=== PATIENT | female | born 1990 | race Caucasian/White ===

== ENCOUNTER 2016-08-05 09:16 | Inpatient (IN) | payer OTHER ==
[~2016-08-05] VITALS: Ht 154.9 cm; Wt 107.5 kg
[~2016-08-05 09:16] MED LIST: CALC667C6 PO; DILT240C32 PO; DILT240C66 PO; ESCI10TA PO; FERR325T58 PO; FEXO180T81 PO; FURO80TA72 PO; HYDR-2869 PO; HYDR25TA9 PO; INSU100I13 SQ; INSU100V3 SQ; LABE100T3 PO; LAMO100T PO; LURA80TA PO; METO10TA PO; METO5TAB4 PO; MULT-206 PO; NORG1TAB39 PO; NORG1TAB7 PO; ONDA4TAB7 PO; OXYC-323 PO; POLY17PO5 PO; PROAIR HFA8.5 GM INH; SODI650T PO; VALS320T9 PO; [UNRECOGNIZED DRUG - OTHER]
[2016-08-05 10:17] LABS: BASO % 0 % (0-3); EOS % 0 % (0-3); HEMATOCRIT 23.9 % (36.0-47.0); HEMOGLOBIN 8.3 g/dL (12.0-15.5); LYMPH # 1.2 x10^3/uL (1.0-4.8); LYMPH % 14 % (24-48); MEAN CORPUSCULAR HEMOGLOBIN 31 pg (25-35); MEAN CORPUSCULAR HGB CONC 35 g/dL (31-37); MEAN CORPUSCULAR VOLUME 90 fL (79-100); MONO % 4 % (0-9); NEUT % 82 % (31-73); PLATELET COUNT 236 x10^3/uL (140-400); RED BLOOD COUNT 2.65 x10^6/uL (3.50-5.40); RED CELL DISTRIBUTION WIDTH 12.7 % (11.5-14.5); WHITE BLOOD COUNT 8.6 x10^3/uL (4.0-11.0)
[2016-08-05 10:25] LABS: CALCIUM 8.7 mg/dL (8.5-10.1); CREATININE 3.4 mg/dL (0.6-1.0); GFR 16.2; POTASSIUM 4.4 mmol/L (3.5-5.1)
[2016-08-05 10:36] LABS: ALBUMIN 2.1 g/dL (3.4-5.0); ALBUMIN/GLOBULIN RATIO 0.5 (1.0-1.7); TOTAL BILIRUBIN 0.3 mg/dL (0.2-1.0); TOTAL PROTEIN 6.2 g/dL (6.4-8.2)
[2016-08-05] MEDS ORDERED: VANCOMYCIN PER PHARMACY MC PRN (10:45)
[2016-08-05] MEDS ORDERED: ACETAMINOPHEN 325 MG TABLET. PO PRN (10:45)
[2016-08-05] MEDS ORDERED: ONDANSETRON PF 4 MG/2 ML VIAL. IV PRN (10:45)
[2016-08-05 10:51] LABS: OBC FLU VALID
[2016-08-05] MEDS ORDERED: VANCOMYCIN 2 GM in IV NORMAL SALINE 500ML BAG 500 ML IV ONE (11:00)
--- NOTE | 2016-08-05 11:13 | PHYS DOC ---
Past Medical History Past Medical History: , Anxiety, Depression, Diabetes-Type II, Hypertension, Renal Failure, Other Additional Past Medical Histor: ESRD,GASTROPARESIS Past Surgical History: Cholecystectomy, Other Additional Past Surgical Histo: L FISTULA Alcohol Use: None Drug Use: None Adult General Chief Complaint Chief Complaint: FEVER HPI HPI Very unfortunate 26-year-old female who has end-stage renal disease on dialysis presents with fever to 102 last night. She has a catheter in her right upper chest which she's had for a couple of weeks now and states there has been some drainage from the area but no tenderness around the catheter. She is really not had any other symptoms to speak of. She denies any cough or congestion she denies back or abdominal pain. She's not had any headache or neck pain. She is concerned that her catheter may be infected. [] Review of Systems Review of Systems Constitutional: Per history of present illness [] Eyes: Denies change in visual acuity, redness, or eye pain [] HENT: Denies nasal congestion or sore throat [] Respiratory: Denies cough or shortness of breath [] Cardiovascular: No additional information not addressed in HPI [] GI: Denies abdominal pain, nausea, vomiting, bloody stools or diarrhea [] : Denies dysuria or hematuria [] Musculoskeletal: Denies back pain or joint pain [] Integument: Denies rash or skin lesions [] Neurologic: Denies headache, focal weakness or sensory changes [] Endocrine: Denies polyuria or polydipsia [] Allergies Allergies Allergies Coded Allergies Type Severity Reaction Last Updated Verified lurasidone Allergy Severe 04/15/16 Yes Physical Exam Physical Exam Constitutional: Well developed, well nourished, no acute distress, non-toxic appearance. [] HENT: Normocephalic, atraumatic, bilateral external ears normal, oropharynx moist, no oral exudates, nose normal. [] Eyes: PERRLA, EOMI, conjunctiva normal, no discharge. [] Neck: Normal range of motion, no tenderness, supple, no stridor. [] Cardiovascular:Heart rate regular rhythm, no murmur [] Lungs & Thorax: Bilateral breath sounds clear to auscultation [] Abdomen: Bowel sounds normal, soft, no tenderness, no masses, no pulsatile masses. [] Skin: She has a dialysis catheter in the right upper chest the tunnel site is not tender there is no drainage there is no erythematous area [] Back: No tenderness, no CVA tenderness. [] Extremities: No tenderness, no cyanosis, no clubbing, ROM intact, no edema. [] Neurologic: Alert and oriented X 3, normal motor function, normal sensory function, no focal deficits noted. [] Psychologic: Affect normal, judgement normal, mood normal. [] Current Patient Data Vital Signs Vital Signs Date Time Temp Pulse Resp B/P Pulse Ox O2 Delivery O2 Flow Rate FiO2 08/05/16 09:25 97.6 105 20 153/69 97 Room Air 97.6 Lab Values Laboratory Tests Test 08/05/16 09:47 08/05/16 10:14 White Blood Count 8.6x10^3/uL (4.0-11.0) Red Blood Count 2.65x10^6/uL (3.50-5.40) L Hemoglobin 8.3g/dL (12.0-15.5) L Hematocrit 23.9% (36.0-47.0) L Mean Corpuscular Volume 90fL (79-100) Mean Corpuscular Hemoglobin 31pg (25-35) Mean Corpuscular Hemoglobin Concent 35g/dL (31-37) Red Cell Distribution Width 12.7% (11.5-14.5) Platelet Count 236x10^3/uL (140-400) Neutrophils (%) (Auto) 82% (31-73) H Lymphocytes (%) (Auto) 14% (24-48) L Monocytes (%) (Auto) 4% (0-9) Eosinophils (%) (Auto) 0% (0-3) Basophils (%) (Auto) 0% (0-3) Neutrophils # (Auto) 7.0x10^3uL (1.8-7.7) Lymphocytes # (Auto) 1.2x10^3/uL (1.0-4.8) Monocytes # (Auto) 0.3x10^3/uL (0.0-1.1) Eosinophils # (Auto) 0.0x10^3/uL (0.0-0.7) Basophils # (Auto) 0.0x10^3/uL (0.0-0.2) Sodium Level 135mmol/L (136-145) L Potassium Level 4.4mmol/L (3.5-5.1) Chloride Level 98mmol/L (98-107) Carbon Dioxide Level 24mmol/L (21-32) Anion Gap 13 (6-14) Blood Urea Nitrogen 41mg/dL (7-20) H Creatinine 3.4mg/dL (0.6-1.0) H Estimated GFR (Cockcroft-Gault) 16.2 BUN/Creatinine Ratio 12 (6-20) Glucose Level 199mg/dL (70-99) H Lactic Acid Level 1.9mmol/L (0.4-2.0) Calcium Level 8.7mg/dL (8.5-10.1) Total Bilirubin 0.3mg/dL (0.2-1.0) Aspartate Amino Transferase (AST) 24U/L (15-37) Alanine Aminotransferase (ALT) 37U/L (14-59) Alkaline Phosphatase 99U/L (46-116) Total Protein 6.2g/dL (6.4-8.2) L Albumin 2.1g/dL (3.4-5.0) L Albumin/Globulin Ratio 0.5 (1.0-1.7) L Influenza Type A Antigen Negative (NEGATIVE) Influenza Type B Antigen Negative (NEGATIVE) Laboratory Tests 08/05/16 09:47 Laboratory Tests 08/05/16 09:47 EKG EKG [] Radiology/Procedures Radiology/Procedures [] Impressions: PROCEDURE: CHEST AP ONLY Indication fever. Protocol study. A single view of the chest was obtained. Comparison is made to a study 04/13/2016. The heart size is within normal limits. There is no congestive heart failure. A focal infiltrate is not seen. There is no pleural fluid or pneumothorax. Right-sided dialysis catheter is noted. IMPRESSION: No acute finding in the chest Course & Med Decision Making Course & Med Decision Making Pertinent Labs and Imaging studies reviewed. (See chart for details) [ED course: Evaluation reveals a 26-year-old male who actually looks pretty well today. She is afebrile in the department. I spoke with her psychiatric secretary to 100 her admitted to the hospital cultures drawn and a dose of vancomycin given. They will follow the cultures and dialyze her as an inpatient today.] Dragon Disclaimer Dragon Disclaimer This electronic medical record was generated, in whole or in part, using a voice recognition dictation system. Departure Departure Impression: Primary Impression: Fever Disposition: 09 ADMITTED INPATIENT Admitting Physician: Valente Molina Condition: STABLE Referrals: SANDRO DORANTES MD (PCP) Problem Qualifiers Primary Impression: Fever Fever type: unspecified Qualified Code: R50.9 - Fever, unspecified CONNOR BULLOCK DO Aug 05, 2016 11:13
[2016-08-05 11:45] VITALS: BP 138/65
--- NOTE | 2016-08-05 12:12 | ACF ---
Admission Forms Criteria FEVER Clinical Indications for Inpatient Care (Place 'X' for any and all applicable criteria): Ongoing inpatient care may be indicated for fever with ANY ONE of the following[ D] (5)(27)(28)(29)(30)(31): [ ]I. Bacteremia [ ]II. Evidence of significant systemic illness as indicated by ANY ONE of the following: [ ]a) Persistently high temperatures greater than 103.1 degrees F ( 39.5 degrees C) (oral) [ ]b) New-onset hypoxia [ ]c) Hemodynamic instability [ ]d) Mental status changes [ ]e) Decreased urine output due to developing renal insufficiency [ ]f) New focal neurologic deficit (eg, stroke) [ ]g) Seizures [ ]h) Rigors [ ]i) Dehydration or hypovolemia [ ]j) Inadequate oral intake [ ]III. Patient in the immediate postoperative period with ANY ONE of the following (E)(23)(24): [ ]a) Evidence of specific localizing infection requiring ongoing inpatient evaluation or treatment (eg,abscess, severe pneumonia, wound infection ) [ ]b) Known or suspected cause of fever requiring ongoing inpatient evaluation or treatment (eg, DVT) [ ]c) Evidence of malignant hyperthermia (eg, unexplained tachycardia and muscle rigidity after depolarizing muscular blocking agent or inhaled anesthetic agent) [ ]IV. Suspected cause requiring acute care (eg, endocarditis, meningitis) [ ]V. High suspicion of bacteremia as indicated by severe constitutional symptoms in patient at high risk as indicated by ANY ONE of the following: [ ]a) Immunocompromised state [D](22) [ ]b) Age <3 years or >65 years [ ]c) Severe comorbidities (eg, poorly controlled diabetes, severe COPD) [ ]. High suspicion for fungal infection as indicated by ANY ONE of the following (22)(25): [ ]a) Febrile neutropenia (WBC <500/mm3 (0.5 X 109/L)) for >4 days despite broad spectrum antibiotics [ ]b) Imaging findings suggestive of fungal infection [ ]c) Immunocompromised state [ ]d) Immunocompromised patient colonized with Aspergillus species [X]VII. Evidence of infection of medical devices such as implanted catheters or exposed hardware [ ]VIII. Suspected neuroleptic malignant syndrome as evidenced by ALL of the following (15): [ ]a) Recent use of neuroleptic medication (eg, haloperidol, prochlorperazine, metoclopramide) [ ]b) New-onset muscle rigidity Extended stay beyond goal length of stay for primary condition may be needed until ALL of the following are present(16)(17)(18)(19)(20)(21): [ ]a) Temperature status acceptable as indicated by ANY ONE of the following: [ ]i) Temp <38.1C (100.5 F) (oral) [ ]ii) Temp as expected for disease process and care performable at next level of care [ ]b) Hemodynamic stability [ ]c) Cultures negative or infection identified and under adequate treatment [ ]d) Behavior or mental status abnormalities absent or manageable at lower level of care (Also use Mental Status Change Criteria Form) for further information. [ ]e) Medical comorbidities absent or manageable at a lower level of care The original [facility] [employer] content created by [facility] has been revised. The portions of the content which have been revised are identified through the use of italic text or in bold, and [facility] has neither reviewed nor approved the modified material. All other unmodified content is copyright [facility]. Please see references footnoted in the original [facility] edition 2016 Admission Criteria Met?: Yes MYKE COHEN Aug 05, 2016 12:12
[2016-08-05] MEDS ORDERED: CYCL10TA2 PO (12:30)
[2016-08-05] MEDS ORDERED: ARIP20TA8 PO (12:30)
[2016-08-05] MEDS ORDERED: VITA0.8T2 PO (12:30)
[2016-08-05] MEDS ORDERED: DOCU-27 PO (12:30)
[2016-08-05] MEDS ORDERED: ERYT250T16 PO (12:30)
[2016-08-05] MEDS ORDERED: ESCI20TA PO (12:30)
[2016-08-05] MEDS ORDERED: OMEG300C PO (12:30)
[2016-08-05] MEDS ORDERED: LIDO700A4 TP (12:30)
[2016-08-05] MEDS ORDERED: INSU100C4 SQ (12:34)
--- NOTE | 2016-08-05 13:08 | RAD ---
Indication fever. Protocol study. A single view of the chest was obtained. Comparison is made to a study 04/13/2016. The heart size is within normal limits. There is no congestive heart failure. A focal infiltrate is not seen. There is no pleural fluid or pneumothorax. Right-sided dialysis catheter is noted. IMPRESSION: No acute finding in the chest
[2016-08-05] MEDS ORDERED: DIALYSIS PATIENT. MC PRN (15:15)
[2016-08-05 15:20] VITALS: BP 138/68
--- NOTE | 2016-08-05 16:07 | PDOC1 ---
History and Physical Past Medical History Past Medical History PAST MEDICAL HISTORY: Significant for: 1. Anxiety disorder in the past. 2. Asthma. 3. Depression. 4. Type 2 diabetes diagnosed in 2007 with diabetic retinopathy. 5. She also has iron deficiency anemia, SOCIAL HISTORY: , lives with her , nonsmoker, nondrinker, denies drug use that we know of. She was a previous smoker. FAMILY HISTORY: Positive for diabetes, Social History ALCOHOL: none Drugs: None Current Problem List Problem List Problems Medical Problems: (1) Fever Status: Acute Current Medications Current Medications Current Medications Medications (Trade) Dose Ordered Sig/Sherine Start Time Stop Time Status Last Admin Dose Admin Acetaminophen (Tylenol) 650 mg PRN Q4HRS PRN 08/05/16 10:45 08/06/16 10:44 08/05/16 11:56 650 MG Info (PHARMACY MONITORING -- do not chart) 1 each PRN DAILY PRN 08/05/16 15:15 Ondansetron HCl (Zofran) 4 mg PRN Q8HRS PRN 08/05/16 10:45 08/06/16 10:44 Vancomycin HCl 1 each 1 each PRN DAILY PRN 08/05/16 10:45 Vancomycin HCl/ Sodium Chloride (Iv Sodium Chloride 0.9% 500ml Bag) 500 ml @ 250 mls/hr 1X ONCE 08/05/16 11:00 08/05/16 12:59 DC 08/05/16 10:56 250 MLS/HR Allergies Allergies Allergies Coded Allergies Type Severity Reaction Last Updated Verified lurasidone Allergy Severe 04/15/16 Yes ROS Review of System CONSTITUTIONAL: No fever or chills EYES: No recent changes SKIN: fever and discharge at catheter site. CARDIOVASCULAR: No chest pain, syncope, palpitations, or edema RESPIRATORY: No SOB or cough GASTROINTESTINAL: No nausea, vomiting or abdominal pain NEUROLOGICAL: No headaches or weakness ENDOCRINE: No cold or heat intolerance GENITOURINARY: No urgency or frequency of urination MUSCULOSKELETAL: No back pain or joint pain LYMPHATICS: No enlarged lymph nodes PSYCHIATRIC: No anxiety or depression Physical Exam Physical Exam GEN.: No apparent distress. Alert and oriented. HEENT: Head is normocephalic, atraumatic NECK: Supple. no jvd LUNGS: Clear to auscultation. normal airflow HEART: RRR, S1, S2 present. Peripheral pulses intact ABDOMEN: Soft, nontender. Positive bowel sounds. EXTREMITIES: Without any cyanosis. NEUROLOGIC: Normal speech, normal tone PSYCHIATRIC: Normal affect, normal mood. SKIN: No visible ulcerations, cath site clear, no discharge. Vitals Vitals Vital Signs Date Time Temp Pulse Resp B/P Pulse Ox O2 Delivery O2 Flow Rate FiO2 08/05/16 15:20 99.4 87 20 138/68 96 Room Air 99.4 Labs Labs Laboratory Tests Test 08/05/16 09:47 08/05/16 10:14 08/05/16 11:48 White Blood Count 8.6x10^3/uL (4.0-11.0) Red Blood Count 2.65x10^6/uL (3.50-5.40) Hemoglobin 8.3g/dL (12.0-15.5) Hematocrit 23.9% (36.0-47.0) Mean Corpuscular Volume 90fL (79-100) Mean Corpuscular Hemoglobin 31pg (25-35) Mean Corpuscular Hemoglobin Concent 35g/dL (31-37) Red Cell Distribution Width 12.7% (11.5-14.5) Platelet Count 236x10^3/uL (140-400) Neutrophils (%) (Auto) 82% (31-73) Lymphocytes (%) (Auto) 14% (24-48) Monocytes (%) (Auto) 4% (0-9) Eosinophils (%) (Auto) 0% (0-3) Basophils (%) (Auto) 0% (0-3) Neutrophils # (Auto) 7.0x10^3uL (1.8-7.7) Lymphocytes # (Auto) 1.2x10^3/uL (1.0-4.8) Monocytes # (Auto) 0.3x10^3/uL (0.0-1.1) Eosinophils # (Auto) 0.0x10^3/uL (0.0-0.7) Basophils # (Auto) 0.0x10^3/uL (0.0-0.2) Sodium Level 135mmol/L (136-145) Potassium Level 4.4mmol/L (3.5-5.1) Chloride Level 98mmol/L (98-107) Carbon Dioxide Level 24mmol/L (21-32) Anion Gap 13 (6-14) Blood Urea Nitrogen 41mg/dL (7-20) Creatinine 3.4mg/dL (0.6-1.0) Estimated GFR (Cockcroft-Gault) 16.2 BUN/Creatinine Ratio 12 (6-20) Glucose Level 199mg/dL (70-99) Lactic Acid Level 1.9mmol/L (0.4-2.0) Calcium Level 8.7mg/dL (8.5-10.1) Total Bilirubin 0.3mg/dL (0.2-1.0) Aspartate Amino Transf (AST/SGOT) 24U/L (15-37) Alanine Aminotransferase (ALT/SGPT) 37U/L (14-59) Alkaline Phosphatase 99U/L (46-116) Total Protein 6.2g/dL (6.4-8.2) Albumin 2.1g/dL (3.4-5.0) Albumin/Globulin Ratio 0.5 (1.0-1.7) Influenza Type A Antigen Negative (NEGATIVE) Influenza Type B Antigen Negative (NEGATIVE) Glucose (Fingerstick) 133mg/dL (70-99) Laboratory Tests Test 08/05/16 09:47 08/05/16 10:14 08/05/16 11:48 White Blood Count 8.6x10^3/uL (4.0-11.0) Red Blood Count 2.65x10^6/uL (3.50-5.40) Hemoglobin 8.3g/dL (12.0-15.5) Hematocrit 23.9% (36.0-47.0) Mean Corpuscular Volume 90fL (79-100) Mean Corpuscular Hemoglobin 31pg (25-35) Mean Corpuscular Hemoglobin Concent 35g/dL (31-37) Red Cell Distribution Width 12.7% (11.5-14.5) Platelet Count 236x10^3/uL (140-400) Neutrophils (%) (Auto) 82% (31-73) Lymphocytes (%) (Auto) 14% (24-48) Monocytes (%) (Auto) 4% (0-9) Eosinophils (%) (Auto) 0% (0-3) Basophils (%) (Auto) 0% (0-3) Neutrophils # (Auto) 7.0x10^3uL (1.8-7.7) Lymphocytes # (Auto) 1.2x10^3/uL (1.0-4.8) Monocytes # (Auto) 0.3x10^3/uL (0.0-1.1) Eosinophils # (Auto) 0.0x10^3/uL (0.0-0.7) Basophils # (Auto) 0.0x10^3/uL (0.0-0.2) Sodium Level 135mmol/L (136-145) Potassium Level 4.4mmol/L (3.5-5.1) Chloride Level 98mmol/L (98-107) Carbon Dioxide Level 24mmol/L (21-32) Anion Gap 13 (6-14) Blood Urea Nitrogen 41mg/dL (7-20) Creatinine 3.4mg/dL (0.6-1.0) Estimated GFR (Cockcroft-Gault) 16.2 BUN/Creatinine Ratio 12 (6-20) Glucose Level 199mg/dL (70-99) Lactic Acid Level 1.9mmol/L (0.4-2.0) Calcium Level 8.7mg/dL (8.5-10.1) Total Bilirubin 0.3mg/dL (0.2-1.0) Aspartate Amino Transf (AST/SGOT) 24U/L (15-37) Alanine Aminotransferase (ALT/SGPT) 37U/L (14-59) Alkaline Phosphatase 99U/L (46-116) Total Protein 6.2g/dL (6.4-8.2) Albumin 2.1g/dL (3.4-5.0) Albumin/Globulin Ratio 0.5 (1.0-1.7) Influenza Type A Antigen Negative (NEGATIVE) Influenza Type B Antigen Negative (NEGATIVE) Glucose (Fingerstick) 133mg/dL (70-99) VTE Prophylaxis Ordered VTE Prophylaxis Devices: Yes VTE Pharmacological Prophylaxi: Yes FRANCIE BLAIR MD Aug 05, 2016 16:07
[2016-08-05] MEDS ORDERED: POLYETHYLENE GLYCOL 3350 17 GM PACKET. PO PRN (16:15)
[2016-08-05] MEDS ORDERED: NON FORMULARY ITEM (Albuterol Sulfate (Proair Hfa Inhaler) 1 PUFF) INH PRN (16:15)
[2016-08-05] MEDS ORDERED: ONDANSETRON ODT 4 MG TAB.RAPDIS PO PRN (16:30)
[2016-08-05] MEDS ORDERED: ALBUTEROL SULFATE 2.5 MG/3 ML NEBU. NEB PRN (16:30)
[2016-08-05] MEDS: METOCLOPRAMIDE 10 MG TABLET PO SCH (16:30)
[2016-08-05] MEDS: CALCIUM ACETATE 667 MG CAPSULE PO SCH (16:37)
[2016-08-05] MEDS: INSULIN ASPART 300 UNITS/3 ML INSULN.PEN SQ SCH (17:00)
[2016-08-05] MEDS ORDERED: INSULIN ASPART 300 UNITS/3 ML INSULN.PEN SQ SCH (17:00)
[2016-08-05] MEDS: OXYCODONE/APAP 5/325 TABLET. PO PRN ×2 (17:24→23:30)
--- NOTE | 2016-08-05 17:37 | PDOC2 ---
CONSULT Date of Consult Date of Consult DATE: 08/05/16 TIME: 17:32 Reason for Consult Reason for Consult: ESRD Referring Physician Referring Physician: Dr goldstein Identification/Chief Complaint Chief Complaint Fever Problems: Source Source: Chart review, Patient History of Present Illness Reason for Visit: as dictated Social History No ALCOHOL: none Drugs: None Lives: with Family Domestic Violence: Neg Current Problem List Problem List Problems Medical Problems: (1) Fever Status: Acute Current Medications Current Medications Current Medications Ondansetron HCl (Zofran) 4 mg PRN Q8HRS PRN IV NAUSEA/VOMITING; Start 08/05/16 at 10:45; Stop 08/06/16 at 10:44 Acetaminophen (Tylenol) 650 mg PRN Q4HRS PRN PO FEVER Last administered on 11:56; Start 08/05/16 at 10:45; Stop 08/06/16 at 10:44 Vancomycin HCl 1 each 1 each PRN DAILY PRN MC SEE COMMENTS; Start 08/05/16 at 10 :45; Stop 08/05/16 at 16:16; Status DC Vancomycin HCl/ Sodium Chloride (Iv Sodium Chloride 0.9% 500ml Bag) 500 ml @ 250 mls/hr 1X ONCE IV Last administered on 08/05/16 10:56; Start 08/05/16 at 11 :00; Stop 08/05/16 at 12:59; Status DC Info (PHARMACY MONITORING -- do not chart) 1 each PRN DAILY PRN MC SEE COMMENTS ; Start 08/05/16 at 15:15 Heparin Sodium (Porcine) 5,000 unit Q8HRS SQ ; Start 08/05/16 at 22:00 Vancomycin HCl (Vanco Per Pharmacy) 1 each PRN DAILY PRN MC SEE COMMENTS; Start 08/05/16 at 16:15 Calcium Acetate (Phoslo) 1,334 mg TIDWMEALS PO ; Start 08/05/16 at 17:00 Cyclobenzaprine HCl (Flexeril) 10 mg DAILY PO ; Start 08/06/16 at 09:00 Docusate Sodium (Colace) 100 mg DAILY PO ; Start 08/06/16 at 09:00 Furosemide (Lasix) 80 mg TID PO ; Start 08/05/16 at 21:00 Hydralazine HCl (Apresoline) 50 mg HS PO ; Start 08/05/16 at 21:00 Hydrochlorothiazide (Hydrodiuril) 25 mg DAILY PO ; Start 08/06/16 at 09:00 Labetalol HCl (Trandate) 100 mg BID PO ; Start 08/05/16 at 21:00 Lamotrigine (LaMICtal) 100 mg BID PO ; Start 08/05/16 at 21:00 Lidocaine (Lidoderm) 1 patch DAILY TP ; Start 08/06/16 at 09:00 Metoclopramide HCl (Reglan) 10 mg TIDBFRMEAL PO ; Start 08/05/16 at 16:30 Polyethylene Glycol (miraLAX PACKET) 17 gm PRN DAILY PRN PO CONSTIPATION 1ST CHOICE; Start 08/05/16 at 16:15 Non-Formulary Medication 1 puff PRN Q6HRS PRN INH SHORTNESS OF BREATH; Start at 16:15; Status UNV Aripiprazole (Abilify) 20 mg DAILY PO ; Start 08/06/16 at 09:00 Erythromycin (E-Mycin) 250 mg BID PO ; Start 08/05/16 at 21:00 Escitalopram Oxalate (Lexapro) 20 mg DAILY PO ; Start 08/06/16 at 09:00 Insulin Detemir (Levemir) 25 units QHS SQ ; Start 08/05/16 at 21:00 Insulin Aspart (Novolog) 15 units TIDWMEALS SQ ; Start 08/05/16 at 17:00; Stop at 17:00; Status DC Metolazone (Zaroxolyn) 5 mg DAILY PO ; Start 08/06/16 at 09:00 Multivitamins/ Calcium (Thera M Plus) 1 tab DAILY PO ; Start 08/06/16 at 09:00 Non-Formulary Medication 1 tab DAILY PO ; Start 08/06/16 at 09:00; Status UNV Fish Oil (Fish Oil) 1,000 mg DAILY PO ; Start 08/06/16 at 09:00 Ondansetron HCl (Zofran Odt) 4 mg PRN Q8HRS PRN PO NAUSEA/VOMITING; Start at 16:30 Losartan Potassium (Cozaar) 100 mg DAILY PO ; Start 08/06/16 at 09:00 Folic Acid/ Multivitamins/Vit B12 (Nephro-Robert) 1 tab DAILY PO ; Start 08/06/16 at 09:00 Albuterol Sulfate (Ventolin Neb Soln) 2.5 mg PRN Q6HRS PRN NEB SHORTNESS OF BREATH; Start 08/05/16 at 16:30 Insulin Aspart (Novolog) 20 units TIDWMEALS SQ ; Start 08/05/16 at 17:00 Oxycodone/ Acetaminophen (Percocet 5/325) 1 tab PRN Q4HRS PRN PO PAIN SEVERE Last administered on 08/05/16t 17:24; Start 08/05/16 at 17:15 Active Scripts Active Miralax (Polyethylene Glycol 3350) 17 Gm Powd.pack 17 Gm PO PRN DAILY PRN Metoclopramide Hcl 10 Mg Tablet 10 Mg PO TIDBFRMEAL Reported Novolog (Insulin Aspart) 100 Unit/1 Ml Cartridge 20 Unit SQ TIDWMEALS Dionisio-Tab (Erythromycin Base) 250 Mg Tablet.dr 250 Mg PO BID Dialyvite 800 With Zinc (Vitamin B Comp W-C/Fa/Zinc) 0.8 Mg Tablet 0.8 Mg PO DAILY Escitalopram Oxalate 20 Mg Tablet 1 Tab PO DAILY Fish Oil (Benton-3 Fatty Acids) 300 Mg Capsule 300 Mg PO DAILY Colace (Docusate Sodium) 100 Mg Capsule 1 Cap PO DAILY Cyclobenzaprine Hcl 10 Mg Tablet 1 Tab PO DAILY Abilify (Aripiprazole) 20 Mg Tablet 20 Mg PO DAILY Lidoderm (Lidocaine) 700 Mg Adh..patch 1 Patch TP DAILY Percocet 5-325 Mg Tablet (Oxycodone/Acetaminophen) 1 Each Tablet 1 Tab PO PRN Q4 -6HRS PRN Metolazone 5 Mg Tablet 5 Mg PO DAILY Lamotrigine 100 Mg Tablet 1 Tab PO BID Valsartan 320 Mg Tablet 320 Mg PO DAILY Zofran (Ondansetron Hcl) 4 Mg Tablet 4 Mg PO TID PRN Essential Daily (Multivit With Calcium,Iron,Min) 1 Each Tablet 1 Each PO DAILY Lasix (Furosemide) 80 Mg Tablet 80 Mg PO TID Trinessa (Norgestimate-Ethinyl Estradiol) 1 Each Tablet 1 Tab PO DAILY Phoslo (Calcium Acetate) 667 Mg Capsule 1,334 Mg PO TIDWMEALS Proair Hfa Inhaler (Albuterol Sulfate) 8.5 Gm Hfa.aer.ad 1 Puff INH PRN Q6HRS PRN Hydralazine Hcl 50 Mg Tablet 1 Tab PO HS Tri-Sprintec (Norgestimate-Ethinyl Estradiol) 1 Each Tablet 1 Tab PO DAILY Hydrochlorothiazide Tablet (Hydrochlorothiazide) 25 Mg Tablet 1 Tab PO DAILY Labetalol Hcl 100 Mg Tablet 1 Tab PO BID Humalog Mix 75-25 Vial (Insulin Npl/Insulin Lispro) 100 Unit/1 Ml Vial 15 Unit SQ TIDAC Lantus Solostar (Insulin Glargine,Hum.rec.anlog) 100 Unit/1 Ml Insuln.pen 25 Unit SQ QHS Allergies Allergies: Coded Allergies: lurasidone (Verified Allergy, Severe, 04/15/16) Rash, seizure (due to combination with other medications per patient-does not take any longer due to reaction) ROS Review of System GEN: + Fevers + Chills EYES: no new Visual Complaints ENT: no EN Drainage no Hearing deficiets CVS: no Orthopnea no CP RESP: min SOB no CUI GI: min Nausea + Vomiting : no Dysuria no Urgency HEME: no easy bruising no Palp Ly Nodes NEURO no Focal Weakness no Sz PSYCH: no Suicidal Ideation min Depression SKIN: no new Rashes ENDO: no Polyuria or Polydipsia no Hot/Cold Intolerance MU SK: no Arthraigia no Myalgia Physical Exam Physical Exam General Appearance: Awake Alert Oriented x 3 In no Distress; she is cold and covered in numerous Blankets Eyes: VIsion Unchanged Conjunctiva Normal EN: No EN Drainage Mucous Memb. moist Neck: no JVD no JVP Supple no Thyromegaly; short neck CVS: S1 S2 ?soft Murmur No Gallop No Rub +1 Edema Resp: no Rales no Rhonchi no Acc. Muscle use GI: BS +ve NO Bruit Non Tender Non Distended : no CVA tenderness; no Suprapubic Tenderness SKIN: no Rashes Breast Exam deferred Mu.Sk: Adequate ROM no Muscle Atrophy Heme: Unable to palpate Obvious LAD no Splenomegaly NEURO: Good Strength and Tone Cranial Nerves II - XII grossly intact; NO Asterixis Psych: not Depressed no Active hallucination Vital Signs Vital Signs Date Time Temp Pulse Resp B/P Pulse Ox O2 Delivery O2 Flow Rate FiO2 08/05/16 17:24 Room Air 08/05/16 15:20 99.4 87 20 138/68 96 99.4 Assessment & Plan ESRD: TTSat (Missed as OP today) Seen on HD; keke fine for now : Vital on HD: 140/71 98 97.5 ESRD : Dialysis as below F 180 NR 3.0 Hrs 3 K 2.5 Ca 140 Na 30 HC03 Qb 350 + Qd 500+ Heparin 0 Units Uf 3-4 Kgs or to dry weight as tolerated May give 25-50 gms of 25% Albumin if needed to maintain Hemodynamic stability Treatment plan reviewed and discussed with sheet rock hanger Fevers - vanc given after Bl Cx done in ER ? infected HD Cath - May need to remove it. AV access in left Upper arm has no bruit or thrill Anemia: Epogen as ordere, Transfuse with next HD as needed. HTN: Current BP meds reviewed. See orders for changes. Bone & Mineral: follow phos and alter binder regimen Low ALb - ? Still Nephrotic vs due to Poor PO intake associated with gastroparesis and Ch NV Discussed Plan of Care and prognosis etc. at length with family and Pt Labs Labs Laboratory Tests Test 08/05/16 09:47 08/05/16 10:14 08/05/16 11:48 White Blood Count 8.6x10^3/uL (4.0-11.0) Red Blood Count 2.65x10^6/uL (3.50-5.40) Hemoglobin 8.3g/dL (12.0-15.5) Hematocrit 23.9% (36.0-47.0) Mean Corpuscular Volume 90fL (79-100) Mean Corpuscular Hemoglobin 31pg (25-35) Mean Corpuscular Hemoglobin Concent 35g/dL (31-37) Red Cell Distribution Width 12.7% (11.5-14.5) Platelet Count 236x10^3/uL (140-400) Neutrophils (%) (Auto) 82% (31-73) Lymphocytes (%) (Auto) 14% (24-48) Monocytes (%) (Auto) 4% (0-9) Eosinophils (%) (Auto) 0% (0-3) Basophils (%) (Auto) 0% (0-3) Neutrophils # (Auto) 7.0x10^3uL (1.8-7.7) Lymphocytes # (Auto) 1.2x10^3/uL (1.0-4.8) Monocytes # (Auto) 0.3x10^3/uL (0.0-1.1) Eosinophils # (Auto) 0.0x10^3/uL (0.0-0.7) Basophils # (Auto) 0.0x10^3/uL (0.0-0.2) Sodium Level 135mmol/L (136-145) Potassium Level 4.4mmol/L (3.5-5.1) Chloride Level 98mmol/L (98-107) Carbon Dioxide Level 24mmol/L (21-32) Anion Gap 13 (6-14) Blood Urea Nitrogen 41mg/dL (7-20) Creatinine 3.4mg/dL (0.6-1.0) Estimated GFR (Cockcroft-Gault) 16.2 BUN/Creatinine Ratio 12 (6-20) Glucose Level 199mg/dL (70-99) Lactic Acid Level 1.9mmol/L (0.4-2.0) Calcium Level 8.7mg/dL (8.5-10.1) Total Bilirubin 0.3mg/dL (0.2-1.0) Aspartate Amino Transf (AST/SGOT) 24U/L (15-37) Alanine Aminotransferase (ALT/SGPT) 37U/L (14-59) Alkaline Phosphatase 99U/L (46-116) Total Protein 6.2g/dL (6.4-8.2) Albumin 2.1g/dL (3.4-5.0) Albumin/Globulin Ratio 0.5 (1.0-1.7) Influenza Type A Antigen Negative (NEGATIVE) Influenza Type B Antigen Negative (NEGATIVE) Glucose (Fingerstick) 133mg/dL (70-99) Laboratory Tests Test 08/05/16 09:47 08/05/16 10:14 08/05/16 11:48 White Blood Count 8.6x10^3/uL (4.0-11.0) Red Blood Count 2.65x10^6/uL (3.50-5.40) Hemoglobin 8.3g/dL (12.0-15.5) Hematocrit 23.9% (36.0-47.0) Mean Corpuscular Volume 90fL (79-100) Mean Corpuscular Hemoglobin 31pg (25-35) Mean Corpuscular Hemoglobin Concent 35g/dL (31-37) Red Cell Distribution Width 12.7% (11.5-14.5) Platelet Count 236x10^3/uL (140-400) Neutrophils (%) (Auto) 82% (31-73) Lymphocytes (%) (Auto) 14% (24-48) Monocytes (%) (Auto) 4% (0-9) Eosinophils (%) (Auto) 0% (0-3) Basophils (%) (Auto) 0% (0-3) Neutrophils # (Auto) 7.0x10^3uL (1.8-7.7) Lymphocytes # (Auto) 1.2x10^3/uL (1.0-4.8) Monocytes # (Auto) 0.3x10^3/uL (0.0-1.1) Eosinophils # (Auto) 0.0x10^3/uL (0.0-0.7) Basophils # (Auto) 0.0x10^3/uL (0.0-0.2) Sodium Level 135mmol/L (136-145) Potassium Level 4.4mmol/L (3.5-5.1) Chloride Level 98mmol/L (98-107) Carbon Dioxide Level 24mmol/L (21-32) Anion Gap 13 (6-14) Blood Urea Nitrogen 41mg/dL (7-20) Creatinine 3.4mg/dL (0.6-1.0) Estimated GFR (Cockcroft-Gault) 16.2 BUN/Creatinine Ratio 12 (6-20) Glucose Level 199mg/dL (70-99) Lactic Acid Level 1.9mmol/L (0.4-2.0) Calcium Level 8.7mg/dL (8.5-10.1) Total Bilirubin 0.3mg/dL (0.2-1.0) Aspartate Amino Transf (AST/SGOT) 24U/L (15-37) Alanine Aminotransferase (ALT/SGPT) 37U/L (14-59) Alkaline Phosphatase 99U/L (46-116) Total Protein 6.2g/dL (6.4-8.2) Albumin 2.1g/dL (3.4-5.0) Albumin/Globulin Ratio 0.5 (1.0-1.7) Influenza Type A Antigen Negative (NEGATIVE) Influenza Type B Antigen Negative (NEGATIVE) Glucose (Fingerstick) 133mg/dL (70-99) Images Images A single view of the chest was obtained. Comparison is made to a study 04/13/2016. The heart size is within normal limits. There is no congestive heart failure. A focal infiltrate is not seen. There is no pleural fluid or pneumothorax. Right-sided dialysis catheter is noted. IMPRESSION: No acute finding in the chest EDWARD MOTA MD Aug 05, 2016 17:36
[2016-08-05] MEDS: VANCOMYCIN PER PHARMACY MC PRN (17:56)
[2016-08-05 19:30] VITALS: BP 129/74
[2016-08-05] MEDS: ERYTHROMYCIN BASE 250 MG TABLET PO SCH (20:55)
[2016-08-05] MEDS: lamoTRIgine 25 MG TABLET. PO SCH (20:56)
[2016-08-05] MEDS: FUROSEMIDE 80 MG TABLET PO SCH (20:56)
[2016-08-05] MEDS: HYDRALAZINE 50 MG TABLET PO SCH (20:56)
[2016-08-05] MEDS: LABETALOL HCL 200 MG TABLET PO SCH (20:57)
[2016-08-05] MEDS ORDERED: INSULIN ASPART 300 UNITS/3 ML INSULN.PEN SQ ONE (21:00)
[2016-08-05] MEDS: INSULIN DETEMIR 300 UNITS/3 ML INSULN.PEN. SQ SCH (21:08)
[2016-08-05] MEDS: HEPARIN PF for SUB-Q USE 5,000 UNIT/0.5 ML VIAL. SQ SCH (21:09)
[2016-08-05 23:32] VITALS: BP 131/62
--- NOTE | 2016-08-06 02:49 | HP ---
ADMIT DATE: 08/05/2016 CHIEF COMPLAINT: Subjective fevers. HISTORY OF PRESENT ILLNESS: A 26-year-old female patient with prior history of having CKD IV on hemodialysis and diabetes mellitus, presented to the ER with complaints of subjective fevers as per the patient. She is recorded temperature around 102 and also noted to have some discharge from the right upper chest from the catheter area; however, I could not able to see any discharge or erythema around the catheter. She has been currently undergoing hemodialysis. Her bevel polisher, Dr. Ayo Lassiter. The patient denies any other symptoms such as nausea, vomiting, cough or any other rash anywhere or sick contacts. PAST MEDICAL HISTORY, REVIEW OF SYSTEMS AND PHYSICAL EXAMINATION: Please see my electronic H and P. LABORATORY FINDINGS: Sodium 135, potassium 4.4, chloride is 98, carbon dioxide 24, anion gap is 13, BUN is 41, creatinine is 3.4, glucose is 199. Hematology: WBC is 8.6, hemoglobin is 8.3, hematocrit 23.9. IMAGING STUDIES: Chest x-ray: No acute finding seen. ASSESSMENT: 1. Suspected hemodialysis catheter infection. 2. Chronic kidney disease IV on hemodialysis. 3. Anxiety. 4. Depression. 5. Type 2 diabetes mellitus. 6. Hypertension. PLAN: 1. The patient received a one-time dose of vancomycin and will consult nephrology for further recommendations. We will continue vancomycin, pharmacy to dose. 2. Nephrology to determine dialysis schedule and also if symptoms do not get better, we will consult Infectious Disease. 3. Obtain cultures from the local site if any discharge presents. 4. Sliding scale insulin for hyperglycemia. 5. Resume home medications. No contraindication seen. 6. DVT prophylaxis with heparin. 7. CBC, BMP in a.m. FRANCIE BLAIR MD DR: FAUSTO/raza JOB#: [id number] / [id number] ARNEL
[2016-08-06 03:24] VITALS: BP 114/55
[2016-08-06] MEDS: OXYCODONE/APAP 5/325 TABLET. PO PRN ×4 (03:56→21:02)
[2016-08-06] MEDS: HEPARIN PF for SUB-Q USE 5,000 UNIT/0.5 ML VIAL. SQ SCH ×3 (05:25→22:13)
[2016-08-06 05:44] LABS: CALCIUM 8.7 mg/dL (8.5-10.1); CREATININE 3.4 mg/dL (0.6-1.0); GFR 16.2; POTASSIUM 4.8 mmol/L (3.5-5.1)
[2016-08-06] MEDS ORDERED: VANCOMYCIN RANDOM LEVEL. MC ONE (06:00)
[2016-08-06 06:41] LABS: BASO % 1 % (0-3); EOS % 1 % (0-3); HEMATOCRIT 25.5 % (36.0-47.0); HEMOGLOBIN 8.8 g/dL (12.0-15.5); LYMPH # 1.7 x10^3/uL (1.0-4.8); LYMPH % 22 % (24-48); MEAN CORPUSCULAR HEMOGLOBIN 32 pg (25-35); MEAN CORPUSCULAR HGB CONC 35 g/dL (31-37); MEAN CORPUSCULAR VOLUME 91 fL (79-100); MONO % 5 % (0-9); NEUT % 71 % (31-73); PLATELET COUNT 245 x10^3/uL (140-400); RED CELL DISTRIBUTION WIDTH 13.1 % (11.5-14.5); WHITE BLOOD COUNT 7.7 x10^3/uL (4.0-11.0)
[2016-08-06] MEDS: VANCOMYCIN PER PHARMACY MC PRN ×2 (06:49→13:14)
[2016-08-06 07:00] VITALS: BP 100/52
[2016-08-06] MEDS: METOCLOPRAMIDE 10 MG TABLET PO SCH ×2 (07:30→11:30)
[2016-08-06] MEDS: METOLAZONE 2.5 MG TABLET PO SCH (08:35)
[2016-08-06] MEDS: DOCUSATE SODIUM 100 MG CAPSULE PO SCH (08:35)
[2016-08-06] MEDS: FUROSEMIDE 80 MG TABLET PO SCH ×3 (08:36→21:02)
[2016-08-06] MEDS: ERYTHROMYCIN BASE 250 MG TABLET PO SCH ×2 (08:36→21:02)
[2016-08-06] MEDS: ESCITALOPRAM 10 MG TABLET. PO SCH (08:36)
[2016-08-06] MEDS: LOSARTAN POTASSIUM 50 MG TABLET. PO SCH (08:37)
[2016-08-06] MEDS: lamoTRIgine 25 MG TABLET. PO SCH ×2 (08:37→21:04)
[2016-08-06] MEDS: CALCIUM ACETATE 667 MG CAPSULE PO SCH ×3 (08:38→17:30)
[2016-08-06] MEDS: HYDROCHLOROTHIAZIDE 25 MG TABLET PO SCH (08:38)
[2016-08-06] MEDS: OMEGA-3 FATTY ACIDS/FISH OIL 1,000 MG CAPSULE. PO SCH (08:38)
[2016-08-06] MEDS: FOLIC/VIT B COMP W-C (RENAL) TABLET. PO SCH (08:38)
[2016-08-06] MEDS: LABETALOL HCL 200 MG TABLET PO SCH ×2 (08:38→21:06)
[2016-08-06] MEDS: MULTIVITAMIN with MINERAL TABLET. PO SCH (08:38)
[2016-08-06] MEDS: LIDOCAINE (700MG/PATCH) PATCH. TP SCH (08:41)
[2016-08-06] MEDS: INSULIN ASPART 300 UNITS/3 ML INSULN.PEN SQ SCH ×3 (08:53→17:38)
[2016-08-06] MEDS ORDERED: CYCLOBENZAPRINE 10 MG TABLET. PO SCH (09:00)
[2016-08-06] MEDS ORDERED: ARIPIPRAZOLE 5 MG TABLET. PO SCH (09:00)
[2016-08-06] MEDS ORDERED: NORGESTIMATE ETHINYL ESTRADIOL PO SCH (09:00)
[2016-08-06 11:00] VITALS: BP 126/47
--- NOTE | 2016-08-06 11:18 | PDOC ---
SUBJECTIVE ROS ESRD doing and feeling better today CVS: no Orthopnea, no CP RESP: no SOB, no CUI GI: min Nausea, occ Vomiting : no Dysuria, no Urgency OBJECTIVE Vital Signs Vital Signs Date Time Temp Pulse Resp B/P Pulse Ox O2 Delivery O2 Flow Rate FiO2 08/06/16 10:00 Room Air 08/06/16 08:38 84 100/52 08/06/16 07:00 98.7 16 93 98.7 I & 0 Intake and Output 08/06/16 07:00 Intake Total 240 ml Output Total 300 ml Balance -60 ml Intake Oral 240 ml Output Urine Total 300 ml PHYSICAL EXAM Physical Exam General Appearance: Awake Alert Oriented x 3 In no Distress; Eyes: VIsion Unchanged Conjunctiva Normal EN: No EN Drainage Mucous Memb. moist Neck: no JVD no JVP Supple no Thyromegaly; short neck CVS: S1 S2 ?soft Murmur No Gallop No Rub +1 Edema Resp: no Rales no Rhonchi no Acc. Muscle use GI: BS +ve NO Bruit Non Tender Non Distended - Obese : no CVA tenderness; no Suprapubic Tenderness DIAGNOSIS/ASSESSMENT Assessment & Plan ESRD: Current fluid and E-lyte status does not necessitate emergent need for dialysis. Will re-evaluate for dialysis in the am and continue on TTsat schedule. Fevers - vanc given after Bl Cx here (? Source)- so far Afebrile. She did get 1gm of vanc at the HD unit too on 08/04 ? infected HD Cath - will remove HD. AV access in left Upper arm has no bruit or thrill - await Cultures (Prelim - staph) Anemia: Epogen as ordered, Transfuse with next HD as needed. HTN: Current BP meds reviewed. See orders for changes. Bone & Mineral: follow phos and alter binder regimen Low ALb - ? Still Nephrotic vs due to Poor PO intake associated with gastroparesis and Ch NV Discussed Plan of Care and prognosis etc. at length with family (), Dr Rodriguez, IR for cath removal and Pt Problems: COMMENT/RELEVANT DATA Meds Current Medications Medications (Trade) Dose Ordered Sig/Sherine Start Time Stop Time Status Last Admin Dose Admin Acetaminophen (Tylenol) 650 mg PRN Q4HRS PRN 08/05/16 10:45 08/06/16 10:44 DC 08/05/16 11:56 650 MG Albuterol Sulfate (Ventolin Neb Soln) 2.5 mg PRN Q6HRS PRN 08/05/16 16:30 Aripiprazole (Abilify) 20 mg HS 08/06/16 21:00 Calcium Acetate (Phoslo) 1,334 mg TIDWMEALS 08/05/16 17:00 08/06/16 08:38 1,334 MG Cyclobenzaprine HCl (Flexeril) 10 mg PRN DAILY PRN 08/06/16 09:43 Docusate Sodium (Colace) 100 mg DAILY 08/06/16 09:00 08/06/16 08:35 100 MG Erythromycin (E-Mycin) 250 mg BID 08/05/16 21:00 08/06/16 08:36 250 MG Escitalopram Oxalate (Lexapro) 20 mg DAILY 08/06/16 09:00 08/06/16 08:36 20 MG Fish Oil (Fish Oil) 1,000 mg DAILY 08/06/16 09:00 08/06/16 08:38 1,000 MG Folic Acid/ Multivitamins/Vit B12 (Nephro-Robert) 1 tab DAILY 08/06/16 09:00 08/06/16 08:38 1 TAB Furosemide (Lasix) 80 mg TID 08/05/16 21:00 08/06/16 08:36 80 MG Heparin Sodium (Porcine) 5,000 unit Q8HRS 08/05/16 22:00 08/05/16 21:09 5,000 UNIT Hydralazine HCl (Apresoline) 50 mg HS 08/05/16 21:00 08/05/16 20:56 50 MG Hydrochlorothiazide (Hydrodiuril) 25 mg DAILY 08/06/16 09:00 08/06/16 08:38 25 MG Info (PHARMACY MONITORING -- do not chart) 1 each PRN DAILY PRN 08/05/16 15:15 Insulin Aspart (Novolog) 20 units 1X ONCE 08/05/16 21:00 08/05/16 21:04 DC 08/05/16 21:00 20 UNITS Insulin Detemir (Levemir) 25 units QHS 08/05/16 21:00 08/05/16 21:08 25 UNITS Labetalol HCl (Trandate) 100 mg BID 08/05/16 21:00 08/06/16 08:38 100 MG Lamotrigine (LaMICtal) 100 mg BID 08/05/16 21:00 08/06/16 08:37 100 MG Lidocaine (Lidoderm) 1 patch DAILY 08/06/16 09:00 08/06/16 08:41 1 PATCH Losartan Potassium (Cozaar) 100 mg DAILY 08/06/16 09:00 08/06/16 08:37 100 MG Metoclopramide HCl (Reglan) 10 mg TIDBFRMEAL 08/05/16 16:30 Metolazone (Zaroxolyn) 5 mg DAILY 08/06/16 09:00 08/06/16 08:35 5 MG Multivitamins/ Calcium (Thera M Plus) 1 tab DAILY 08/06/16 09:00 08/06/16 08:38 1 TAB Non-Formulary Medication 1 tab DAILY 08/06/16 09:00 UNV Ondansetron HCl (Zofran Odt) 4 mg PRN Q8HRS PRN 08/05/16 16:30 Ondansetron HCl (Zofran) 4 mg PRN Q8HRS PRN 08/05/16 10:45 08/06/16 10:44 DC Oxycodone/ Acetaminophen (Percocet 5/325) 1 tab PRN Q4HRS PRN 08/05/16 17:15 08/06/16 08:38 1 TAB Polyethylene Glycol (miraLAX PACKET) 17 gm PRN DAILY PRN 08/05/16 16:15 Vancomycin HCl 1 each 1X ONCE 08/07/16 06:00 08/07/16 06:01 Vancomycin HCl (Vanco Per Pharmacy) 1 each PRN DAILY PRN 08/05/16 16:15 08/06/16 06:49 1 EACH Vancomycin HCl 1 each 1 each PRN DAILY PRN 08/05/16 10:45 08/05/16 16:16 DC Vancomycin HCl/ Sodium Chloride (Iv Sodium Chloride 0.9% 500ml Bag) 500 ml @ 250 mls/hr 1X ONCE 08/05/16 11:00 08/05/16 12:59 DC 08/05/16 10:56 250 MLS/HR Lab Laboratory Tests Test 08/05/16 11:48 08/05/16 18:23 08/05/16 20:35 08/06/16 04:35 Glucose (Fingerstick) 133mg/dL (70-99) 223mg/dL (70-99) 436mg/dL (70-99) White Blood Count 7.7x10^3/uL (4.0-11.0) Red Blood Count 2.80x10^6/uL (3.50-5.40) Hemoglobin 8.8g/dL (12.0-15.5) Hematocrit 25.5% (36.0-47.0) Mean Corpuscular Volume 91fL (79-100) Mean Corpuscular Hemoglobin 32pg (25-35) Mean Corpuscular Hemoglobin Concent 35g/dL (31-37) Red Cell Distribution Width 13.1% (11.5-14.5) Platelet Count 245x10^3/uL (140-400) Neutrophils (%) (Auto) 71% (31-73) Lymphocytes (%) (Auto) 22% (24-48) Monocytes (%) (Auto) 5% (0-9) Eosinophils (%) (Auto) 1% (0-3) Basophils (%) (Auto) 1% (0-3) Neutrophils # (Auto) 5.5x10^3uL (1.8-7.7) Lymphocytes # (Auto) 1.7x10^3/uL (1.0-4.8) Monocytes # (Auto) 0.4x10^3/uL (0.0-1.1) Eosinophils # (Auto) 0.1x10^3/uL (0.0-0.7) Basophils # (Auto) 0.0x10^3/uL (0.0-0.2) Sodium Level 137mmol/L (136-145) Potassium Level 4.8mmol/L (3.5-5.1) Chloride Level 99mmol/L (98-107) Carbon Dioxide Level 26mmol/L (21-32) Anion Gap 12 (6-14) Blood Urea Nitrogen 27mg/dL (7-20) Creatinine 3.4mg/dL (0.6-1.0) Estimated GFR (Cockcroft-Gault) 16.2 Glucose Level 104mg/dL (70-99) Calcium Level 8.7mg/dL (8.5-10.1) Random Vancomycin Level 27.3mcg/mL Test 08/06/16 07:36 Glucose (Fingerstick) 137mg/dL (70-99) EDWARD MOTA MD Aug 06, 2016 11:18
[2016-08-06 11:58] LABS: PROTHROMBIN TIME PATIENT 12.6 SEC (11.7-14.0)
[2016-08-06] MEDS ORDERED: HEPARIN for IV BOLUS 10,000 UNIT/10 ML VIAL. ONE (12:32)
[2016-08-06] MEDS ORDERED: LIDOCAINE 1%/EPI 1:100,000 20 ML VIAL. ONE (12:32)
[2016-08-06 12:41] LABS: BILIRUBIN,URINE MODERATE (NEG); GLUCOSE,URINE 500 mg/dL (NEG); NITRITE,URINE NEGATIVE (NEG); PH,URINE 5.5; PROTEIN,URINE >=300 mg/dL (NEG-TRACE)
[2016-08-06 13:03] LABS: BACTERIA,URINE FEW /HPF (0-FEW); RBC,URINE 0 /HPF (0-2); SQUAMOUS EPITHELIAL CELL,UR MANY /LPF; YEAST,URINE PRESENT /HPF
--- NOTE | 2016-08-06 13:33 | PDOC ---
Infectious Disease Note ROS ROS GEN: Denies fevers, chills, sweats HEENT: Denies blurred vision, sore throat CV: Denies chest pain RESP: Denies shortness of air, cough GI: Denies n/v/d NEURO: Denies confusion, dizziness MSK: Denies weakness, joint pain/swelling Vital Sign Vital Signs Vital Signs Date Time Temp Pulse Resp B/P Pulse Ox O2 Delivery O2 Flow Rate FiO2 08/06/16 11:00 97.5 100 18 126/47 95 Room Air 97.5 Physical Exam PHYSICAL EXAM GENERAL: NAD, Alert HEENT: PERRL, OC/OP NECK: Supple, no JVD, no LN LUNGS: Clear HEART: S1S2, no gallop, no murmur ABD: Soft, NT, no organomegaly, no rebound EXT: No edema, no cyanosis CASE BRIEFER: Alert, oriented x 3, no focal neurologic deficit SKIN: No rash IV: ok Labs Lab Laboratory Tests Test 08/05/16 18:23 08/05/16 20:35 08/06/16 04:35 08/06/16 07:36 Glucose (Fingerstick) 223mg/dL (70-99) 436mg/dL (70-99) 137mg/dL (70-99) White Blood Count 7.7x10^3/uL (4.0-11.0) Red Blood Count 2.80x10^6/uL (3.50-5.40) Hemoglobin 8.8g/dL (12.0-15.5) Hematocrit 25.5% (36.0-47.0) Mean Corpuscular Volume 91fL (79-100) Mean Corpuscular Hemoglobin 32pg (25-35) Mean Corpuscular Hemoglobin Concent 35g/dL (31-37) Red Cell Distribution Width 13.1% (11.5-14.5) Platelet Count 245x10^3/uL (140-400) Neutrophils (%) (Auto) 71% (31-73) Lymphocytes (%) (Auto) 22% (24-48) Monocytes (%) (Auto) 5% (0-9) Eosinophils (%) (Auto) 1% (0-3) Basophils (%) (Auto) 1% (0-3) Neutrophils # (Auto) 5.5x10^3uL (1.8-7.7) Lymphocytes # (Auto) 1.7x10^3/uL (1.0-4.8) Monocytes # (Auto) 0.4x10^3/uL (0.0-1.1) Eosinophils # (Auto) 0.1x10^3/uL (0.0-0.7) Basophils # (Auto) 0.0x10^3/uL (0.0-0.2) Prothrombin Time 12.6SEC (11.7-14.0) Prothromb Time International Ratio 1.0 (0.8-1.1) Sodium Level 137mmol/L (136-145) Potassium Level 4.8mmol/L (3.5-5.1) Chloride Level 99mmol/L (98-107) Carbon Dioxide Level 26mmol/L (21-32) Anion Gap 12 (6-14) Blood Urea Nitrogen 27mg/dL (7-20) Creatinine 3.4mg/dL (0.6-1.0) Estimated GFR (Cockcroft-Gault) 16.2 Glucose Level 104mg/dL (70-99) Calcium Level 8.7mg/dL (8.5-10.1) Random Vancomycin Level 27.3mcg/mL Test 08/06/16 11:54 Glucose (Fingerstick) 126mg/dL (70-99) Objective Assessment Fever Staph infection - line CKD on HD DM Contaminated Urine specimen Plan Plan of Care Cont Vanc F/u cults and labs Cath to be removed D/w D/w Drs. Lassiter and Michael # [id number] SHARON MUELLER MD Aug 06, 2016 13:32
--- NOTE | 2016-08-06 13:46 | PDOC ---
PROGRESS NOTES Chief Complaint Chief Complaint sepsis on admit, vital now improved bacterial infection of dialysis catheter, Gm pos Cocci ESRD, HD m obesity, BMI 43 htn insomnia DM, insulin anemia of ESRD History of Present Illness History of Present Illness feels well, improved dsypnea and fatigue are better Vitals Vitals Vital Signs Date Time Temp Pulse Resp B/P Pulse Ox O2 Delivery O2 Flow Rate FiO2 08/06/16 11:00 97.5 100 18 126/47 95 Room Air 97.5 Physical Exam General: Alert, Oriented X3, Cooperative, No acute distress Heart: Regular rate Lungs: Clear Abdomen: Normal bowel sounds, Soft Skin: No rashes, Other (exudate from base of HD cath, end of tunnel area) Labs LABS Laboratory Tests Test 08/05/16 18:23 08/05/16 20:35 08/06/16 04:35 08/06/16 07:36 Glucose (Fingerstick) 223mg/dL (70-99) 436mg/dL (70-99) 137mg/dL (70-99) White Blood Count 7.7x10^3/uL (4.0-11.0) Red Blood Count 2.80x10^6/uL (3.50-5.40) Hemoglobin 8.8g/dL (12.0-15.5) Hematocrit 25.5% (36.0-47.0) Mean Corpuscular Volume 91fL (79-100) Mean Corpuscular Hemoglobin 32pg (25-35) Mean Corpuscular Hemoglobin Concent 35g/dL (31-37) Red Cell Distribution Width 13.1% (11.5-14.5) Platelet Count 245x10^3/uL (140-400) Neutrophils (%) (Auto) 71% (31-73) Lymphocytes (%) (Auto) 22% (24-48) Monocytes (%) (Auto) 5% (0-9) Eosinophils (%) (Auto) 1% (0-3) Basophils (%) (Auto) 1% (0-3) Neutrophils # (Auto) 5.5x10^3uL (1.8-7.7) Lymphocytes # (Auto) 1.7x10^3/uL (1.0-4.8) Monocytes # (Auto) 0.4x10^3/uL (0.0-1.1) Eosinophils # (Auto) 0.1x10^3/uL (0.0-0.7) Basophils # (Auto) 0.0x10^3/uL (0.0-0.2) Prothrombin Time 12.6SEC (11.7-14.0) Prothromb Time International Ratio 1.0 (0.8-1.1) Sodium Level 137mmol/L (136-145) Potassium Level 4.8mmol/L (3.5-5.1) Chloride Level 99mmol/L (98-107) Carbon Dioxide Level 26mmol/L (21-32) Anion Gap 12 (6-14) Blood Urea Nitrogen 27mg/dL (7-20) Creatinine 3.4mg/dL (0.6-1.0) Estimated GFR (Cockcroft-Gault) 16.2 Glucose Level 104mg/dL (70-99) Calcium Level 8.7mg/dL (8.5-10.1) Random Vancomycin Level 27.3mcg/mL Test 08/06/16 11:54 Glucose (Fingerstick) 126mg/dL (70-99) Review of Systems Review of Systems insomnia no n,.v.d Assessment and Plan Assessmemt and Plan home meds IV abx remove HD cath needs temp line left arm AV fistula healing poorly Problems Medical Problems: (1) Fever Status: Acute Problems: Comment Review of Relevant I have reviewed the following items kathya (where applicable) has been applied. Labs Laboratory Tests Test 08/05/16 09:47 08/05/16 10:14 08/05/16 11:20 08/05/16 11:48 White Blood Count 8.6x10^3/uL (4.0-11.0) Red Blood Count 2.65x10^6/uL (3.50-5.40) Hemoglobin 8.3g/dL (12.0-15.5) Hematocrit 23.9% (36.0-47.0) Mean Corpuscular Volume 90fL (79-100) Mean Corpuscular Hemoglobin 31pg (25-35) Mean Corpuscular Hemoglobin Concent 35g/dL (31-37) Red Cell Distribution Width 12.7% (11.5-14.5) Platelet Count 236x10^3/uL (140-400) Neutrophils (%) (Auto) 82% (31-73) Lymphocytes (%) (Auto) 14% (24-48) Monocytes (%) (Auto) 4% (0-9) Eosinophils (%) (Auto) 0% (0-3) Basophils (%) (Auto) 0% (0-3) Neutrophils # (Auto) 7.0x10^3uL (1.8-7.7) Lymphocytes # (Auto) 1.2x10^3/uL (1.0-4.8) Monocytes # (Auto) 0.3x10^3/uL (0.0-1.1) Eosinophils # (Auto) 0.0x10^3/uL (0.0-0.7) Basophils # (Auto) 0.0x10^3/uL (0.0-0.2) Sodium Level 135mmol/L (136-145) Potassium Level 4.4mmol/L (3.5-5.1) Chloride Level 98mmol/L (98-107) Carbon Dioxide Level 24mmol/L (21-32) Anion Gap 13 (6-14) Blood Urea Nitrogen 41mg/dL (7-20) Creatinine 3.4mg/dL (0.6-1.0) Estimated GFR (Cockcroft-Gault) 16.2 BUN/Creatinine Ratio 12 (6-20) Glucose Level 199mg/dL (70-99) Lactic Acid Level 1.9mmol/L (0.4-2.0) Calcium Level 8.7mg/dL (8.5-10.1) Total Bilirubin 0.3mg/dL (0.2-1.0) Aspartate Amino Transf (AST/SGOT) 24U/L (15-37) Alanine Aminotransferase (ALT/SGPT) 37U/L (14-59) Alkaline Phosphatase 99U/L (46-116) Total Protein 6.2g/dL (6.4-8.2) Albumin 2.1g/dL (3.4-5.0) Albumin/Globulin Ratio 0.5 (1.0-1.7) Influenza Type A Antigen Negative (NEGATIVE) Influenza Type B Antigen Negative (NEGATIVE) Urine Collection Type Unknown Urine Color Latosha Urine Clarity Turbid Urine pH 5.5 Urine Specific Kimberly >=1.030 Urine Protein >=300mg/dL (NEG-TRACE) Urine Glucose (UA) 500mg/dL (NEG) Urine Ketones (Stick) Tracemg/dL (NEG) Urine Blood Negative (NEG) Urine Nitrite Negative (NEG) Urine Bilirubin Moderate (NEG) Urine Urobilinogen Dipstick 1.0mg/dL (0.2 mg/dL) Urine Leukocyte Esterase Small (NEG) Urine RBC 0/HPF (0-2) Urine WBC 1-4/HPF (0-4) Urine Squamous Epithelial Cells Many/LPF Urine Renal Epithelial Cells Occ/LPF Urine Bacteria Few/HPF (0-FEW) Urine Yeast Present/HPF Glucose (Fingerstick) 133mg/dL (70-99) Test 08/05/16 18:23 08/05/16 20:35 08/06/16 04:35 08/06/16 07:36 Glucose (Fingerstick) 223mg/dL (70-99) 436mg/dL (70-99) 137mg/dL (70-99) White Blood Count 7.7x10^3/uL (4.0-11.0) Red Blood Count 2.80x10^6/uL (3.50-5.40) Hemoglobin 8.8g/dL (12.0-15.5) Hematocrit 25.5% (36.0-47.0) Mean Corpuscular Volume 91fL (79-100) Mean Corpuscular Hemoglobin 32pg (25-35) Mean Corpuscular Hemoglobin Concent 35g/dL (31-37) Red Cell Distribution Width 13.1% (11.5-14.5) Platelet Count 245x10^3/uL (140-400) Neutrophils (%) (Auto) 71% (31-73) Lymphocytes (%) (Auto) 22% (24-48) Monocytes (%) (Auto) 5% (0-9) Eosinophils (%) (Auto) 1% (0-3) Basophils (%) (Auto) 1% (0-3) Neutrophils # (Auto) 5.5x10^3uL (1.8-7.7) Lymphocytes # (Auto) 1.7x10^3/uL (1.0-4.8) Monocytes # (Auto) 0.4x10^3/uL (0.0-1.1) Eosinophils # (Auto) 0.1x10^3/uL (0.0-0.7) Basophils # (Auto) 0.0x10^3/uL (0.0-0.2) Prothrombin Time 12.6SEC (11.7-14.0) Prothromb Time International Ratio 1.0 (0.8-1.1) Sodium Level 137mmol/L (136-145) Potassium Level 4.8mmol/L (3.5-5.1) Chloride Level 99mmol/L (98-107) Carbon Dioxide Level 26mmol/L (21-32) Anion Gap 12 (6-14) Blood Urea Nitrogen 27mg/dL (7-20) Creatinine 3.4mg/dL (0.6-1.0) Estimated GFR (Cockcroft-Gault) 16.2 Glucose Level 104mg/dL (70-99) Calcium Level 8.7mg/dL (8.5-10.1) Random Vancomycin Level 27.3mcg/mL Test 08/06/16 11:54 Glucose (Fingerstick) 126mg/dL (70-99) Laboratory Tests Test 08/05/16 18:23 08/05/16 20:35 08/06/16 04:35 08/06/16 07:36 Glucose (Fingerstick) 223mg/dL (70-99) 436mg/dL (70-99) 137mg/dL (70-99) White Blood Count 7.7x10^3/uL (4.0-11.0) Red Blood Count 2.80x10^6/uL (3.50-5.40) Hemoglobin 8.8g/dL (12.0-15.5) Hematocrit 25.5% (36.0-47.0) Mean Corpuscular Volume 91fL (79-100) Mean Corpuscular Hemoglobin 32pg (25-35) Mean Corpuscular Hemoglobin Concent 35g/dL (31-37) Red Cell Distribution Width 13.1% (11.5-14.5) Platelet Count 245x10^3/uL (140-400) Neutrophils (%) (Auto) 71% (31-73) Lymphocytes (%) (Auto) 22% (24-48) Monocytes (%) (Auto) 5% (0-9) Eosinophils (%) (Auto) 1% (0-3) Basophils (%) (Auto) 1% (0-3) Neutrophils # (Auto) 5.5x10^3uL (1.8-7.7) Lymphocytes # (Auto) 1.7x10^3/uL (1.0-4.8) Monocytes # (Auto) 0.4x10^3/uL (0.0-1.1) Eosinophils # (Auto) 0.1x10^3/uL (0.0-0.7) Basophils # (Auto) 0.0x10^3/uL (0.0-0.2) Prothrombin Time 12.6SEC (11.7-14.0) Prothromb Time International Ratio 1.0 (0.8-1.1) Sodium Level 137mmol/L (136-145) Potassium Level 4.8mmol/L (3.5-5.1) Chloride Level 99mmol/L (98-107) Carbon Dioxide Level 26mmol/L (21-32) Anion Gap 12 (6-14) Blood Urea Nitrogen 27mg/dL (7-20) Creatinine 3.4mg/dL (0.6-1.0) Estimated GFR (Cockcroft-Gault) 16.2 Glucose Level 104mg/dL (70-99) Calcium Level 8.7mg/dL (8.5-10.1) Random Vancomycin Level 27.3mcg/mL Test 08/06/16 11:54 Glucose (Fingerstick) 126mg/dL (70-99) Microbiology 08/05/16 Blood Culture - Preliminary, Resulted NO GROWTH AFTER 1 DAY Medications Current Medications Ondansetron HCl (Zofran) 4 mg PRN Q8HRS PRN IV NAUSEA/VOMITING; Start 08/05/16 at 10:45; Stop 08/06/16 at 10:44; Status DC Acetaminophen (Tylenol) 650 mg PRN Q4HRS PRN PO FEVER Last administered on t 11:56; Start 08/05/16 at 10:45; Stop 08/06/16 at 10:44; Status DC Vancomycin HCl 1 each 1 each PRN DAILY PRN MC SEE COMMENTS; Start 08/05/16 at 10 :45; Stop 08/05/16 at 16:16; Status DC Vancomycin HCl/ Sodium Chloride (Iv Sodium Chloride 0.9% 500ml Bag) 500 ml @ 250 mls/hr 1X ONCE IV Last administered on 08/05/16 10:56; Start 08/05/16 at 11 :00; Stop 08/05/16 at 12:59; Status DC Info (PHARMACY MONITORING -- do not chart) 1 each PRN DAILY PRN MC SEE COMMENTS ; Start 08/05/16 at 15:15 Heparin Sodium (Porcine) 5,000 unit Q8HRS SQ Last administered on 08/05/16 21: 09; Start 08/05/16 at 22:00 Vancomycin HCl (Vanco Per Pharmacy) 1 each PRN DAILY PRN MC SEE COMMENTS Last administered on 08/06/16 13:14; Start 08/05/16 at 16:15 Calcium Acetate (Phoslo) 1,334 mg TIDWMEALS PO Last administered on 08/06/16 12:14; Start 08/05/16 at 17:00 Cyclobenzaprine HCl (Flexeril) 10 mg DAILY PO ; Start 08/06/16 at 09:00; Stop at 09:45; Status DC Docusate Sodium (Colace) 100 mg DAILY PO Last administered on 08/06/16 08:35; Start 08/06/16 at 09:00 Furosemide (Lasix) 80 mg TID PO Last administered on 08/06/16 08:36; Start 08/05/16 at 21:00 Hydralazine HCl (Apresoline) 50 mg HS PO Last administered on 08/05/16 20:56; Start 08/05/16 at 21:00 Hydrochlorothiazide (Hydrodiuril) 25 mg DAILY PO Last administered on 08:38; Start 08/06/16 at 09:00 Labetalol HCl (Trandate) 100 mg BID PO Last administered on 08/06/16 08:38; Start 08/05/16 at 21:00 Lamotrigine (LaMICtal) 100 mg BID PO Last administered on 08/06/16 08:37; Start 08/05/16 at 21:00 Lidocaine (Lidoderm) 1 patch DAILY TP Last administered on 08/06/16 08:41; Start 08/06/16 at 09:00 Metoclopramide HCl (Reglan) 10 mg TIDBFRMEAL PO ; Start 08/05/16 at 16:30; Stop 08/06/16 at 13:00; Status DC Polyethylene Glycol (miraLAX PACKET) 17 gm PRN DAILY PRN PO CONSTIPATION 1ST CHOICE; Start 08/05/16 at 16:15 Non-Formulary Medication 1 puff PRN Q6HRS PRN INH SHORTNESS OF BREATH; Start at 16:15; Status UNV Aripiprazole (Abilify) 20 mg DAILY PO ; Start 08/06/16 at 09:00; Stop 08/06/16 at 09:45; Status DC Erythromycin (E-Mycin) 250 mg BID PO Last administered on 08/06/16 08:36; Start 08/05/16 at 21:00 Escitalopram Oxalate (Lexapro) 20 mg DAILY PO Last administered on 08/06/16 08 :36; Start 08/06/16 at 09:00 Insulin Detemir (Levemir) 25 units QHS SQ Last administered on 08/05/16 21:08; Start 08/05/16 at 21:00 Insulin Aspart (Novolog) 15 units TIDWMEALS SQ ; Start 08/05/16 at 17:00; Stop at 17:00; Status DC Metolazone (Zaroxolyn) 5 mg DAILY PO Last administered on 08/06/16 08:35; Start 08/06/16 at 09:00 Multivitamins/ Calcium (Thera M Plus) 1 tab DAILY PO Last administered on 08:38; Start 08/06/16 at 09:00 Non-Formulary Medication 1 tab DAILY PO ; Start 08/06/16 at 09:00; Status UNV Fish Oil (Fish Oil) 1,000 mg DAILY PO Last administered on 08/06/16 08:38; Start 08/06/16 at 09:00 Ondansetron HCl (Zofran Odt) 4 mg PRN Q8HRS PRN PO NAUSEA/VOMITING; Start at 16:30 Losartan Potassium (Cozaar) 100 mg DAILY PO Last administered on 08/06/16 08: 37; Start 08/06/16 at 09:00 Folic Acid/ Multivitamins/Vit B12 (Nephro-Robert) 1 tab DAILY PO Last administered on 08/06/16 08:38; Start 08/06/16 at 09:00 Albuterol Sulfate (Ventolin Neb Soln) 2.5 mg PRN Q6HRS PRN NEB SHORTNESS OF BREATH; Start 08/05/16 at 16:30 Insulin Aspart (Novolog) 20 units TIDWMEALS SQ Last administered on 08/06/16 12:25; Start 08/05/16 at 17:00 Oxycodone/ Acetaminophen (Percocet 5/325) 1 tab PRN Q4HRS PRN PO PAIN SEVERE Last administered on 08/06/16 08:38; Start 08/05/16 at 17:15 Vancomycin HCl 1 each 1X ONCE MC Last administered on 08/06/16 06:00; Start 08/06/16 at 06:00; Stop 08/06/16 at 06:01; Status DC Insulin Aspart (Novolog) 20 units 1X ONCE SQ Last administered on 08/05/16 21: 00; Start 08/05/16 at 21:00; Stop 08/05/16 at 21:04; Status DC Vancomycin HCl 1 each 1X ONCE MC ; Start 08/07/16 at 06:00; Stop 08/07/16 at 06 :00; Status DC Aripiprazole (Abilify) 20 mg HS PO ; Start 08/06/16 at 21:00 Cyclobenzaprine HCl (Flexeril) 10 mg PRN DAILY PRN PO MUSCLE SPASMS; Start 04/12 at 09:43 Darbepoetin Brendon (Aranesp) 100 mcg WEEKLYHS SQ ; Start 08/06/16 at 21:00 Heparin Sodium (Porcine) 10,000 unit STK-MED ONCE .ROUTE ; Start 08/06/16 at 12: 32; Stop 08/06/16 at 12:33; Status DC Lidocaine/ Epinephrine 20 ml 20 ml STK-MED ONCE .ROUTE ; Start 08/06/16 at 12:32 ; Stop 08/06/16 at 12:33; Status DC Heparin Sodium/ Sodium Chloride 500 ml @ As Directed STK-MED ONCE .ROUTE ; Start 08/06/16 at 12:32; Stop 08/06/16 at 12:33; Status DC Metoclopramide HCl (Reglan) 2.5 mg TIDBFRMEAL PO ; Start 08/06/16 at 16:30 Vancomycin HCl 1 each 1X ONCE MC ; Start 08/08/16 at 06:00; Stop 08/08/16 at 06 :01 Active Scripts Active Miralax (Polyethylene Glycol 3350) 17 Gm Powd.pack 17 Gm PO PRN DAILY PRN Metoclopramide Hcl 10 Mg Tablet 10 Mg PO TIDBFRMEAL Reported Novolog (Insulin Aspart) 100 Unit/1 Ml Cartridge 20 Unit SQ TIDWMEALS Dionisio-Tab (Erythromycin Base) 250 Mg Tablet.dr 250 Mg PO BID Dialyvite 800 With Zinc (Vitamin B Comp W-C/Fa/Zinc) 0.8 Mg Tablet 0.8 Mg PO DAILY Escitalopram Oxalate 20 Mg Tablet 1 Tab PO DAILY Fish Oil ([place]-3 Fatty Acids) 300 Mg Capsule 300 Mg PO DAILY Colace (Docusate Sodium) 100 Mg Capsule 1 Cap PO DAILY Cyclobenzaprine Hcl 10 Mg Tablet 1 Tab PO DAILY Abilify (Aripiprazole) 20 Mg Tablet 20 Mg PO DAILY Lidoderm (Lidocaine) 700 Mg Adh..patch 1 Patch TP DAILY Percocet 5-325 Mg Tablet (Oxycodone/Acetaminophen) 1 Each Tablet 1 Tab PO PRN Q4 -6HRS PRN Metolazone 5 Mg Tablet 5 Mg PO DAILY Lamotrigine 100 Mg Tablet 1 Tab PO BID Valsartan 320 Mg Tablet 320 Mg PO DAILY Zofran (Ondansetron Hcl) 4 Mg Tablet 4 Mg PO TID PRN Essential Daily (Multivit With Calcium,Iron,Min) 1 Each Tablet 1 Each PO DAILY Lasix (Furosemide) 80 Mg Tablet 80 Mg PO TID Trinessa (Norgestimate-Ethinyl Estradiol) 1 Each Tablet 1 Tab PO DAILY Phoslo (Calcium Acetate) 667 Mg Capsule 1,334 Mg PO TIDWMEALS Proair Hfa Inhaler (Albuterol Sulfate) 8.5 Gm Hfa.aer.ad 1 Puff INH PRN Q6HRS PRN Hydralazine Hcl 50 Mg Tablet 1 Tab PO HS Tri-Sprintec (Norgestimate-Ethinyl Estradiol) 1 Each Tablet 1 Tab PO DAILY Hydrochlorothiazide Tablet (Hydrochlorothiazide) 25 Mg Tablet 1 Tab PO DAILY Labetalol Hcl 100 Mg Tablet 1 Tab PO BID Humalog Mix 75-25 Vial (Insulin Npl/Insulin Lispro) 100 Unit/1 Ml Vial 15 Unit SQ TIDAC Lantus Solostar (Insulin Glargine,Hum.rec.anlog) 100 Unit/1 Ml Insuln.pen 25 Unit SQ QHS Vitals/I & O Vital Sign - Last 24 Hours 08/05/16 08/05/16 08/05/16 08/05/16 14:01 15:20 17:24 19:30 Temp 99.4 98.4 99.4 98.4 Pulse 87 109 Resp 20 20 B/P 138/68 129/74 Pulse Ox 96 98 O2 Delivery Room Air Room Air Room Air Room Air 08/05/16 08/05/16 08/05/16 08/05/16 20:00 20:56 20:57 22:30 Pulse 109 109 B/P 129/74 129/74 Pulse Ox 98 O2 Delivery Room Air 08/05/16 08/05/16 08/06/16 08/06/16 23:30 23:32 03:24 03:56 Temp 98.6 98.2 98.6 98.2 Pulse 97 90 Resp 20 16 14 18 B/P 131/62 114/55 Pulse Ox 94 95 O2 Delivery Room Air Room Air Room Air Room Air 08/06/16 08/06/16 08/06/16 08/06/16 05:14 07:00 08:00 08:37 Temp 98.7 98.7 Pulse 84 84 Resp 18 16 B/P 100/52 100/52 Pulse Ox 93 O2 Delivery Room Air Room Air 08/06/16 08/06/16 08/06/16 08/06/16 08:38 08:38 10:00 11:00 Temp 97.5 97.5 Pulse 84 100 Resp 18 B/P 100/52 126/47 Pulse Ox 95 O2 Delivery Room Air Room Air Room Air Intake and Output 08/05/16 08/05/16 08/06/16 15:00 23:00 07:00 Intake Total 240 ml Output Total 300 ml 0 ml Balance -300 ml 240 ml JOSE HARRISON MD Aug 06, 2016 13:46
[2016-08-06] MEDS ORDERED: DEXTROSE 50% 25 GM / 50ML DISP.SYRIN. IV ONE (14:10)
[2016-08-06] MEDS ORDERED: LIDOCAINE 1%/EPI 1:100,000 20 ML VIAL. IJ ONE (14:45)
--- NOTE | 2016-08-06 14:51 | PDOC ---
BRIEF OPERATIVE NOTE Pre-Op Diagnosis ARF and infected HD catheter Post-Op Diagnosis same Procedure Performed Removal of infected R IJ tunnelled HD catheter and placement of a new L IJ temp HD catheter Surgeon Brendon Anesthesia Type: Local Specimens Obtained Catheter tip Complications No immediate HERIBERTO CISSE MD Aug 06, 2016 14:51
[2016-08-06 15:00] VITALS: BP 140/70
--- NOTE | 2016-08-06 15:49 | RAD ---
Procedure: Temporary hemodialysis catheter placement under fluoroscopy, and removal of an infected right tunneled hemodialysis catheter under fluoroscopy Clinical Indication: 26-year-old with acute renal failure and infected right tunneled hemodialysis catheter Sedation: Local anesthesia only Antibiotics: None Fluoro Time: 0.4 minutes. Images: 1 Contrast: None Sterility: All elements of maximal sterile barrier technique including the use of a cap, mask, sterile gown, sterile gloves, large sterile sheet, appropriate hand hygiene, and 2% chlorhexidine for cutaneous antisepsis (or acceptable alternative antiseptic per current guidelines) were followed for this procedure. Consent: The procedure was explained in its entirety to the patient or the patients designated franchise sales representative by a member of the treatment team, including a discussion of the risks, benefits and commonly accepted alternatives to the procedure, as well as the expected consequences of no therapy whatsoever. Discussion of the risks included, but was not limited to, those that are most frequent and those that are rare but possibly severe or life-threatening, as well as the possibility of unforeseen complications. Technique and Findings: Following informed consent, the patient was prepped and draped in the usual sterile fashion. Ultrasound interrogation of the left neck revealed patency and compressibility of the left internal jugular vein. A 21-gauge micropuncture needle was used to gain access to this vein after 1% Lidocaine was used to achieve local anesthesia. A hardcopy ultrasound image was recorded. The needle was exchanged over a wire for serial dilators followed by a 24 cm Schon temporary hemodialysis catheter which was deployed under fluoroscopic guidance such that the distal tip resided in the mid right atrium. The catheter flow rates were assessed manually and found to be excellent. The catheter was then flushed, packed with Heparin, capped, and sutured to the skin. Attention was then turned to the right neck which was prepped and draped in usual sterile fashion. The tunnelled hemodialysis catheter was then gently coaxed from its tract without significant difficulty due to fernandez infection. The catheter was removed in its entirety and hemostasis over the neck was achieved with manual compression. The tract was serially irrigated with vancomycin impregnated sterile saline. The catheter tip was sent for microbiologic analysis. The final fluoroscopic image demonstrated no residual radiopaque foreign body. Complications: No immediate Impression: 1. Ultrasound and fluoroscopic guided placement of a temporary hemodialysis catheter which exhibits excellent manual flow rates as described. 2. Removal of an infected tunneled hemodialysis catheter using fluoroscopic guidance.
[2016-08-06] MEDS: METOCLOPRAMIDE 5 MG TABLET PO SCH (16:30)
--- NOTE | 2016-08-06 18:31 | CONS ---
DATE OF CONSULTATION: PRIMARY PHYSICIAN: Dr. Molina. REASON FOR CONSULTATION: ESRD, on dialysis. HISTORY OF PRESENT ILLNESS: The patient is a pleasant 26-year-old female. She dialyzes on a Tuesday, , Tuesday basis. She was at dialysis on Tuesday and was noted to have small amounts of drainage from her dialysis catheter exit site. This was cultured. She was feeling okay until she got home, she developed fevers, chills and the highest fever of at least 101. She has been feeling cold, has had some chills and she presented to the ER for the same. Today is her regular dialysis day. She missed her dialysis as an outpatient and hence was admitted for dialysis as well as for assessment of her fever. PAST MEDICAL HISTORY: Significant for: 1. Anxiety disorder, depression, asthma, type 2 diabetes with retinopathy. 2. ESRD. 3. Iron deficiency anemia. 4. ____ edema, anasarca. 5. Cholecystectomy. 6. Bipolar disorder. 7. Tobaccoism in the past. FAMILY HISTORY: Positive for diabetes. SOCIAL HISTORY: , lives with her , nonsmoker, nondrinker, denies drug use ____ she is a previous smoker though. For rest of the details, see electronic records. EDWARD MOTA MD DR: DEBI/raza JOB#: [id number] / [id number]
[2016-08-06 19:00] VITALS: BP 137/63
[2016-08-06] MEDS ORDERED: DEXTROSE 50% 25 GM / 50ML DISP.SYRIN. IV PRN (19:45)
[2016-08-06] MEDS ORDERED: DARBEPOETIN ALFA 100 MCG/0.5 ML DISP.SYRIN. SQ SCH (21:00)
[2016-08-06] MEDS: ARIPIPRAZOLE 5 MG TABLET. PO SCH (21:02)
[2016-08-06] MEDS: HYDRALAZINE 50 MG TABLET PO SCH (21:05)
[2016-08-06 23:00] VITALS: BP 111/55
[2016-08-06] MEDS: INSULIN DETEMIR 300 UNITS/3 ML INSULN.PEN. SQ SCH (23:54)
[2016-08-07 03:00] VITALS: BP 121/57
[2016-08-07] MEDS ORDERED: VANCOMYCIN RANDOM LEVEL. MC ONE (06:00)
[2016-08-07] MEDS: HEPARIN PF for SUB-Q USE 5,000 UNIT/0.5 ML VIAL. SQ SCH ×3 (06:31→21:21)
[2016-08-07] MEDS: METOCLOPRAMIDE 5 MG TABLET PO SCH ×3 (07:30→17:07)
[2016-08-07] MEDS: CALCIUM ACETATE 667 MG CAPSULE PO SCH ×3 (08:00→17:06)
[2016-08-07] MEDS: INSULIN ASPART 300 UNITS/3 ML INSULN.PEN SQ SCH ×3 (08:00→17:15)
[2016-08-07 08:33] VITALS: BP 97/60
[2016-08-07] MEDS: MULTIVITAMIN with MINERAL TABLET. PO SCH (09:00)
[2016-08-07] MEDS: DOCUSATE SODIUM 100 MG CAPSULE PO SCH (09:00)
[2016-08-07] MEDS: FOLIC/VIT B COMP W-C (RENAL) TABLET. PO SCH (09:00)
[2016-08-07] MEDS: LOSARTAN POTASSIUM 50 MG TABLET. PO SCH (09:00)
[2016-08-07] MEDS: LIDOCAINE (700MG/PATCH) PATCH. TP SCH (09:00)
[2016-08-07] MEDS: ESCITALOPRAM 10 MG TABLET. PO SCH (09:00)
[2016-08-07] MEDS: HYDROCHLOROTHIAZIDE 25 MG TABLET PO SCH (09:00)
[2016-08-07] MEDS: lamoTRIgine 25 MG TABLET. PO SCH ×2 (09:00→21:10)
[2016-08-07] MEDS: OMEGA-3 FATTY ACIDS/FISH OIL 1,000 MG CAPSULE. PO SCH (09:00)
[2016-08-07] MEDS: METOLAZONE 2.5 MG TABLET PO SCH (09:00)
[2016-08-07] MEDS: LABETALOL HCL 200 MG TABLET PO SCH ×2 (09:00→21:10)
[2016-08-07] MEDS: ERYTHROMYCIN BASE 250 MG TABLET PO SCH ×2 (09:00→21:10)
[2016-08-07] MEDS: FUROSEMIDE 80 MG TABLET PO SCH ×3 (09:00→21:11)
[2016-08-07] MEDS ORDERED: IV NORMAL SALINE 1000ML BAG 1,000 ML IV PRN ×2 (09:19)
[2016-08-07] MEDS ORDERED: DIALYSIS PATIENT. MC PRN (09:30)
[2016-08-07] MEDS ORDERED: 0.9 % SODIUM CHLORIDE 10 ML DISP.SYRIN. IV PRN ×2 (09:30)
[2016-08-07] MEDS ORDERED: DIPHENHYDRAMINE 50 MG/ML VIAL IV PRN ×2 (09:30)
--- NOTE | 2016-08-07 10:44 | PDOC ---
PROGRESS NOTES Chief Complaint Chief Complaint 1. Bacterial infection of dialysis catheter, Gm pos Cocci 2. ESRD, HD 3. Obesity, BMI 43 4. Hypertension 5. Insomnia 6. DM, insulin 7. Anemia of ESRD History of Present Illness History of Present Illness Pt seen and evaluated while receiving dialysis. present and at bedside during. All questions and concerns addressed and answered. Pt states that she is "feeling a little better". Pt reported fever over night which then broke this AM. Vitals Vitals Vital Signs Date Time Temp Pulse Resp B/P Pulse Ox O2 Delivery O2 Flow Rate FiO2 08/07/16 08:33 98.2 89 22 97/60 94 Room Air 98.2 Physical Exam General: Alert, Oriented X3, Cooperative, No acute distress Heart: Regular rate, Normal S1, Normal S2, No murmurs Lungs: Clear Abdomen: Normal bowel sounds, Soft Extremities: No clubbing, No cyanosis, No edema, Normal pulses Skin: No rashes, Other (exudate from base of HD cath, end of tunnel area) Labs LABS Laboratory Tests Test 08/06/16 11:54 08/06/16 13:58 08/06/16 16:47 08/06/16 23:14 Glucose (Fingerstick) 126mg/dL (70-99) 44mg/dL (70-99) 181mg/dL (70-99) 184mg/dL (70-99) Test 08/07/16 07:54 Glucose (Fingerstick) 211mg/dL (70-99) Review of Systems Review of Systems Patient complaint of hunger Patient complaint of weakness Assessment and Plan Assessmemt and Plan Problems Medical Problems: (1) Fever Status: Acute Assessment: 1. Bacterial infection of dialysis catheter, Gm pos Cocci 2. ESRD, HD 3. Obesity, BMI 43 4. Hypertension 5. Insomnia 6. DM, insulin 7. Anemia of ESRD Plan: Continue to monitor the patient per floor protocol VS currently stable, continue to monitor Dialysis T, Th, Sa Daily labs Daily PTOT FILIBERTO RN Appreciate ID and Nephrology input and evaluation Continue IV Abx- Vanc Problems: Comment Review of Relevant I have reviewed the following items kathya (where applicable) has been applied. Labs Laboratory Tests Test 08/05/16 11:20 08/05/16 11:48 08/05/16 18:23 08/05/16 20:35 Urine Collection Type Unknown Urine Color Latosha Urine Clarity Turbid Urine pH 5.5 Urine Specific [place] >=1.030 Urine Protein >=300mg/dL (NEG-TRACE) Urine Glucose (UA) 500mg/dL (NEG) Urine Ketones (Stick) Tracemg/dL (NEG) Urine Blood Negative (NEG) Urine Nitrite Negative (NEG) Urine Bilirubin Moderate (NEG) Urine Urobilinogen Dipstick 1.0mg/dL (0.2 mg/dL) Urine Leukocyte Esterase Small (NEG) Urine RBC 0/HPF (0-2) Urine WBC 1-4/HPF (0-4) Urine Squamous Epithelial Cells Many/LPF Urine Renal Epithelial Cells Occ/LPF Urine Bacteria Few/HPF (0-FEW) Urine Yeast Present/HPF Glucose (Fingerstick) 133mg/dL (70-99) 223mg/dL (70-99) 436mg/dL (70-99) Test 08/06/16 04:35 08/06/16 07:36 08/06/16 11:54 08/06/16 13:58 White Blood Count 7.7x10^3/uL (4.0-11.0) Red Blood Count 2.80x10^6/uL (3.50-5.40) Hemoglobin 8.8g/dL (12.0-15.5) Hematocrit 25.5% (36.0-47.0) Mean Corpuscular Volume 91fL (79-100) Mean Corpuscular Hemoglobin 32pg (25-35) Mean Corpuscular Hemoglobin Concent 35g/dL (31-37) Red Cell Distribution Width 13.1% (11.5-14.5) Platelet Count 245x10^3/uL (140-400) Neutrophils (%) (Auto) 71% (31-73) Lymphocytes (%) (Auto) 22% (24-48) Monocytes (%) (Auto) 5% (0-9) Eosinophils (%) (Auto) 1% (0-3) Basophils (%) (Auto) 1% (0-3) Neutrophils # (Auto) 5.5x10^3uL (1.8-7.7) Lymphocytes # (Auto) 1.7x10^3/uL (1.0-4.8) Monocytes # (Auto) 0.4x10^3/uL (0.0-1.1) Eosinophils # (Auto) 0.1x10^3/uL (0.0-0.7) Basophils # (Auto) 0.0x10^3/uL (0.0-0.2) Prothrombin Time 12.6SEC (11.7-14.0) Prothromb Time International Ratio 1.0 (0.8-1.1) Sodium Level 137mmol/L (136-145) Potassium Level 4.8mmol/L (3.5-5.1) Chloride Level 99mmol/L (98-107) Carbon Dioxide Level 26mmol/L (21-32) Anion Gap 12 (6-14) Blood Urea Nitrogen 27mg/dL (7-20) Creatinine 3.4mg/dL (0.6-1.0) Estimated GFR (Cockcroft-Gault) 16.2 Glucose Level 104mg/dL (70-99) Hemoglobin A1c 6.5% (4.8-5.6) Calcium Level 8.7mg/dL (8.5-10.1) Random Vancomycin Level 27.3mcg/mL Glucose (Fingerstick) 137mg/dL (70-99) 126mg/dL (70-99) 44mg/dL (70-99) Test 08/06/16 16:47 08/06/16 23:14 08/07/16 07:54 Glucose (Fingerstick) 181mg/dL (70-99) 184mg/dL (70-99) 211mg/dL (70-99) Laboratory Tests Test 08/06/16 11:54 08/06/16 13:58 08/06/16 16:47 08/06/16 23:14 Glucose (Fingerstick) 126mg/dL (70-99) 44mg/dL (70-99) 181mg/dL (70-99) 184mg/dL (70-99) Test 08/07/16 07:54 Glucose (Fingerstick) 211mg/dL (70-99) Microbiology 08/05/16 Blood Culture - Preliminary, Resulted NO GROWTH AFTER 2 DAYS 08/06/16 Gram Stain - Final, Complete Medications Current Medications Ondansetron HCl (Zofran) 4 mg PRN Q8HRS PRN IV NAUSEA/VOMITING; Start 08/05/16 at 10:45; Stop 08/06/16 at 10:44; Status DC Acetaminophen (Tylenol) 650 mg PRN Q4HRS PRN PO FEVER Last administered on 11:56; Start 08/05/16 at 10:45; Stop 08/06/16 at 10:44; Status DC Vancomycin HCl 1 each 1 each PRN DAILY PRN MC SEE COMMENTS; Start 08/05/16 at 10 :45; Stop 08/05/16 at 16:16; Status DC Vancomycin HCl/ Sodium Chloride (Iv Sodium Chloride 0.9% 500ml Bag) 500 ml @ 250 mls/hr 1X ONCE IV Last administered on 08/05/16 10:56; Start 08/05/16 at 11 :00; Stop 08/05/16 at 12:59; Status DC Info (PHARMACY MONITORING -- do not chart) 1 each PRN DAILY PRN MC SEE COMMENTS ; Start 08/05/16 at 15:15 Heparin Sodium (Porcine) 5,000 unit Q8HRS SQ Last administered on 08/07/16 06: 31; Start 08/05/16 at 22:00 Vancomycin HCl (Vanco Per Pharmacy) 1 each PRN DAILY PRN MC SEE COMMENTS Last administered on 08/06/16 13:14; Start 08/05/16 at 16:15 Calcium Acetate (Phoslo) 1,334 mg TIDWMEALS PO Last administered on 08/06/16 17:30; Start 08/05/16 at 17:00 Cyclobenzaprine HCl (Flexeril) 10 mg DAILY PO ; Start 08/06/16 at 09:00; Stop at 09:45; Status DC Docusate Sodium (Colace) 100 mg DAILY PO Last administered on 08/06/16 08:35; Start 08/06/16 at 09:00 Furosemide (Lasix) 80 mg TID PO Last administered on 08/06/16 21:02; Start 08/05/16 at 21:00 Hydralazine HCl (Apresoline) 50 mg HS PO Last administered on 08/06/16 21:05; Start 08/05/16 at 21:00 Hydrochlorothiazide (Hydrodiuril) 25 mg DAILY PO Last administered on 08:38; Start 08/06/16 at 09:00 Labetalol HCl (Trandate) 100 mg BID PO Last administered on 08/06/16 21:06; Start 08/05/16 at 21:00 Lamotrigine (LaMICtal) 100 mg BID PO Last administered on 08/06/16 21:04; Start 08/05/16 at 21:00 Lidocaine (Lidoderm) 1 patch DAILY TP Last administered on 08/06/16 08:41; Start 08/06/16 at 09:00 Metoclopramide HCl (Reglan) 10 mg TIDBFRMEAL PO ; Start 08/05/16 at 16:30; Stop 08/06/16 at 13:00; Status DC Polyethylene Glycol (miraLAX PACKET) 17 gm PRN DAILY PRN PO CONSTIPATION 1ST CHOICE; Start 08/05/16 at 16:15 Non-Formulary Medication 1 puff PRN Q6HRS PRN INH SHORTNESS OF BREATH; Start at 16:15; Status UNV Aripiprazole (Abilify) 20 mg DAILY PO ; Start 08/06/16 at 09:00; Stop 08/06/16 at 09:45; Status DC Erythromycin (E-Mycin) 250 mg BID PO Last administered on 08/06/16 21:02; Start 08/05/16 at 21:00 Escitalopram Oxalate (Lexapro) 20 mg DAILY PO Last administered on 08/06/16 08 :36; Start 08/06/16 at 09:00 Insulin Detemir (Levemir) 25 units QHS SQ Last administered on 08/06/16 23:54 ; Start 08/05/16 at 21:00 Insulin Aspart (Novolog) 15 units TIDWMEALS SQ ; Start 08/05/16 at 17:00; Stop at 17:00; Status DC Metolazone (Zaroxolyn) 5 mg DAILY PO Last administered on 08/06/16 08:35; Start 08/06/16 at 09:00 Multivitamins/ Calcium (Thera M Plus) 1 tab DAILY PO Last administered on 08:38; Start 08/06/16 at 09:00 Non-Formulary Medication 1 tab DAILY PO ; Start 08/06/16 at 09:00; Stop at 07:12; Status DC Fish Oil (Fish Oil) 1,000 mg DAILY PO Last administered on 08/06/16 08:38; Start 08/06/16 at 09:00 Ondansetron HCl (Zofran Odt) 4 mg PRN Q8HRS PRN PO NAUSEA/VOMITING; Start at 16:30 Losartan Potassium (Cozaar) 100 mg DAILY PO Last administered on 08/06/16 08: 37; Start 08/06/16 at 09:00 Folic Acid/ Multivitamins/Vit B12 (Nephro-Robert) 1 tab DAILY PO Last administered on 08/06/16 08:38; Start 08/06/16 at 09:00 Albuterol Sulfate (Ventolin Neb Soln) 2.5 mg PRN Q6HRS PRN NEB SHORTNESS OF BREATH; Start 08/05/16 at 16:30 Insulin Aspart (Novolog) 20 units TIDWMEALS SQ Last administered on 08/06/16 17:38; Start 08/05/16 at 17:00 Oxycodone/ Acetaminophen (Percocet 5/325) 1 tab PRN Q4HRS PRN PO PAIN SEVERE Last administered on 08/06/16 21:02; Start 08/05/16 at 17:15 Vancomycin HCl 1 each 1X ONCE MC Last administered on 08/06/16 06:00; Start 08/06/16 at 06:00; Stop 08/06/16 at 06:01; Status DC Insulin Aspart (Novolog) 20 units 1X ONCE SQ Last administered on 08/05/16 21: 00; Start 08/05/16 at 21:00; Stop 08/05/16 at 21:04; Status DC Vancomycin HCl 1 each 1X ONCE MC ; Start 08/07/16 at 06:00; Stop 08/07/16 at 06 :00; Status DC Aripiprazole (Abilify) 20 mg HS PO Last administered on 08/06/16 21:02; Start 08/06/16 at 21:00 Cyclobenzaprine HCl (Flexeril) 10 mg PRN DAILY PRN PO MUSCLE SPASMS; Start 04/12 at 09:43 Darbepoetin Brendon (Aranesp) 100 mcg WEEKLYHS SQ Last administered on 08/06/16 22:09; Start 08/06/16 at 21:00 Heparin Sodium (Porcine) 10,000 unit STK-MED ONCE .ROUTE ; Start 08/06/16 at 12: 32; Stop 08/06/16 at 12:33; Status DC Lidocaine/ Epinephrine 20 ml 20 ml STK-MED ONCE .ROUTE ; Start 08/06/16 at 12:32 ; Stop 08/06/16 at 12:33; Status DC Heparin Sodium/ Sodium Chloride 500 ml @ As Directed STK-MED ONCE .ROUTE ; Start 08/06/16 at 12:32; Stop 08/06/16 at 12:33; Status DC Metoclopramide HCl (Reglan) 2.5 mg TIDBFRMEAL PO ; Start 08/06/16 at 16:30 Vancomycin HCl 1 each 1X ONCE MC ; Start 08/08/16 at 06:00; Stop 08/08/16 at 06 :01 Dextrose 25 gm STK-MED ONCE IV Last administered on 08/06/16 14:13; Start 04/12 at 14:10; Stop 08/06/16 at 14:11; Status DC Lidocaine/ Epinephrine (Xylocaine 1%-Epi 1:100,000) 3 ml 1X ONCE IJ Last administered on 08/06/16 14:43; Start 08/06/16 at 14:45; Stop 08/06/16 at 14:54 ; Status DC Heparin Sodium/ Sodium Chloride 50 unit 1X ONCE IV Last administered on 14:44; Start 08/06/16 at 14:45; Stop 08/06/16 at 14:54; Status DC Heparin Sodium (Porcine) 2,400 unit 1X ONCE INT CAT Last administered on 14:43; Start 08/06/16 at 14:45; Stop 08/06/16 at 14:54; Status DC Dextrose 12.5 gm PRN Q15MIN PRN IV SEE COMMENTS; Start 08/06/16 at 19:45 Heparin Sodium (Porcine) 2000 unit 2,000 unit 1X STAT IV Last administered on 08/07/16 09:41; Start 08/07/16 at 09:19; Stop 08/07/16 at 09:37; Status DC Sodium Chloride (Iv Sodium Chloride 0.9% 1000ml Bag) 1,000 ml @ 1,000 mls/hr Q1H PRN IV hypotension; Start 08/07/16 at 09:19; Stop 08/07/16 at 15:18 Diphenhydramine HCl (Benadryl) 25 mg 1X PRN PRN IV ITCHING; Start 08/07/16 at 09:30; Stop 08/08/16 at 09:29 Diphenhydramine HCl (Benadryl) 25 mg 1X PRN PRN IV ITCHING; Start 08/07/16 at 09:30; Stop 08/08/16 at 09:29 Sodium Chloride (Normal Saline Flush) 10 ml 1X PRN PRN IV AP catheter pack; Start 08/07/16 at 09:30; Stop 08/08/16 at 09:29 Sodium Chloride 10 ml 10 ml 1X PRN PRN IV SHOE LACER catheter pack; Start 08/07/16 at 09:30; Stop 08/08/16 at 09:29 Sodium Chloride (Iv Sodium Chloride 0.9% 1000ml Bag) 1,000 ml @ 400 mls/hr Q2H30M PRN IV PATENCY; Start 08/07/16 at 09:19; Stop 08/07/16 at 21:18 Info (PHARMACY MONITORING -- do not chart) 1 each PRN DAILY PRN MC SEE COMMENTS ; Start 08/07/16 at 09:30; Status UNV Active Scripts Active Miralax (Polyethylene Glycol 3350) 17 Gm Powd.pack 17 Gm PO PRN DAILY PRN Metoclopramide Hcl 10 Mg Tablet 10 Mg PO TIDBFRMEAL Reported Novolog (Insulin Aspart) 100 Unit/1 Ml Cartridge 20 Unit SQ TIDWMEALS Dionisio-Tab (Erythromycin Base) 250 Mg Tablet.dr 250 Mg PO BID Dialyvite 800 With Zinc (Vitamin B Comp W-C/Fa/Zinc) 0.8 Mg Tablet 0.8 Mg PO DAILY Escitalopram Oxalate 20 Mg Tablet 1 Tab PO DAILY Fish Oil ([place]-3 Fatty Acids) 300 Mg Capsule 300 Mg PO DAILY Colace (Docusate Sodium) 100 Mg Capsule 1 Cap PO DAILY Cyclobenzaprine Hcl 10 Mg Tablet 1 Tab PO DAILY Abilify (Aripiprazole) 20 Mg Tablet 20 Mg PO DAILY Lidoderm (Lidocaine) 700 Mg Adh..patch 1 Patch TP DAILY Percocet 5-325 Mg Tablet (Oxycodone/Acetaminophen) 1 Each Tablet 1 Tab PO PRN Q4 -6HRS PRN Metolazone 5 Mg Tablet 5 Mg PO DAILY Lamotrigine 100 Mg Tablet 1 Tab PO BID Valsartan 320 Mg Tablet 320 Mg PO DAILY Zofran (Ondansetron Hcl) 4 Mg Tablet 4 Mg PO TID PRN Essential Daily (Multivit With Calcium,Iron,Min) 1 Each Tablet 1 Each PO DAILY Lasix (Furosemide) 80 Mg Tablet 80 Mg PO TID Trinessa (Norgestimate-Ethinyl Estradiol) 1 Each Tablet 1 Tab PO DAILY Phoslo (Calcium Acetate) 667 Mg Capsule 1,334 Mg PO TIDWMEALS Proair Hfa Inhaler (Albuterol Sulfate) 8.5 Gm Hfa.aer.ad 1 Puff INH PRN Q6HRS PRN Hydralazine Hcl 50 Mg Tablet 1 Tab PO HS Tri-Sprintec (Norgestimate-Ethinyl Estradiol) 1 Each Tablet 1 Tab PO DAILY Hydrochlorothiazide Tablet (Hydrochlorothiazide) 25 Mg Tablet 1 Tab PO DAILY Labetalol Hcl 100 Mg Tablet 1 Tab PO BID Humalog Mix 75-25 Vial (Insulin Npl/Insulin Lispro) 100 Unit/1 Ml Vial 15 Unit SQ TIDAC Lantus Solostar (Insulin Glargine,Hum.rec.anlog) 100 Unit/1 Ml Insuln.pen 25 Unit SQ QHS Vitals/I & O Vital Sign - Last 24 Hours 08/06/16 08/06/16 08/06/16 08/06/16 11:00 15:00 16:20 19:00 Temp 97.5 98.4 100.9 97.5 98.4 100.9 Pulse 100 91 108 Resp 18 16 20 B/P 126/47 140/70 137/63 Pulse Ox 95 95 93 O2 Delivery Room Air Room Air Room Air Room Air 08/06/16 08/06/16 08/06/16 08/06/16 20:00 21:02 21:05 21:06 Pulse 108 108 Resp 20 B/P 137/63 137/63 O2 Delivery Room Air Room Air 08/06/16 08/06/16 08/07/16 08/07/16 22:02 23:00 03:00 08:33 Temp 100.1 98.2 98.2 100.1 98.2 98.2 Pulse 98 89 89 Resp 18 20 20 22 B/P 111/55 121/57 97/60 Pulse Ox 94 91 94 O2 Delivery Room Air Room Air Room Air Room Air Intake and Output 08/06/16 08/06/16 08/07/16 15:00 23:00 07:00 Intake Total 2400 ml Output Total 150 ml Balance 2250 ml JAZ RIOS III DO Aug 07, 2016 10:44
[2016-08-07 11:10] VITALS: BP 66/60
[2016-08-07] MEDS: OXYCODONE/APAP 5/325 TABLET. PO PRN ×3 (12:28→21:11)
--- NOTE | 2016-08-07 14:09 | PDOC ---
Infectious Disease Note Subjective Subjective Fever 100.1 last night, none so far today Dialysis earlier Feeling alright, just tired ROS ROS GEN: Denies chills, sweats CV: Denies chest pain RESP: Denies shortness of air, cough GI: Denies n/v/d Vital Sign Vital Signs Vital Signs Date Time Temp Pulse Resp B/P Pulse Ox O2 Delivery O2 Flow Rate FiO2 08/07/16 13:28 95 Room Air 08/07/16 12:28 12 08/07/16 11:10 98.2 58 66/60 98.2 Physical Exam PHYSICAL EXAM GENERAL: NAD LUNGS: Clear HEART: S1S2, no gallop, no murmur ABD: Soft, NT EXT: No edema, no cyanosis [employer]: Alert, oriented x 3, no focal neurologic deficit SKIN: No rash L-S temp HDC clean R-S wounds- previous HDC site LUE AV fistula site, wound Labs Lab Laboratory Tests Test 08/06/16 13:58 08/06/16 16:47 08/06/16 23:14 08/07/16 07:54 Glucose (Fingerstick) 44mg/dL (70-99) 181mg/dL (70-99) 184mg/dL (70-99) 211mg/dL (70-99) Test 08/07/16 13:06 Glucose (Fingerstick) 277mg/dL (70-99) Micro BLOOD CULTURE Preliminary NO GROWTH AFTER 2 DAYS Cath tip GRAM STAIN Final WBCS NONE SEEN RBCS MANY ORGANISMS NONE SEEN Neck GRAM STAIN Final WBCS OCCASIONAL RBCS FEW ORGANISMS NONE SEEN Objective Assessment Fever Staph infection - line. s/p HDC removal and temp replacement, 08/06. MSSA from 08/03 Tra. CKD on HD DM Contaminated Urine specimen Plan Plan of Care Cont Vanc F/u cults and labs copy of micro from Tra placed on chart D/w Attending Co-Sign The patient was seen and interviewed as well as examined at the bedside. The chart was reviewed. The case was discussed. Agree with the plan of care. change vanc to cefazolin MARIELY SUBRAMANIAN APRN Aug 07, 2016 14:09 FRACISCO MOTA MD Aug 07, 2016 15:25
--- NOTE | 2016-08-07 14:20 | PDOC ---
PROGRESS NOTES Subjective Subjective SEEN IN FOLLOW UP OF ESRD Objective Objective Vital Signs Date Time Temp Pulse Resp B/P Pulse Ox O2 Delivery O2 Flow Rate FiO2 08/07/16 13:28 95 Room Air 08/07/16 12:28 12 08/07/16 11:10 98.2 58 66/60 98.2 Intake and Output 08/07/16 07:00 Intake Total 2400 ml Output Total 150 ml Balance 2250 ml Intake Oral 2400 ml Output Urine Total 150 ml # Voids 6 Physical Exam Abdomen: Normal bowel sounds, Soft, No tenderness, No hepatosplenomegaly, No masses Heart: Regular rate, Normal S1, Normal S2, No murmurs, Gallops Extremities: No clubbing, No cyanosis, No edema, Normal pulses, No tenderness/ swelling General: Alert, Oriented X3, Cooperative, No acute distress Lungs: Clear to auscultation, Normal air movement Psych/Mental Status: Mental status NL, Mood NL Diagnosis RENAL FAILURE: ESRD Assessment Assessment Problems Medical Problems: (1) Fever Status: Acute Plan Plan of Care DIALYSIS TODAY AND TOLERATED WELL Comment Review of Relevant I have reviewed the following items kathya (where applicable) has been applied. Labs Laboratory Tests Test 08/05/16 18:23 08/05/16 20:35 08/06/16 04:35 08/06/16 07:36 Glucose (Fingerstick) 223mg/dL (70-99) 436mg/dL (70-99) 137mg/dL (70-99) White Blood Count 7.7x10^3/uL (4.0-11.0) Red Blood Count 2.80x10^6/uL (3.50-5.40) Hemoglobin 8.8g/dL (12.0-15.5) Hematocrit 25.5% (36.0-47.0) Mean Corpuscular Volume 91fL (79-100) Mean Corpuscular Hemoglobin 32pg (25-35) Mean Corpuscular Hemoglobin Concent 35g/dL (31-37) Red Cell Distribution Width 13.1% (11.5-14.5) Platelet Count 245x10^3/uL (140-400) Neutrophils (%) (Auto) 71% (31-73) Lymphocytes (%) (Auto) 22% (24-48) Monocytes (%) (Auto) 5% (0-9) Eosinophils (%) (Auto) 1% (0-3) Basophils (%) (Auto) 1% (0-3) Neutrophils # (Auto) 5.5x10^3uL (1.8-7.7) Lymphocytes # (Auto) 1.7x10^3/uL (1.0-4.8) Monocytes # (Auto) 0.4x10^3/uL (0.0-1.1) Eosinophils # (Auto) 0.1x10^3/uL (0.0-0.7) Basophils # (Auto) 0.0x10^3/uL (0.0-0.2) Prothrombin Time 12.6SEC (11.7-14.0) Prothromb Time International Ratio 1.0 (0.8-1.1) Sodium Level 137mmol/L (136-145) Potassium Level 4.8mmol/L (3.5-5.1) Chloride Level 99mmol/L (98-107) Carbon Dioxide Level 26mmol/L (21-32) Anion Gap 12 (6-14) Blood Urea Nitrogen 27mg/dL (7-20) Creatinine 3.4mg/dL (0.6-1.0) Estimated GFR (Cockcroft-Gault) 16.2 Glucose Level 104mg/dL (70-99) Hemoglobin A1c 6.5% (4.8-5.6) Calcium Level 8.7mg/dL (8.5-10.1) Random Vancomycin Level 27.3mcg/mL Test 08/06/16 11:54 08/06/16 13:58 08/06/16 16:47 08/06/16 23:14 Glucose (Fingerstick) 126mg/dL (70-99) 44mg/dL (70-99) 181mg/dL (70-99) 184mg/dL (70-99) Test 08/07/16 07:54 08/07/16 13:06 Glucose (Fingerstick) 211mg/dL (70-99) 277mg/dL (70-99) Laboratory Tests Test 08/06/16 16:47 08/06/16 23:14 08/07/16 07:54 08/07/16 13:06 Glucose (Fingerstick) 181mg/dL (70-99) 184mg/dL (70-99) 211mg/dL (70-99) 277mg/dL (70-99) Microbiology 08/05/16 Blood Culture - Preliminary, Resulted NO GROWTH AFTER 2 DAYS 08/06/16 Urine Culture - Preliminary, Resulted 08/06/16 Urine Culture Result 1 (PEGGY) - Preliminary, Resulted 08/06/16 Gram Stain - Final, Complete Medications Current Medications Ondansetron HCl (Zofran) 4 mg PRN Q8HRS PRN IV NAUSEA/VOMITING; Start 08/05/16 at 10:45; Stop 08/06/16 at 10:44; Status DC Acetaminophen (Tylenol) 650 mg PRN Q4HRS PRN PO FEVER Last administered on 11:56; Start 08/05/16 at 10:45; Stop 08/06/16 at 10:44; Status DC Vancomycin HCl 1 each 1 each PRN DAILY PRN MC SEE COMMENTS; Start 08/05/16 at 10 :45; Stop 08/05/16 at 16:16; Status DC Vancomycin HCl/ Sodium Chloride (Iv Sodium Chloride 0.9% 500ml Bag) 500 ml @ 250 mls/hr 1X ONCE IV Last administered on 08/05/16 10:56; Start 08/05/16 at 11 :00; Stop 08/05/16 at 12:59; Status DC Info (PHARMACY MONITORING -- do not chart) 1 each PRN DAILY PRN MC SEE COMMENTS ; Start 08/05/16 at 15:15 Heparin Sodium (Porcine) 5,000 unit Q8HRS SQ Last administered on 08/07/16 13: 14; Start 08/05/16 at 22:00 Vancomycin HCl (Vanco Per Pharmacy) 1 each PRN DAILY PRN MC SEE COMMENTS Last administered on 08/06/16 13:14; Start 08/05/16 at 16:15 Calcium Acetate (Phoslo) 1,334 mg TIDWMEALS PO Last administered on 08/07/16 13:08; Start 08/05/16 at 17:00 Cyclobenzaprine HCl (Flexeril) 10 mg DAILY PO ; Start 08/06/16 at 09:00; Stop at 09:45; Status DC Docusate Sodium (Colace) 100 mg DAILY PO Last administered on 08/06/16 08:35; Start 08/06/16 at 09:00 Furosemide (Lasix) 80 mg TID PO Last administered on 08/07/16 13:08; Start 08/05/16 at 21:00 Hydralazine HCl (Apresoline) 50 mg HS PO Last administered on 08/06/16 21:05; Start 08/05/16 at 21:00 Hydrochlorothiazide (Hydrodiuril) 25 mg DAILY PO Last administered on 08:38; Start 08/06/16 at 09:00 Labetalol HCl (Trandate) 100 mg BID PO Last administered on 08/06/16 21:06; Start 08/05/16 at 21:00 Lamotrigine (LaMICtal) 100 mg BID PO Last administered on 08/06/16 21:04; Start 08/05/16 at 21:00 Lidocaine (Lidoderm) 1 patch DAILY TP Last administered on 08/06/16 08:41; Start 08/06/16 at 09:00 Metoclopramide HCl (Reglan) 10 mg TIDBFRMEAL PO ; Start 08/05/16 at 16:30; Stop 08/06/16 at 13:00; Status DC Polyethylene Glycol (miraLAX PACKET) 17 gm PRN DAILY PRN PO CONSTIPATION 1ST CHOICE; Start 08/05/16 at 16:15 Non-Formulary Medication 1 puff PRN Q6HRS PRN INH SHORTNESS OF BREATH; Start at 16:15; Status UNV Aripiprazole (Abilify) 20 mg DAILY PO ; Start 08/06/16 at 09:00; Stop 08/06/16 at 09:45; Status DC Erythromycin (E-Mycin) 250 mg BID PO Last administered on 08/06/16 21:02; Start 08/05/16 at 21:00 Escitalopram Oxalate (Lexapro) 20 mg DAILY PO Last administered on 08/06/16 08 :36; Start 08/06/16 at 09:00 Insulin Detemir (Levemir) 25 units QHS SQ Last administered on 08/06/16 23:54 ; Start 08/05/16 at 21:00 Insulin Aspart (Novolog) 15 units TIDWMEALS SQ ; Start 08/05/16 at 17:00; Stop at 17:00; Status DC Metolazone (Zaroxolyn) 5 mg DAILY PO Last administered on 08/06/16 08:35; Start 08/06/16 at 09:00 Multivitamins/ Calcium (Thera M Plus) 1 tab DAILY PO Last administered on 08:38; Start 08/06/16 at 09:00 Non-Formulary Medication 1 tab DAILY PO ; Start 08/06/16 at 09:00; Stop at 07:12; Status DC Fish Oil (Fish Oil) 1,000 mg DAILY PO Last administered on 08/06/16 08:38; Start 08/06/16 at 09:00 Ondansetron HCl (Zofran Odt) 4 mg PRN Q8HRS PRN PO NAUSEA/VOMITING; Start at 16:30 Losartan Potassium (Cozaar) 100 mg DAILY PO Last administered on 08/06/16 08: 37; Start 08/06/16 at 09:00 Folic Acid/ Multivitamins/Vit B12 (Nephro-Robert) 1 tab DAILY PO Last administered on 08/06/16 08:38; Start 08/06/16 at 09:00 Albuterol Sulfate (Ventolin Neb Soln) 2.5 mg PRN Q6HRS PRN NEB SHORTNESS OF BREATH; Start 08/05/16 at 16:30 Insulin Aspart (Novolog) 20 units TIDWMEALS SQ Last administered on 08/07/16 13:15; Start 08/05/16 at 17:00 Oxycodone/ Acetaminophen (Percocet 5/325) 1 tab PRN Q4HRS PRN PO PAIN SEVERE Last administered on 08/07/16 12:28; Start 08/05/16 at 17:15 Vancomycin HCl 1 each 1X ONCE MC Last administered on 08/06/16 06:00; Start 08/06/16 at 06:00; Stop 08/06/16 at 06:01; Status DC Insulin Aspart (Novolog) 20 units 1X ONCE SQ Last administered on 08/05/16 21: 00; Start 08/05/16 at 21:00; Stop 08/05/16 at 21:04; Status DC Vancomycin HCl 1 each 1X ONCE MC ; Start 08/07/16 at 06:00; Stop 08/07/16 at 06 :00; Status DC Aripiprazole (Abilify) 20 mg HS PO Last administered on 08/06/16 21:02; Start 08/06/16 at 21:00 Cyclobenzaprine HCl (Flexeril) 10 mg PRN DAILY PRN PO MUSCLE SPASMS; Start 04/12 at 09:43 Darbepoetin Brendon (Aranesp) 100 mcg WEEKLYHS SQ Last administered on 08/06/16 22:09; Start 08/06/16 at 21:00 Heparin Sodium (Porcine) 10,000 unit STK-MED ONCE .ROUTE ; Start 08/06/16 at 12: 32; Stop 08/06/16 at 12:33; Status DC Lidocaine/ Epinephrine 20 ml 20 ml STK-MED ONCE .ROUTE ; Start 08/06/16 at 12:32 ; Stop 08/06/16 at 12:33; Status DC Heparin Sodium/ Sodium Chloride 500 ml @ As Directed STK-MED ONCE .ROUTE ; Start 08/06/16 at 12:32; Stop 08/06/16 at 12:33; Status DC Metoclopramide HCl (Reglan) 2.5 mg TIDBFRMEAL PO ; Start 08/06/16 at 16:30 Vancomycin HCl 1 each 1X ONCE MC ; Start 08/08/16 at 06:00; Stop 08/08/16 at 06 :01 Dextrose 25 gm STK-MED ONCE IV Last administered on 08/06/16 14:13; Start 04/12 at 14:10; Stop 08/06/16 at 14:11; Status DC Lidocaine/ Epinephrine (Xylocaine 1%-Epi 1:100,000) 3 ml 1X ONCE IJ Last administered on 08/06/16 14:43; Start 08/06/16 at 14:45; Stop 08/06/16 at 14:54 ; Status DC Heparin Sodium/ Sodium Chloride 50 unit 1X ONCE IV Last administered on 14:44; Start 08/06/16 at 14:45; Stop 08/06/16 at 14:54; Status DC Heparin Sodium (Porcine) 2,400 unit 1X ONCE INT CAT Last administered on 14:43; Start 08/06/16 at 14:45; Stop 08/06/16 at 14:54; Status DC Dextrose 12.5 gm PRN Q15MIN PRN IV SEE COMMENTS; Start 08/06/16 at 19:45 Heparin Sodium (Porcine) 2000 unit 2,000 unit 1X STAT IV Last administered on 08/07/16t 09:41; Start 08/07/16 at 09:19; Stop 08/07/16 at 09:37; Status DC Sodium Chloride (Iv Sodium Chloride 0.9% 1000ml Bag) 1,000 ml @ 1,000 mls/hr Q1H PRN IV hypotension; Start 08/07/16 at 09:19; Stop 08/07/16 at 15:18 Diphenhydramine HCl (Benadryl) 25 mg 1X PRN PRN IV ITCHING; Start 08/07/16 at 09:30; Stop 08/08/16 at 09:29 Diphenhydramine HCl (Benadryl) 25 mg 1X PRN PRN IV ITCHING; Start 08/07/16 at 09:30; Stop 08/08/16 at 09:29 Sodium Chloride (Normal Saline Flush) 10 ml 1X PRN PRN IV AP catheter pack; Start 08/07/16 at 09:30; Stop 08/08/16 at 09:29 Sodium Chloride 10 ml 10 ml 1X PRN PRN IV 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; Start 08/07/16 at 09:30; Stop 08/08/16 at 09:29 Sodium Chloride (Iv Sodium Chloride 0.9% 1000ml Bag) 1,000 ml @ 400 mls/hr Q2H30M PRN IV PATENCY; Start 08/07/16 at 09:19; Stop 08/07/16 at 21:18 Info (PHARMACY MONITORING -- do not chart) 1 each PRN DAILY PRN MC SEE COMMENTS ; Start 08/07/16 at 09:30; Status UNV Active Scripts Active Miralax (Polyethylene Glycol 3350) 17 Gm Powd.pack 17 Gm PO PRN DAILY PRN Metoclopramide Hcl 10 Mg Tablet 10 Mg PO TIDBFRMEAL Reported Novolog (Insulin Aspart) 100 Unit/1 Ml Cartridge 20 Unit SQ TIDWMEALS Dionisio-Tab (Erythromycin Base) 250 Mg Tablet.dr 250 Mg PO BID Dialyvite 800 With Zinc (Vitamin B Comp W-C/Fa/Zinc) 0.8 Mg Tablet 0.8 Mg PO DAILY Escitalopram Oxalate 20 Mg Tablet 1 Tab PO DAILY Fish Oil ([place]-3 Fatty Acids) 300 Mg Capsule 300 Mg PO DAILY Colace (Docusate Sodium) 100 Mg Capsule 1 Cap PO DAILY Cyclobenzaprine Hcl 10 Mg Tablet 1 Tab PO DAILY Abilify (Aripiprazole) 20 Mg Tablet 20 Mg PO DAILY Lidoderm (Lidocaine) 700 Mg Adh..patch 1 Patch TP DAILY Percocet 5-325 Mg Tablet (Oxycodone/Acetaminophen) 1 Each Tablet 1 Tab PO PRN Q4 -6HRS PRN Metolazone 5 Mg Tablet 5 Mg PO DAILY Lamotrigine 100 Mg Tablet 1 Tab PO BID Valsartan 320 Mg Tablet 320 Mg PO DAILY Zofran (Ondansetron Hcl) 4 Mg Tablet 4 Mg PO TID PRN Essential Daily (Multivit With Calcium,Iron,Min) 1 Each Tablet 1 Each PO DAILY Lasix (Furosemide) 80 Mg Tablet 80 Mg PO TID Trinessa (Norgestimate-Ethinyl Estradiol) 1 Each Tablet 1 Tab PO DAILY Phoslo (Calcium Acetate) 667 Mg Capsule 1,334 Mg PO TIDWMEALS Proair Hfa Inhaler (Albuterol Sulfate) 8.5 Gm Hfa.aer.ad 1 Puff INH PRN Q6HRS PRN Hydralazine Hcl 50 Mg Tablet 1 Tab PO HS Tri-Sprintec (Norgestimate-Ethinyl Estradiol) 1 Each Tablet 1 Tab PO DAILY Hydrochlorothiazide Tablet (Hydrochlorothiazide) 25 Mg Tablet 1 Tab PO DAILY Labetalol Hcl 100 Mg Tablet 1 Tab PO BID Humalog Mix 75-25 Vial (Insulin Npl/Insulin Lispro) 100 Unit/1 Ml Vial 15 Unit SQ TIDAC Lantus Solostar (Insulin Glargine,Hum.rec.anlog) 100 Unit/1 Ml Insuln.pen 25 Unit SQ QHS Vitals/I & O Vital Sign - Last 24 Hours 08/06/16 08/06/16 08/06/16 08/06/16 15:00 16:20 19:00 20:00 Temp 98.4 100.9 98.4 100.9 Pulse 91 108 Resp 16 20 B/P 140/70 137/63 Pulse Ox 95 93 O2 Delivery Room Air Room Air Room Air Room Air 08/06/16 08/06/16 08/06/16 08/06/16 21:02 21:05 21:06 22:02 Pulse 108 108 Resp 18 B/P 137/63 137/63 O2 Delivery Room Air 08/06/16 08/07/16 08/07/16 08/07/16 23:00 03:00 08:33 11:10 Temp 100.1 98.2 98.2 98.2 100.1 98.2 98.2 98.2 Pulse 98 89 89 58 Resp B/P 111/55 121/57 97/60 66/60 Pulse Ox 94 91 94 95 O2 Delivery Room Air Room Air Room Air Room Air 08/07/16 08/07/16 12:28 13:28 Resp 12 Pulse Ox 95 O2 Delivery Room Air Room Air Intake and Output 08/06/16 08/06/16 08/07/16 15:00 23:00 07:00 Intake Total 2400 ml Output Total 150 ml Balance 2250 ml IZAIAH HOANG MD Aug 07, 2016 14:20
[2016-08-07] MEDS: CYCLOBENZAPRINE 10 MG TABLET. PO PRN (14:46)
[2016-08-07 15:00] VITALS: BP 129/57
[2016-08-07] MEDS: CEFAZOLIN SODIUM 1 GM in IV NORMAL SALINE 50ML 50 ML IV SCH (17:06)
[2016-08-07] MEDS: ACETAMINOPHEN 325 MG TABLET. PO PRN (17:38)
--- NOTE | 2016-08-07 17:43 | CONS ---
DATE OF CONSULTATION: 08/06/2016 LOCATION: The patient's room is 569. REQUESTING PHYSICIAN: Dr. Rodriguez REASON FOR CONSULTATION: Staph on dialysis port, culture from [facility]. HISTORY OF PRESENT ILLNESS: The patient is a 26-year-old female with history of diabetes, chronic kidney disease on hemodialysis and obesity. She states about 10 days ago, she began to have some drainage from her right hemodialysis catheter. Six days ago, apparently cultures were obtained which was on Tuesday; however, apparently they have been lost. This past Tuesday which was 3 days ago, she had more cultures obtained and had given a dose of vancomycin. Despite the vancomycin, she began to run fevers as high as 102. She has had decreased oral intake, had mild headache. No nausea, vomiting. No diarrhea, no constipation. She does make some urine and has no problems with joint swellings. She presented to [facility] on the . She had a white count of 8.6 with 82% segs. Blood cultures have been ordered and so far negative. Chest x-ray did not show any acute problem. She is now scheduled to undergo line removal. PAST MEDICAL HISTORY: Positive for chronic kidney disease on hemodialysis, anxiety, depression, bipolar, diabetes, iron deficiency anemia. PAST SURGICAL HISTORY: Positive for left upper extremity fistula placement as well as hemodialysis catheter placements and cholecystectomy. REVIEW OF SYSTEMS: Otherwise negative except for mentioned above. ALLERGIES: Listed as lurasidone. SOCIAL HISTORY: She is , is a previous smoker. FAMILY HISTORY: Positive for diabetes. CURRENT MEDICATIONS: Include IV vancomycin. She is on Abilify, Flexeril, Colace, erythromycin, Lexapro, hydralazine, NovoLog, Levemir, Reglan, Zaroxolyn. Other meds are available, have been reviewed in the chart. PHYSICAL EXAMINATION: VITAL SIGNS: Temperature: T-max has been 100.3, currently at 97.5, pulse 100, respirations 18, blood pressure 126/57, satting 95% on room air. CONSTITUTIONAL: She is sitting in a bed, in no acute distress. HEENT: Pupils are equal and reactive. She has normal conjunctivae. Oral cavity, oropharynx is clear without petechia. NECK: Supple, no JVD. She has a right hemodialysis catheter. There is some drainage about the neck. The insertion site appears to be clean. She has left upper extremity fistula. The wound is open, but is granulating, appears to be clean, no signs of infection. LUNGS: Clear to auscultation. HEART: S1, S2, without murmur. ABDOMEN: Obese, soft, nontender with positive bowel sounds. EXTREMITIES: Without clubbing, cyanosis or gross edema. SKIN: Warm to touch without signs of rash. NEUROLOGIC: She is nonfocal and appropriate. Affect is appropriate. LABORATORY VALUES: White count 7.7, hemoglobin 8.8, platelets of 245, neutrophils are 71, down from 82, lymphs are 22. Creatinine was 3.4, glucose of 104, did have a fingerstick as high as 436. Normal liver function study tests. Urinalysis with some mild yeast, occasional epithelial, minimal squamous cells, appears to be contaminated. Influenza screen was negative. Radiology reviewed in the history of present illness. IMPRESSION: 1. Fever. 2. Staph infection. 3. Chronic kidney disease, on hemodialysis. 4. Diabetes. 5. Contaminated urine specimen. RECOMMENDATIONS: At this time, we will continue the vancomycin. Follow up on labs and cultures. Catheters to be removed. This was discussed with her and also discussed with Dr. Ayo Lassiter and Dr. Jocelyn Rodriguez. Thank you for allowing me to participate in this patient's care. If you have any questions, please do not hesitate to contact me. SHARON MUELLER MD DR: KRISTIN/raza JOB#: [id number] / [id number]
[2016-08-07 19:00] VITALS: BP 128/52
[2016-08-07] MEDS: HYDRALAZINE 50 MG TABLET PO SCH (21:10)
[2016-08-07] MEDS: ARIPIPRAZOLE 5 MG TABLET. PO SCH (21:11)
[2016-08-07] MEDS: INSULIN DETEMIR 300 UNITS/3 ML INSULN.PEN. SQ SCH (21:21)
[2016-08-07 23:00] VITALS: BP 125/49
[2016-08-08] MEDS: ACETAMINOPHEN 325 MG TABLET. PO PRN ×3 (00:01→18:21)
[2016-08-08] MEDS: OXYCODONE/APAP 5/325 TABLET. PO PRN ×6 (01:17→21:04)
[2016-08-08 03:00] VITALS: BP 130/61
[2016-08-08 05:40] LABS: BASO % 0 % (0-3); EOS % 1 % (0-3); HEMATOCRIT 22.7 % (36.0-47.0); HEMOGLOBIN 7.5 g/dL (12.0-15.5); LYMPH # 1.9 x10^3/uL (1.0-4.8); LYMPH % 16 % (24-48); MEAN CORPUSCULAR HEMOGLOBIN 31 pg (25-35); MEAN CORPUSCULAR HGB CONC 33 g/dL (31-37); MEAN CORPUSCULAR VOLUME 92 fL (79-100); MONO % 6 % (0-9); NEUT % 78 % (31-73); PLATELET COUNT 215 x10^3/uL (140-400); RED BLOOD COUNT 2.46 x10^6/uL (3.50-5.40); RED CELL DISTRIBUTION WIDTH 13.3 % (11.5-14.5); WHITE BLOOD COUNT 12.3 x10^3/uL (4.0-11.0)
[2016-08-08 06:05] LABS: CALCIUM 8.1 mg/dL (8.5-10.1); CREATININE 4.8 mg/dL (0.6-1.0); GFR 10.9
[2016-08-08 06:09] LABS: POTASSIUM 5.2 mmol/L (3.5-5.1)
[2016-08-08] MEDS: HEPARIN PF for SUB-Q USE 5,000 UNIT/0.5 ML VIAL. SQ SCH ×3 (06:25→21:00)
[2016-08-08 07:00] VITALS: BP 130/70
[2016-08-08] MEDS: OMEGA-3 FATTY ACIDS/FISH OIL 1,000 MG CAPSULE. PO SCH (08:17)
[2016-08-08] MEDS: FOLIC/VIT B COMP W-C (RENAL) TABLET. PO SCH (08:17)
[2016-08-08] MEDS: LIDOCAINE (700MG/PATCH) PATCH. TP SCH (08:17)
[2016-08-08] MEDS: CALCIUM ACETATE 667 MG CAPSULE PO SCH ×3 (08:17→17:04)
[2016-08-08] MEDS: METOLAZONE 2.5 MG TABLET PO SCH (08:18)
[2016-08-08] MEDS: METOCLOPRAMIDE 5 MG TABLET PO SCH ×3 (08:19→13:34)
[2016-08-08] MEDS: lamoTRIgine 25 MG TABLET. PO SCH ×2 (08:19→20:51)
[2016-08-08] MEDS: ESCITALOPRAM 10 MG TABLET. PO SCH (08:20)
[2016-08-08] MEDS: MULTIVITAMIN with MINERAL TABLET. PO SCH (08:20)
[2016-08-08] MEDS: FUROSEMIDE 80 MG TABLET PO SCH ×3 (08:20→20:54)
[2016-08-08] MEDS: DOCUSATE SODIUM 100 MG CAPSULE PO SCH (08:21)
[2016-08-08] MEDS: HYDROCHLOROTHIAZIDE 25 MG TABLET PO SCH (08:21)
[2016-08-08] MEDS: LABETALOL HCL 200 MG TABLET PO SCH ×2 (08:22→20:53)
[2016-08-08] MEDS: LOSARTAN POTASSIUM 50 MG TABLET. PO SCH (08:23)
[2016-08-08] MEDS: ERYTHROMYCIN BASE 250 MG TABLET PO SCH ×2 (08:23→20:54)
[2016-08-08] MEDS: CEFAZOLIN SODIUM 1 GM in IV NORMAL SALINE 50ML 50 ML IV SCH (08:24)
[2016-08-08] MEDS: INSULIN ASPART 300 UNITS/3 ML INSULN.PEN SQ SCH ×3 (08:34→17:13)
[2016-08-08 11:00] VITALS: BP 99/44
--- NOTE | 2016-08-08 12:10 | PDOC ---
Infectious Disease Note Subjective Subjective Fever 102.7 last night Dialysis earlier Feeling alright, just tired ROS ROS GEN: Denies fevers, chills, sweats HEENT: Denies blurred vision, sore throat CV: Denies chest pain RESP: Denies shortness of air, cough GI: Denies n/v/d NEURO: Denies confusion, dizziness MSK: Denies weakness, joint pain/swelling Vital Sign Vital Signs Vital Signs Date Time Temp Pulse Resp B/P Pulse Ox O2 Delivery O2 Flow Rate FiO2 08/08/16 11:00 98.9 98 20 99/44 93 Room Air 98.9 Physical Exam PHYSICAL EXAM GENERAL: Tired appearance, NAD HENT: OC clear LUNGS: Clear HEART: S1S2, no gallop, no murmur ABD: Soft, NT EXT: No edema, no cyanosis 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, 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 3, no focal neurologic deficit SKIN: No rash L-S temp HDC clean R-S wounds- previous HDC site, mini al drainage, no redness LUE AV fistula site, wound clean Labs Lab Laboratory Tests Test 08/07/16 13:06 08/07/16 16:23 08/07/16 20:44 08/08/16 05:00 Glucose (Fingerstick) 277mg/dL (70-99) 154mg/dL (70-99) 124mg/dL (70-99) White Blood Count 12.3x10^3/uL (4.0-11.0) Red Blood Count 2.46x10^6/uL (3.50-5.40) Hemoglobin 7.5g/dL (12.0-15.5) Hematocrit 22.7% (36.0-47.0) Mean Corpuscular Volume 92fL (79-100) Mean Corpuscular Hemoglobin 31pg (25-35) Mean Corpuscular Hemoglobin Concent 33g/dL (31-37) Red Cell Distribution Width 13.3% (11.5-14.5) Platelet Count 215x10^3/uL (140-400) Neutrophils (%) (Auto) 78% (31-73) Lymphocytes (%) (Auto) 16% (24-48) Monocytes (%) (Auto) 6% (0-9) Eosinophils (%) (Auto) 1% (0-3) Basophils (%) (Auto) 0% (0-3) Neutrophils # (Auto) 9.5x10^3uL (1.8-7.7) Lymphocytes # (Auto) 1.9x10^3/uL (1.0-4.8) Monocytes # (Auto) 0.7x10^3/uL (0.0-1.1) Eosinophils # (Auto) 0.1x10^3/uL (0.0-0.7) Basophils # (Auto) 0.0x10^3/uL (0.0-0.2) Sodium Level 129mmol/L (136-145) Potassium Level 5.2mmol/L (3.5-5.1) Chloride Level 95mmol/L (98-107) Carbon Dioxide Level 23mmol/L (21-32) Anion Gap 11 (6-14) Blood Urea Nitrogen 36mg/dL (7-20) Creatinine 4.8mg/dL (0.6-1.0) Estimated GFR (Cockcroft-Gault) 10.9 Glucose Level 202mg/dL (70-99) Calcium Level 8.1mg/dL (8.5-10.1) Test 08/08/16 07:29 08/08/16 10:29 Glucose (Fingerstick) 160mg/dL (70-99) 150mg/dL (70-99) Micro BLOOD CULTURE Preliminary NO GROWTH AFTER 2 DAYS Cath tip GRAM STAIN Final WBCS NONE SEEN RBCS MANY ORGANISMS NONE SEEN Neck GRAM STAIN Final WBCS OCCASIONAL RBCS FEW ORGANISMS NONE SEEN Objective Assessment Fever Leukocytosis Staph infection - line. s/p HDC removal and temp replacement, 08/06. MSSA from 08/03 Tra. CKD on HD DM Contaminated Urine specimen Plan Plan of Care Cont Cefazolin Repeat BC F/u cults and labs copy of micro from [facility] on chart Attending Co-Sign The patient was seen and interviewed as well as examined at the bedside. The chart was reviewed. The case was discussed. Agree with the plan of care. MARIELY SUBRAMANIAN APRN Aug 08, 2016 12:10 FRACISCO MOTA MD Aug 08, 2016 13:40
--- NOTE | 2016-08-08 14:24 | PDOC ---
PROGRESS NOTES Chief Complaint Chief Complaint 1. Bacterial infection of dialysis catheter, Gm pos Cocci 2. ESRD, HD 3. Obesity, BMI 43 4. Hypertension 5. Insomnia 6. DM, insulin 7. Anemia of ESRD History of Present Illness History of Present Illness Pt states stated that she had a fever yesterday evening and early this AM. Does feel more tired today than she did yesterday. Family at pts bedside today during evaluation had no concerns or questions at this time. Vitals Vitals Vital Signs Date Time Temp Pulse Resp B/P Pulse Ox O2 Delivery O2 Flow Rate FiO2 08/08/16 13:32 93 Room Air 08/08/16 11:00 98.9 98 20 99/44 98.9 Physical Exam General: Alert, Oriented X3, Cooperative, No acute distress Heart: Regular rate, No murmurs, Other (No rubs or Gallops) Lungs: Clear, Other (no wheezes) Abdomen: Normal bowel sounds, Soft, No tenderness Extremities: No clubbing, No edema, Normal pulses, No tenderness/swelling Skin: No rashes, No breakdown, Other (exudate from base of HD cath, end of tunnel area) Labs LABS Laboratory Tests Test 08/07/16 16:23 08/07/16 20:44 08/08/16 05:00 08/08/16 07:29 Glucose (Fingerstick) 154mg/dL (70-99) 124mg/dL (70-99) 160mg/dL (70-99) White Blood Count 12.3x10^3/uL (4.0-11.0) Red Blood Count 2.46x10^6/uL (3.50-5.40) Hemoglobin 7.5g/dL (12.0-15.5) Hematocrit 22.7% (36.0-47.0) Mean Corpuscular Volume 92fL (79-100) Mean Corpuscular Hemoglobin 31pg (25-35) Mean Corpuscular Hemoglobin Concent 33g/dL (31-37) Red Cell Distribution Width 13.3% (11.5-14.5) Platelet Count 215x10^3/uL (140-400) Neutrophils (%) (Auto) 78% (31-73) Lymphocytes (%) (Auto) 16% (24-48) Monocytes (%) (Auto) 6% (0-9) Eosinophils (%) (Auto) 1% (0-3) Basophils (%) (Auto) 0% (0-3) Neutrophils # (Auto) 9.5x10^3uL (1.8-7.7) Lymphocytes # (Auto) 1.9x10^3/uL (1.0-4.8) Monocytes # (Auto) 0.7x10^3/uL (0.0-1.1) Eosinophils # (Auto) 0.1x10^3/uL (0.0-0.7) Basophils # (Auto) 0.0x10^3/uL (0.0-0.2) Sodium Level 129mmol/L (136-145) Potassium Level 5.2mmol/L (3.5-5.1) Chloride Level 95mmol/L (98-107) Carbon Dioxide Level 23mmol/L (21-32) Anion Gap 11 (6-14) Blood Urea Nitrogen 36mg/dL (7-20) Creatinine 4.8mg/dL (0.6-1.0) Estimated GFR (Cockcroft-Gault) 10.9 Glucose Level 202mg/dL (70-99) Calcium Level 8.1mg/dL (8.5-10.1) Test 08/08/16 10:29 Glucose (Fingerstick) 150mg/dL (70-99) Review of Systems Review of Systems Complaining of Fever Complaining of Fatigue All other ROS negative Assessment and Plan Assessmemt and Plan Problems Medical Problems: (1) Fever Status: Acute 1. Bacterial infection of dialysis catheter, Gm pos Cocci 2. ESRD, HD 3. Obesity, BMI 43 4. Hypertension 5. Insomnia 6. DM, insulin 7. Anemia of ESRD Plan: -Continue to monitor the patient per floor protocol -ID Consulted -Continuing IV Abx- Cefazolin - Vanc Held - Repeat Blood Cxs today -VS currently stable, continue to monitor -Nephro on case - Will continue with regular Dialysis T, , - Daily labs planned for the AM - Will continue Daily PTOT - FILIBERTO RN- Fever this AM; Was given Tylenol; no new issues since - Continue regular home medications - Appreciate ID and Nephrology input and evaluation Problems: Comment Review of Relevant I have reviewed the following items kathya (where applicable) has been applied. Labs Laboratory Tests Test 08/06/16 16:47 08/06/16 23:14 08/07/16 07:54 08/07/16 13:06 Glucose (Fingerstick) 181mg/dL (70-99) 184mg/dL (70-99) 211mg/dL (70-99) 277mg/dL (70-99) Test 08/07/16 16:23 08/07/16 20:44 08/08/16 05:00 08/08/16 07:29 Glucose (Fingerstick) 154mg/dL (70-99) 124mg/dL (70-99) 160mg/dL (70-99) White Blood Count 12.3x10^3/uL (4.0-11.0) Red Blood Count 2.46x10^6/uL (3.50-5.40) Hemoglobin 7.5g/dL (12.0-15.5) Hematocrit 22.7% (36.0-47.0) Mean Corpuscular Volume 92fL (79-100) Mean Corpuscular Hemoglobin 31pg (25-35) Mean Corpuscular Hemoglobin Concent 33g/dL (31-37) Red Cell Distribution Width 13.3% (11.5-14.5) Platelet Count 215x10^3/uL (140-400) Neutrophils (%) (Auto) 78% (31-73) Lymphocytes (%) (Auto) 16% (24-48) Monocytes (%) (Auto) 6% (0-9) Eosinophils (%) (Auto) 1% (0-3) Basophils (%) (Auto) 0% (0-3) Neutrophils # (Auto) 9.5x10^3uL (1.8-7.7) Lymphocytes # (Auto) 1.9x10^3/uL (1.0-4.8) Monocytes # (Auto) 0.7x10^3/uL (0.0-1.1) Eosinophils # (Auto) 0.1x10^3/uL (0.0-0.7) Basophils # (Auto) 0.0x10^3/uL (0.0-0.2) Sodium Level 129mmol/L (136-145) Potassium Level 5.2mmol/L (3.5-5.1) Chloride Level 95mmol/L (98-107) Carbon Dioxide Level 23mmol/L (21-32) Anion Gap 11 (6-14) Blood Urea Nitrogen 36mg/dL (7-20) Creatinine 4.8mg/dL (0.6-1.0) Estimated GFR (Cockcroft-Gault) 10.9 Glucose Level 202mg/dL (70-99) Calcium Level 8.1mg/dL (8.5-10.1) Test 08/08/16 10:29 Glucose (Fingerstick) 150mg/dL (70-99) Laboratory Tests Test 08/07/16 16:23 08/07/16 20:44 08/08/16 05:00 08/08/16 07:29 Glucose (Fingerstick) 154mg/dL (70-99) 124mg/dL (70-99) 160mg/dL (70-99) White Blood Count 12.3x10^3/uL (4.0-11.0) Red Blood Count 2.46x10^6/uL (3.50-5.40) Hemoglobin 7.5g/dL (12.0-15.5) Hematocrit 22.7% (36.0-47.0) Mean Corpuscular Volume 92fL (79-100) Mean Corpuscular Hemoglobin 31pg (25-35) Mean Corpuscular Hemoglobin Concent 33g/dL (31-37) Red Cell Distribution Width 13.3% (11.5-14.5) Platelet Count 215x10^3/uL (140-400) Neutrophils (%) (Auto) 78% (31-73) Lymphocytes (%) (Auto) 16% (24-48) Monocytes (%) (Auto) 6% (0-9) Eosinophils (%) (Auto) 1% (0-3) Basophils (%) (Auto) 0% (0-3) Neutrophils # (Auto) 9.5x10^3uL (1.8-7.7) Lymphocytes # (Auto) 1.9x10^3/uL (1.0-4.8) Monocytes # (Auto) 0.7x10^3/uL (0.0-1.1) Eosinophils # (Auto) 0.1x10^3/uL (0.0-0.7) Basophils # (Auto) 0.0x10^3/uL (0.0-0.2) Sodium Level 129mmol/L (136-145) Potassium Level 5.2mmol/L (3.5-5.1) Chloride Level 95mmol/L (98-107) Carbon Dioxide Level 23mmol/L (21-32) Anion Gap 11 (6-14) Blood Urea Nitrogen 36mg/dL (7-20) Creatinine 4.8mg/dL (0.6-1.0) Estimated GFR (Cockcroft-Gault) 10.9 Glucose Level 202mg/dL (70-99) Calcium Level 8.1mg/dL (8.5-10.1) Test 08/08/16 10:29 Glucose (Fingerstick) 150mg/dL (70-99) Microbiology 08/05/16 Blood Culture - Preliminary, Resulted NO GROWTH AFTER 3 DAYS 08/06/16 Urine Culture - Preliminary, Resulted 08/06/16 Urine Culture Result 1 (PEGGY) - Preliminary, Resulted 08/06/16 Gram Stain - Final, Complete Medications Current Medications Ondansetron HCl (Zofran) 4 mg PRN Q8HRS PRN IV NAUSEA/VOMITING; Start 08/05/16 at 10:45; Stop 08/06/16 at 10:44; Status DC Acetaminophen (Tylenol) 650 mg PRN Q4HRS PRN PO FEVER Last administered on 11:56; Start 08/05/16 at 10:45; Stop 08/06/16 at 10:44; Status DC Vancomycin HCl 1 each 1 each PRN DAILY PRN MC SEE COMMENTS; Start 08/05/16 at 10 :45; Stop 08/05/16 at 16:16; Status DC Vancomycin HCl/ Sodium Chloride (Iv Sodium Chloride 0.9% 500ml Bag) 500 ml @ 250 mls/hr 1X ONCE IV Last administered on 08/05/16 10:56; Start 08/05/16 at 11 :00; Stop 08/05/16 at 12:59; Status DC Info (PHARMACY MONITORING -- do not chart) 1 each PRN DAILY PRN MC SEE COMMENTS ; Start 08/05/16 at 15:15 Heparin Sodium (Porcine) 5,000 unit Q8HRS SQ Last administered on 08/08/16 13: 38; Start 08/05/16 at 22:00 Vancomycin HCl (Vanco Per Pharmacy) 1 each PRN DAILY PRN MC SEE COMMENTS Last administered on 08/06/16 13:14; Start 08/05/16 at 16:15; Stop 08/07/16 at 15:25 ; Status DC Calcium Acetate (Phoslo) 1,334 mg TIDWMEALS PO Last administered on 08/08/16 12:26; Start 08/05/16 at 17:00 Cyclobenzaprine HCl (Flexeril) 10 mg DAILY PO ; Start 08/06/16 at 09:00; Stop at 09:45; Status DC Docusate Sodium (Colace) 100 mg DAILY PO Last administered on 08/08/16 08:21; Start 08/06/16 at 09:00 Furosemide (Lasix) 80 mg TID PO Last administered on 08/08/16 13:33; Start 08/05/16 at 21:00 Hydralazine HCl (Apresoline) 50 mg HS PO Last administered on 08/07/16 21:10; Start 08/05/16 at 21:00 Hydrochlorothiazide (Hydrodiuril) 25 mg DAILY PO Last administered on 08:21; Start 08/06/16 at 09:00 Labetalol HCl (Trandate) 100 mg BID PO Last administered on 08/08/16 08:22; Start 08/05/16 at 21:00 Lamotrigine (LaMICtal) 100 mg BID PO Last administered on 08/08/16 08:19; Start 08/05/16 at 21:00 Lidocaine (Lidoderm) 1 patch DAILY TP Last administered on 08/08/16 08:17; Start 08/06/16 at 09:00 Metoclopramide HCl (Reglan) 10 mg TIDBFRMEAL PO ; Start 08/05/16 at 16:30; Stop 08/06/16 at 13:00; Status DC Polyethylene Glycol (miraLAX PACKET) 17 gm PRN DAILY PRN PO CONSTIPATION 1ST CHOICE; Start 08/05/16 at 16:15 Non-Formulary Medication 1 puff PRN Q6HRS PRN INH SHORTNESS OF BREATH; Start at 16:15; Status UNV Aripiprazole (Abilify) 20 mg DAILY PO ; Start 08/06/16 at 09:00; Stop 08/06/16 at 09:45; Status DC Erythromycin (E-Mycin) 250 mg BID PO Last administered on 08/08/16 08:23; Start 08/05/16 at 21:00 Escitalopram Oxalate (Lexapro) 20 mg DAILY PO Last administered on 08/08/16 08 :20; Start 08/06/16 at 09:00 Insulin Detemir (Levemir) 25 units QHS SQ Last administered on 08/07/16 21:21 ; Start 08/05/16 at 21:00 Insulin Aspart (Novolog) 15 units TIDWMEALS SQ ; Start 08/05/16 at 17:00; Stop at 17:00; Status DC Metolazone (Zaroxolyn) 5 mg DAILY PO Last administered on 08/08/16 08:18; Start 08/06/16 at 09:00 Multivitamins/ Calcium (Thera M Plus) 1 tab DAILY PO Last administered on 08:38; Start 08/06/16 at 09:00 Non-Formulary Medication 1 tab DAILY PO ; Start 08/06/16 at 09:00; Stop at 07:12; Status DC Fish Oil (Fish Oil) 1,000 mg DAILY PO Last administered on 08/08/16 08:17; Start 08/06/16 at 09:00 Ondansetron HCl (Zofran Odt) 4 mg PRN Q8HRS PRN PO NAUSEA/VOMITING; Start at 16:30 Losartan Potassium (Cozaar) 100 mg DAILY PO Last administered on 08/08/16 08: 23; Start 08/06/16 at 09:00 Folic Acid/ Multivitamins/Vit B12 (Nephro-Robert) 1 tab DAILY PO Last administered on 08/08/16 08:17; Start 08/06/16 at 09:00 Albuterol Sulfate (Ventolin Neb Soln) 2.5 mg PRN Q6HRS PRN NEB SHORTNESS OF BREATH; Start 08/05/16 at 16:30 Insulin Aspart (Novolog) 20 units TIDWMEALS SQ Last administered on 08/08/16 12:30; Start 08/05/16 at 17:00 Oxycodone/ Acetaminophen (Percocet 5/325) 1 tab PRN Q4HRS PRN PO PAIN SEVERE Last administered on 08/08/16 13:32; Start 08/05/16 at 17:15 Vancomycin HCl 1 each 1X ONCE MC Last administered on 08/06/16 06:00; Start 08/06/16 at 06:00; Stop 08/06/16 at 06:01; Status DC Insulin Aspart (Novolog) 20 units 1X ONCE SQ Last administered on 08/05/16 21: 00; Start 08/05/16 at 21:00; Stop 08/05/16 at 21:04; Status DC Vancomycin HCl 1 each 1X ONCE MC ; Start 08/07/16 at 06:00; Stop 08/07/16 at 06 :00; Status DC Aripiprazole (Abilify) 20 mg HS PO Last administered on 08/07/16 21:11; Start 08/06/16 at 21:00 Cyclobenzaprine HCl (Flexeril) 10 mg PRN DAILY PRN PO MUSCLE SPASMS Last administered on 08/07/16 14:46; Start 08/06/16 at 09:43 Darbepoetin Brendon (Aranesp) 100 mcg WEEKLYHS SQ Last administered on 08/06/16 22:09; Start 08/06/16 at 21:00 Heparin Sodium (Porcine) 10,000 unit STK-MED ONCE .ROUTE ; Start 08/06/16 at 12: 32; Stop 08/06/16 at 12:33; Status DC Lidocaine/ Epinephrine 20 ml 20 ml STK-MED ONCE .ROUTE ; Start 08/06/16 at 12:32 ; Stop 08/06/16 at 12:33; Status DC Heparin Sodium/ Sodium Chloride 500 ml @ As Directed STK-MED ONCE .ROUTE ; Start 08/06/16 at 12:32; Stop 08/06/16 at 12:33; Status DC Metoclopramide HCl (Reglan) 2.5 mg TIDBFRMEAL PO Last administered on 13:34; Start 08/06/16 at 16:30 Vancomycin HCl 1 each 1X ONCE MC ; Start 08/08/16 at 06:00; Stop 08/08/16 at 06 :00; Status DC Dextrose 25 gm STK-MED ONCE IV Last administered on 08/06/16 14:13; Start 04/12 at 14:10; Stop 08/06/16 at 14:11; Status DC Lidocaine/ Epinephrine (Xylocaine 1%-Epi 1:100,000) 3 ml 1X ONCE IJ Last administered on 08/06/16 14:43; Start 08/06/16 at 14:45; Stop 08/06/16 at 14:54 ; Status DC Heparin Sodium/ Sodium Chloride 50 unit 1X ONCE IV Last administered on 14:44; Start 08/06/16 at 14:45; Stop 08/06/16 at 14:54; Status DC Heparin Sodium (Porcine) 2,400 unit 1X ONCE INT CAT Last administered on 14:43; Start 08/06/16 at 14:45; Stop 08/06/16 at 14:54; Status DC Dextrose 12.5 gm PRN Q15MIN PRN IV SEE COMMENTS; Start 08/06/16 at 19:45 Heparin Sodium (Porcine) 2000 unit 2,000 unit 1X STAT IV Last administered on 08/07/16 09:41; Start 08/07/16 at 09:19; Stop 08/07/16 at 09:37; Status DC Sodium Chloride (Iv Sodium Chloride 0.9% 1000ml Bag) 1,000 ml @ 1,000 mls/hr Q1H PRN IV hypotension; Start 08/07/16 at 09:19; Stop 08/07/16 at 16:00; Status DC Diphenhydramine HCl (Benadryl) 25 mg 1X PRN PRN IV ITCHING; Start 08/07/16 at 09:30; Stop 08/07/16 at 16:00; Status DC Diphenhydramine HCl (Benadryl) 25 mg 1X PRN PRN IV ITCHING; Start 08/07/16 at 09:30; Stop 08/07/16 at 16:00; Status DC Sodium Chloride (Normal Saline Flush) 10 ml 1X PRN PRN IV AP catheter pack; Start 08/07/16 at 09:30; Stop 08/07/16 at 16:00; Status DC Sodium Chloride 10 ml 10 ml 1X PRN PRN IV NUTRITION ASSISTANT catheter pack; Start 08/07/16 at 09:30; Stop 08/07/16 at 16:00; Status DC Sodium Chloride (Iv Sodium Chloride 0.9% 1000ml Bag) 1,000 ml @ 400 mls/hr Q2H30M PRN IV PATENCY; Start 08/07/16 at 09:19; Stop 08/07/16 at 16:00; Status DC Info 1 each 1 each PRN DAILY PRN MC SEE COMMENTS; Start 08/07/16 at 09:30; Status UNV Cefazolin Sodium/ Sodium Chloride (Ancef/Iv Sodium Chloride 0.9% 50ml) 50 ml @ 100 mls/hr DAILY IV Last administered on 08/08/16 08:24; Start 08/07/16 at 16: 00 Acetaminophen (Tylenol) 650 mg PRN Q6HRS PRN PO MILD PAIN / TEMP Last administered on 08/08/16 08:17; Start 08/07/16 at 17:30 Active Scripts Active Miralax (Polyethylene Glycol 3350) 17 Gm Powd.pack 17 Gm PO PRN DAILY PRN Metoclopramide Hcl 10 Mg Tablet 10 Mg PO TIDBFRMEAL Reported Novolog (Insulin Aspart) 100 Unit/1 Ml Cartridge 20 Unit SQ TIDWMEALS Dionisio-Tab (Erythromycin Base) 250 Mg Tablet.dr 250 Mg PO BID Dialyvite 800 With Zinc (Vitamin B Comp W-C/Fa/Zinc) 0.8 Mg Tablet 0.8 Mg PO DAILY Escitalopram Oxalate 20 Mg Tablet 1 Tab PO DAILY Fish Oil (Crescent-3 Fatty Acids) 300 Mg Capsule 300 Mg PO DAILY Colace (Docusate Sodium) 100 Mg Capsule 1 Cap PO DAILY Cyclobenzaprine Hcl 10 Mg Tablet 1 Tab PO DAILY Abilify (Aripiprazole) 20 Mg Tablet 20 Mg PO DAILY Lidoderm (Lidocaine) 700 Mg Adh..patch 1 Patch TP DAILY Percocet 5-325 Mg Tablet (Oxycodone/Acetaminophen) 1 Each Tablet 1 Tab PO PRN Q4 -6HRS PRN Metolazone 5 Mg Tablet 5 Mg PO DAILY Lamotrigine 100 Mg Tablet 1 Tab PO BID Valsartan 320 Mg Tablet 320 Mg PO DAILY Zofran (Ondansetron Hcl) 4 Mg Tablet 4 Mg PO TID PRN Essential Daily (Multivit With Calcium,Iron,Min) 1 Each Tablet 1 Each PO DAILY Lasix (Furosemide) 80 Mg Tablet 80 Mg PO TID Trinessa (Norgestimate-Ethinyl Estradiol) 1 Each Tablet 1 Tab PO DAILY Phoslo (Calcium Acetate) 667 Mg Capsule 1,334 Mg PO TIDWMEALS Proair Hfa Inhaler (Albuterol Sulfate) 8.5 Gm Hfa.aer.ad 1 Puff INH PRN Q6HRS PRN Hydralazine Hcl 50 Mg Tablet 1 Tab PO HS Tri-Sprintec (Norgestimate-Ethinyl Estradiol) 1 Each Tablet 1 Tab PO DAILY Hydrochlorothiazide Tablet (Hydrochlorothiazide) 25 Mg Tablet 1 Tab PO DAILY Labetalol Hcl 100 Mg Tablet 1 Tab PO BID Humalog Mix 75-25 Vial (Insulin Npl/Insulin Lispro) 100 Unit/1 Ml Vial 15 Unit SQ TIDAC Lantus Solostar (Insulin Glargine,Hum.rec.anlog) 100 Unit/1 Ml Insuln.pen 25 Unit SQ QHS Vitals/I & O Vital Sign - Last 24 Hours 08/07/16 08/07/16 08/07/16 08/07/16 15:00 17:06 19:00 20:15 Temp 101.3 99.0 101.3 99.0 Pulse 106 112 Resp 24 22 B/P 129/57 128/52 Pulse Ox 93 93 95 O2 Delivery Room Air Room Air Room Air Room Air 08/07/16 08/07/16 08/07/16 08/07/16 21:10 21:10 21:11 23:00 Temp 102.7 102.7 Pulse 112 112 115 Resp 22 B/P 128/52 128/52 125/49 Pulse Ox 93 O2 Delivery Room Air Room Air 08/08/16 08/08/16 08/08/16 08/08/16 01:17 03:00 06:21 07:00 Temp 98.9 98.8 98.9 98.8 Pulse 99 95 Resp 18 18 B/P 130/61 130/70 Pulse Ox 96 98 O2 Delivery Room Air Room Air 08/08/16 08/08/16 08/08/16 08/08/16 08:20 08:22 08:23 09:06 Pulse 114 114 B/P 123/59 123/59 Pulse Ox 93 O2 Delivery Room Air Room Air 08/08/16 08/08/16 08/08/16 08/08/16 09:50 10:50 11:00 13:32 Temp 98.9 98.9 Pulse 98 Resp 8 20 B/P 99/44 Pulse Ox 93 93 93 O2 Delivery Room Air Room Air Room Air Room Air Intake and Output 08/07/16 08/07/16 08/08/16 15:00 23:00 07:00 Intake Total 740 ml 1100 ml 800 ml Output Total 200 ml 100 ml Balance 740 ml 900 ml 700 ml JAZ RIOS III DO Aug 08, 2016 14:24
[2016-08-08 15:00] VITALS: BP 110/54
[2016-08-08] MEDS ORDERED: VANCOMYCIN 1 GM in IV NORMAL SALINE 250ML 250 ML IV ONE (16:00)
[2016-08-08] MEDS: ARIPIPRAZOLE 5 MG TABLET. PO SCH (20:51)
[2016-08-08] MEDS: HYDRALAZINE 50 MG TABLET PO SCH (20:54)
[2016-08-08] MEDS: INSULIN DETEMIR 300 UNITS/3 ML INSULN.PEN. SQ SCH (20:59)
[2016-08-08 23:00] VITALS: BP 112/61
[2016-08-09] MEDS: OXYCODONE/APAP 5/325 TABLET. PO PRN ×4 (02:39→22:07)
[2016-08-09 03:00] VITALS: BP 131/57
[2016-08-09] MEDS: ACETAMINOPHEN 325 MG TABLET. PO PRN ×3 (03:04→22:36)
[2016-08-09] MEDS: HEPARIN PF for SUB-Q USE 5,000 UNIT/0.5 ML VIAL. SQ SCH ×3 (06:41→22:17)
[2016-08-09 07:04] LABS: CALCIUM 8.4 mg/dL (8.5-10.1); CREATININE 5.9 mg/dL (0.6-1.0); GFR 8.6; POTASSIUM 5.6 mmol/L (3.5-5.1)
[2016-08-09 07:19] LABS: BASO # 0.1 x10^3/uL (0.0-0.2); BASO % 1 % (0-3); EOS % 1 % (0-3); HEMATOCRIT 21.2 % (36.0-47.0); HEMOGLOBIN 7.1 g/dL (12.0-15.5); LYMPH # 1.8 x10^3/uL (1.0-4.8); LYMPH % 15 % (24-48); MEAN CORPUSCULAR HEMOGLOBIN 31 pg (25-35); MEAN CORPUSCULAR HGB CONC 34 g/dL (31-37); MEAN CORPUSCULAR VOLUME 93 fL (79-100); MONO % 5 % (0-9); NEUT % 78 % (31-73); PLATELET COUNT 219 x10^3/uL (140-400); RED BLOOD COUNT 2.29 x10^6/uL (3.50-5.40); RED CELL DISTRIBUTION WIDTH 13.1 % (11.5-14.5); WHITE BLOOD COUNT 11.9 x10^3/uL (4.0-11.0)
[2016-08-09] MEDS ORDERED: IOHEXOL 240 MG/ML 50ML VIAL. PO ONE (07:45)
[2016-08-09] MEDS ORDERED: IOHEXOL 300 MG/ML 75 ML VIAL IV ONE (07:45)
[2016-08-09 07:57] VITALS: BP 124/67
[2016-08-09] MEDS: LIDOCAINE (700MG/PATCH) PATCH. TP SCH (09:11)
[2016-08-09] MEDS: lamoTRIgine 25 MG TABLET. PO SCH ×2 (09:12→22:05)
[2016-08-09] MEDS: FOLIC/VIT B COMP W-C (RENAL) TABLET. PO SCH (09:13)
[2016-08-09] MEDS: ESCITALOPRAM 10 MG TABLET. PO SCH (09:13)
[2016-08-09] MEDS: OMEGA-3 FATTY ACIDS/FISH OIL 1,000 MG CAPSULE. PO SCH (09:13)
[2016-08-09] MEDS: ERYTHROMYCIN BASE 250 MG TABLET PO SCH ×2 (09:13→22:07)
[2016-08-09] MEDS: MULTIVITAMIN with MINERAL TABLET. PO SCH (09:13)
[2016-08-09] MEDS: METOLAZONE 2.5 MG TABLET PO SCH (09:13)
[2016-08-09] MEDS: DOCUSATE SODIUM 100 MG CAPSULE PO SCH (09:13)
[2016-08-09] MEDS: CALCIUM ACETATE 667 MG CAPSULE PO SCH ×3 (09:13→18:00)
[2016-08-09] MEDS: FUROSEMIDE 80 MG TABLET PO SCH ×3 (09:13→22:06)
[2016-08-09] MEDS: HYDROCHLOROTHIAZIDE 25 MG TABLET PO SCH (09:14)
[2016-08-09] MEDS: LABETALOL HCL 200 MG TABLET PO SCH ×2 (09:14→22:08)
[2016-08-09] MEDS: METOCLOPRAMIDE 5 MG TABLET PO SCH ×3 (09:14→18:00)
[2016-08-09] MEDS: LOSARTAN POTASSIUM 50 MG TABLET. PO SCH (09:15)
[2016-08-09] MEDS: CEFAZOLIN SODIUM 1 GM in IV NORMAL SALINE 50ML 50 ML IV SCH (09:15)
[2016-08-09] MEDS: INSULIN ASPART 300 UNITS/3 ML INSULN.PEN SQ SCH ×3 (09:27→18:07)
--- NOTE | 2016-08-09 10:21 | PDOC ---
SUBJECTIVE ROS ESRD not feeling well, Had fevers CVS: no Orthopnea, no CP RESP: no SOB, no CUI GI: occ Nausea, + Vomiting : no Dysuria, no Urgency OBJECTIVE Vital Signs Vital Signs Date Time Temp Pulse Resp B/P Pulse Ox O2 Delivery O2 Flow Rate FiO2 08/09/16 09:15 92 113/60 08/09/16 08:00 Room Air 08/09/16 07:57 97.5 20 92 97.5 I & 0 Intake and Output 08/09/16 07:00 Intake Total 3650 ml Output Total 850 ml Balance 2800 ml Intake Oral 3650 ml Output Urine Total 850 ml PHYSICAL EXAM Physical Exam GEN: Awake, Oriented x 3, In no distress EYES: Vision Unchanged, Conjunctiva Normal EN: No EN Drainage, Mucous Membranes moist NECK: no JVD, no JVP, Supple, no Thyromegaly CVS: S1S2, soft Murmur, No Gallop, No Rub,no pitting Edema RESP: no Rales, no Rhonchi,no Acc. Muscle Use GI: BS + ve, NO Bruit, Non Tender, Non Distended : no CVA tenderness, no Suprapubic Tenderness DIAGNOSIS/ASSESSMENT Assessment & Plan ESRD: Dialysis as below F 180 NR 3.5 Hrs 2 K 2.5 Ca 140 Na 40 HC03 Qb 350 + Qd 500+ Heparin 0 Units Uf 1-2 Kgs or to dry weight as tolerated May give 25-50 gms of 25% Albumin if needed to maintain Hemodynamic stability Treatment plan reviewed and discussed with records and information manager ANEMIA; Aranesp as ordered, will hold off of Blood Transfusion as long as we can due to txp Candidacy Febrile Illness - Await CT as ordered HTN: Current BP meds as reviewed. See orders for changes. RAFAELA/ BONE & MINERAL: Ct Present binder regimen and alter base d on PO intake Discussed Plan of Care with family [] at bedside [] over the phone Problems: COMMENT/RELEVANT DATA Meds Current Medications Medications (Trade) Dose Ordered Sig/Sherine Start Time Stop Time Status Last Admin Dose Admin Acetaminophen (Tylenol) 650 mg PRN Q4HRS PRN 08/05/16 10:45 08/06/16 10:44 DC 08/05/16 11:56 650 MG Acetaminophen 650 mg 650 mg PRN Q6HRS PRN 08/07/16 17:30 08/09/16 03:04 650 MG Albuterol Sulfate (Ventolin Neb Soln) 2.5 mg PRN Q6HRS PRN 08/05/16 16:30 Aripiprazole (Abilify) 20 mg HS 08/06/16 21:00 08/08/16 20:51 20 MG Calcium Acetate (Phoslo) 1,334 mg TIDWMEALS 08/05/16 17:00 08/09/16 09:13 1,334 MG Cefazolin Sodium/ Sodium Chloride (Ancef/Iv Sodium Chloride 0.9% 50ml) 50 ml @ 100 mls/hr DAILY 08/07/16 16:00 08/09/16 09:15 100 MLS/HR Cyclobenzaprine HCl (Flexeril) 10 mg PRN DAILY PRN 08/06/16 09:43 08/07/16 14:46 10 MG Darbepoetin Brendon (Aranesp) 100 mcg WEEKLYHS 08/06/16 21:00 08/06/16 22:09 100 MCG Dextrose 12.5 gm PRN Q15MIN PRN 08/06/16 19:45 Diphenhydramine HCl (Benadryl) 25 mg 1X PRN PRN 08/07/16 09:30 08/07/16 16:00 DC Docusate Sodium (Colace) 100 mg DAILY 08/06/16 09:00 08/09/16 09:13 100 MG Erythromycin (E-Mycin) 250 mg BID 08/05/16 21:00 08/09/16 09:13 250 MG Escitalopram Oxalate (Lexapro) 20 mg DAILY 08/06/16 09:00 08/09/16 09:13 20 MG Fish Oil (Fish Oil) 1,000 mg DAILY 08/06/16 09:00 08/09/16 09:13 1,000 MG Folic Acid/ Multivitamins/Vit B12 (Nephro-Robert) 1 tab DAILY 08/06/16 09:00 08/09/16 09:13 1 TAB Furosemide (Lasix) 80 mg TID 08/05/16 21:00 08/09/16 09:13 80 MG Heparin Sodium (Porcine) 2,000 unit 1X STAT 08/07/16 09:19 08/07/16 09:37 DC 08/07/16 09:41 2,000 UNIT Heparin Sodium/ Sodium Chloride 50 unit 1X ONCE 08/06/16 14:45 08/06/16 14:54 DC 08/06/16 14:44 50 UNIT Hydralazine HCl (Apresoline) 50 mg HS 08/05/16 21:00 08/08/16 20:54 50 MG Hydrochlorothiazide (Hydrodiuril) 25 mg DAILY 08/06/16 09:00 08/09/16 09:14 25 MG Info (PHARMACY MONITORING -- do not chart) 1 each PRN DAILY PRN 08/05/16 15:15 Info 1 each 1 each PRN DAILY PRN 08/07/16 09:30 UNV Insulin Aspart (Novolog) 20 units 1X ONCE 08/05/16 21:00 08/05/16 21:04 DC 08/05/16 21:00 20 UNITS Insulin Detemir (Levemir) 25 units QHS 08/05/16 21:00 08/08/16 20:59 25 UNITS Iohexol (Omnipaque 240 Mg/ml) 50 ml 1X ONCE 08/09/16 07:45 08/09/16 07:46 DC 08/09/16 08:59 50 ML Iohexol (Omnipaque 300 Mg/ml) 75 ml 1X ONCE 08/09/16 07:45 08/09/16 07:46 DC 08/09/16 08:59 75 ML Labetalol HCl (Trandate) 100 mg BID 08/05/16 21:00 08/09/16 09:14 100 MG Lamotrigine (LaMICtal) 100 mg BID 08/05/16 21:00 08/09/16 09:12 100 MG Lidocaine (Lidoderm) 1 patch DAILY 08/06/16 09:00 08/09/16 09:11 1 PATCH Lidocaine/ Epinephrine (Xylocaine 1%-Epi 1:100,000) 3 ml 1X ONCE 08/06/16 14:45 08/06/16 14:54 DC 08/06/16 14:43 3 ML Losartan Potassium (Cozaar) 100 mg DAILY 08/06/16 09:00 08/09/16 09:15 100 MG Metoclopramide HCl (Reglan) 2.5 mg TIDBFRMEAL 08/06/16 16:30 08/09/16 09:14 2.5 MG Metolazone (Zaroxolyn) 5 mg DAILY 08/06/16 09:00 08/09/16 09:13 5 MG Multivitamins/ Calcium (Thera M Plus) 1 tab DAILY 08/06/16 09:00 08/09/16 09:13 1 TAB Non-Formulary Medication 1 tab DAILY 08/06/16 09:00 08/07/16 07:12 DC Ondansetron HCl (Zofran Odt) 4 mg PRN Q8HRS PRN 08/05/16 16:30 Ondansetron HCl (Zofran) 4 mg PRN Q8HRS PRN 08/05/16 10:45 08/06/16 10:44 DC Oxycodone/ Acetaminophen (Percocet 5/325) 1 tab PRN Q4HRS PRN 08/05/16 17:15 08/09/16 06:38 1 TAB Polyethylene Glycol (miraLAX PACKET) 17 gm PRN DAILY PRN 08/05/16 16:15 Sodium Chloride (Iv Sodium Chloride 0.9% 1000ml Bag) 1,000 ml @ 400 mls/hr Q2H30M PRN 08/07/16 09:19 08/07/16 16:00 DC Sodium Chloride (Normal Saline Flush) 10 ml 1X PRN PRN 08/07/16 09:30 08/07/16 16:00 DC Sodium Chloride 10 ml 10 ml 1X PRN PRN 08/07/16 09:30 08/07/16 16:00 DC Vancomycin HCl 1 each 1X ONCE 08/08/16 06:00 08/08/16 06:00 DC Vancomycin HCl (Vanco Per Pharmacy) 1 each PRN DAILY PRN 08/05/16 16:15 08/07/16 15:25 DC 08/06/16 13:14 1 EACH Vancomycin HCl 1 each 1 each PRN DAILY PRN 08/05/16 10:45 08/05/16 16:16 DC Vancomycin HCl/ Sodium Chloride (Iv Sodium Chloride 0.9% 250ml) 250 ml @ 250 mls/hr 1X ONCE 08/08/16 16:00 08/08/16 16:59 DC 08/08/16 16:00 250 MLS/HR Vancomycin HCl/ Sodium Chloride (Iv Sodium Chloride 0.9% 500ml Bag) 500 ml @ 250 mls/hr 1X ONCE 08/05/16 11:00 08/05/16 12:59 DC 08/05/16 10:56 250 MLS/HR Lab Laboratory Tests Test 08/08/16 10:29 08/08/16 16:16 08/08/16 20:48 08/09/16 06:20 Glucose (Fingerstick) 150mg/dL (70-99) 125mg/dL (70-99) 118mg/dL (70-99) White Blood Count 11.9x10^3/uL (4.0-11.0) Red Blood Count 2.29x10^6/uL (3.50-5.40) Hemoglobin 7.1g/dL (12.0-15.5) Hematocrit 21.2% (36.0-47.0) Mean Corpuscular Volume 93fL (79-100) Mean Corpuscular Hemoglobin 31pg (25-35) Mean Corpuscular Hemoglobin Concent 34g/dL (31-37) Red Cell Distribution Width 13.1% (11.5-14.5) Platelet Count 219x10^3/uL (140-400) Neutrophils (%) (Auto) 78% (31-73) Lymphocytes (%) (Auto) 15% (24-48) Monocytes (%) (Auto) 5% (0-9) Eosinophils (%) (Auto) 1% (0-3) Basophils (%) (Auto) 1% (0-3) Neutrophils # (Auto) 9.3x10^3uL (1.8-7.7) Lymphocytes # (Auto) 1.8x10^3/uL (1.0-4.8) Monocytes # (Auto) 0.6x10^3/uL (0.0-1.1) Eosinophils # (Auto) 0.1x10^3/uL (0.0-0.7) Basophils # (Auto) 0.1x10^3/uL (0.0-0.2) Sodium Level 133mmol/L (136-145) Potassium Level 5.6mmol/L (3.5-5.1) Chloride Level 98mmol/L (98-107) Carbon Dioxide Level 21mmol/L (21-32) Anion Gap 14 (6-14) Blood Urea Nitrogen 54mg/dL (7-20) Creatinine 5.9mg/dL (0.6-1.0) Estimated GFR (Cockcroft-Gault) 8.6 Glucose Level 206mg/dL (70-99) Calcium Level 8.4mg/dL (8.5-10.1) Test 08/09/16 07:31 Glucose (Fingerstick) 205mg/dL (70-99) EDWARD MOTA MD Aug 09, 2016 10:21
[2016-08-09 10:53] VITALS: BP 103/54
--- NOTE | 2016-08-09 11:31 | PDOC ---
Infectious Disease Note Subjective Subjective Fever 102.7 last night Dialysis earlier Feeling alright, just tired ROS ROS GEN: Denies fevers, chills, sweats HEENT: Denies blurred vision, sore throat CV: Denies chest pain RESP: Denies shortness of air, cough GI: Denies n/v/d NEURO: Denies confusion, dizziness MSK: Denies weakness, joint pain/swelling Vital Sign Vital Signs Vital Signs Date Time Temp Pulse Resp B/P Pulse Ox O2 Delivery O2 Flow Rate FiO2 08/09/16 10:53 98.0 88 20 103/54 92 Room Air 98.0 Physical Exam PHYSICAL EXAM GENERAL: NAD, Alert HEENT: PERRL, OC/OP NECK: Supple, no JVD, no LN LUNGS: Clear HEART: S1S2, no gallop, no murmur ABD: Soft, NT, no organomegaly, no rebound EXT: No edema, no cyanosis DIPLOMATIC INTERPRETER: Alert, oriented x 3, no focal neurologic deficit SKIN: No rash IV: ok Labs Lab Laboratory Tests Test 08/08/16 16:16 08/08/16 20:48 08/09/16 06:20 08/09/16 07:31 Glucose (Fingerstick) 125mg/dL (70-99) 118mg/dL (70-99) 205mg/dL (70-99) White Blood Count 11.9x10^3/uL (4.0-11.0) Red Blood Count 2.29x10^6/uL (3.50-5.40) Hemoglobin 7.1g/dL (12.0-15.5) Hematocrit 21.2% (36.0-47.0) Mean Corpuscular Volume 93fL (79-100) Mean Corpuscular Hemoglobin 31pg (25-35) Mean Corpuscular Hemoglobin Concent 34g/dL (31-37) Red Cell Distribution Width 13.1% (11.5-14.5) Platelet Count 219x10^3/uL (140-400) Neutrophils (%) (Auto) 78% (31-73) Lymphocytes (%) (Auto) 15% (24-48) Monocytes (%) (Auto) 5% (0-9) Eosinophils (%) (Auto) 1% (0-3) Basophils (%) (Auto) 1% (0-3) Neutrophils # (Auto) 9.3x10^3uL (1.8-7.7) Lymphocytes # (Auto) 1.8x10^3/uL (1.0-4.8) Monocytes # (Auto) 0.6x10^3/uL (0.0-1.1) Eosinophils # (Auto) 0.1x10^3/uL (0.0-0.7) Basophils # (Auto) 0.1x10^3/uL (0.0-0.2) Sodium Level 133mmol/L (136-145) Potassium Level 5.6mmol/L (3.5-5.1) Chloride Level 98mmol/L (98-107) Carbon Dioxide Level 21mmol/L (21-32) Anion Gap 14 (6-14) Blood Urea Nitrogen 54mg/dL (7-20) Creatinine 5.9mg/dL (0.6-1.0) Estimated GFR (Cockcroft-Gault) 8.6 Glucose Level 206mg/dL (70-99) Calcium Level 8.4mg/dL (8.5-10.1) Test 08/09/16 11:21 Glucose (Fingerstick) 317mg/dL (70-99) Objective Assessment Fever Leukocytosis Staph infection - line. s/p HDC removal and temp replacement, 08/06. MSSA from 08/03 Tra. CKD on HD DM Contaminated Urine specimen Plan Plan of Care change to vanc and zosyn ct just done , will check Repeat BC F/u cults and labs copy of micro from Tra on chart FRACISCO MOTA MD Aug 09, 2016 11:31
--- NOTE | 2016-08-09 12:28 | RAD ---
CT of the chest, abdomen and pelvis with contrast, 08/09/2016: History: Fever, renal failure Multidetector CT imaging was performed following oral and IV administration of contrast. A left jugular catheter extends into the right atrium near its junction with the inferior vena cava. The heart is at the upper limits of normal in size. A trace amount of pericardial fluid is present. Several small mediastinal lymph nodes are seen without evidence of pathologic enlargement. There are mild linear parenchymal opacities in both lungs with dominant involvement of the lung bases. The appearance suggests atelectasis. There are mild patchy groundglass opacities probably representing atelectasis or mild pulmonary edema. No significant pleural fluid is evident. The gallbladder is surgically absent. The liver is at the upper limits of normal in size measuring 20.5 cm in craniocaudad extent. No hepatic mass or bile duct dilatation is seen. The pancreas is unremarkable. The spleen appears to be at the upper limits of normal in size measuring 17.5 cm in AP dimension and 12.5 cm in craniocaudad extent. The kidneys show no evidence of obstruction or mass. The abdominal aorta is of normal caliber. Several small retroperitoneal lymph nodes are seen without evidence of pathologic enlargement. No abdominal or pelvic adenopathy is seen. Femoral and iliac vascular calcifications are present. The uterus and ovaries are unremarkable. The bowel loops are not dilated. There is a moderate amount stool in the colon. No free fluid or free air is evident in the abdomen or pelvis. IMPRESSION: 1. Mild linear atelectasis in both lungs. 2. Mild patchy groundglass opacities in both lungs suggesting additional atelectasis and/or mild pulmonary edema. 3. Borderline hepatosplenomegaly. 4. No acute abdominal or pelvic abnormality is detected.
[2016-08-09] MEDS: PIPERACILLIN/TAZOBACTAM 2.25 GM in IV NORMAL SALINE 50ML 50 ML IV SCH ×2 (13:01→18:01)
[2016-08-09] MEDS ORDERED: IV NORMAL SALINE 1000ML BAG 1,000 ML IV PRN ×2 (13:30)
[2016-08-09] MEDS ORDERED: DIALYSIS PATIENT. MC PRN (15:45)
--- NOTE | 2016-08-09 16:42 | PDOC ---
PROGRESS NOTES Chief Complaint Chief Complaint Fevers Yu site infection ASSESSMENT AND PLAN: 1. Permacath infect: Yu d/c.ed...and replacement put in at same time... Cultures here with coag neg staph and GNR. prior blood cult with MSSA. ID service following. on Zosy, + Vanco 2. ESRD: on HD as per Dr Roxie Lassiter. on lasix 80 tid and Zaroxolyn 3. Hyponatremia: did receive add.l HD today 4. Hypokalemia: replete with HD 5. Anemia: 2/2 ESRD. worsening, prob 2/2 inflammation/infection. on EPO, iron as per nephro. may need increase in EPO dose 6. DM2: on long- and short-acting insulin with currently poor control. in ISS ; adjust levemir 7. HTN: good control on current regimen 8. Bipolar D/O: cont home regimen with lexapro, abilify, lamotrigine 9. insomnia 10. Obesity, BMI 43 11. prophylaxis: heparin Vitals Vitals Vital Signs Date Time Temp Pulse Resp B/P Pulse Ox O2 Delivery O2 Flow Rate FiO2 08/09/16 16:07 16 Room Air 08/09/16 10:53 98.0 88 103/54 92 98.0 Physical Exam General: Alert, Oriented X3, Cooperative, No acute distress Heart: Regular rate, No murmurs, Other (No rubs or Gallops) Lungs: Clear Abdomen: Normal bowel sounds, Soft, No tenderness Extremities: No clubbing, No edema, Normal pulses, No tenderness/swelling Skin: Other (exudate from base of HD cath) Labs LABS Laboratory Tests Test 08/08/16 20:48 08/09/16 06:20 08/09/16 07:31 08/09/16 11:21 Glucose (Fingerstick) 118mg/dL (70-99) 205mg/dL (70-99) 317mg/dL (70-99) White Blood Count 11.9x10^3/uL (4.0-11.0) Red Blood Count 2.29x10^6/uL (3.50-5.40) Hemoglobin 7.1g/dL (12.0-15.5) Hematocrit 21.2% (36.0-47.0) Mean Corpuscular Volume 93fL (79-100) Mean Corpuscular Hemoglobin 31pg (25-35) Mean Corpuscular Hemoglobin Concent 34g/dL (31-37) Red Cell Distribution Width 13.1% (11.5-14.5) Platelet Count 219x10^3/uL (140-400) Neutrophils (%) (Auto) 78% (31-73) Lymphocytes (%) (Auto) 15% (24-48) Monocytes (%) (Auto) 5% (0-9) Eosinophils (%) (Auto) 1% (0-3) Basophils (%) (Auto) 1% (0-3) Neutrophils # (Auto) 9.3x10^3uL (1.8-7.7) Lymphocytes # (Auto) 1.8x10^3/uL (1.0-4.8) Monocytes # (Auto) 0.6x10^3/uL (0.0-1.1) Eosinophils # (Auto) 0.1x10^3/uL (0.0-0.7) Basophils # (Auto) 0.1x10^3/uL (0.0-0.2) Sodium Level 133mmol/L (136-145) Potassium Level 5.6mmol/L (3.5-5.1) Chloride Level 98mmol/L (98-107) Carbon Dioxide Level 21mmol/L (21-32) Anion Gap 14 (6-14) Blood Urea Nitrogen 54mg/dL (7-20) Creatinine 5.9mg/dL (0.6-1.0) Estimated GFR (Cockcroft-Gault) 8.6 Glucose Level 206mg/dL (70-99) Calcium Level 8.4mg/dL (8.5-10.1) Assessment and Plan Assessmemt and Plan Problems Medical Problems: (1) Fever Status: Acute Problems: Comment Review of Relevant I have reviewed the following items kathya (where applicable) has been applied. Labs Laboratory Tests Test 08/07/16 20:44 08/08/16 05:00 08/08/16 07:29 08/08/16 10:29 Glucose (Fingerstick) 124mg/dL (70-99) 160mg/dL (70-99) 150mg/dL (70-99) White Blood Count 12.3x10^3/uL (4.0-11.0) Red Blood Count 2.46x10^6/uL (3.50-5.40) Hemoglobin 7.5g/dL (12.0-15.5) Hematocrit 22.7% (36.0-47.0) Mean Corpuscular Volume 92fL (79-100) Mean Corpuscular Hemoglobin 31pg (25-35) Mean Corpuscular Hemoglobin Concent 33g/dL (31-37) Red Cell Distribution Width 13.3% (11.5-14.5) Platelet Count 215x10^3/uL (140-400) Neutrophils (%) (Auto) 78% (31-73) Lymphocytes (%) (Auto) 16% (24-48) Monocytes (%) (Auto) 6% (0-9) Eosinophils (%) (Auto) 1% (0-3) Basophils (%) (Auto) 0% (0-3) Neutrophils # (Auto) 9.5x10^3uL (1.8-7.7) Lymphocytes # (Auto) 1.9x10^3/uL (1.0-4.8) Monocytes # (Auto) 0.7x10^3/uL (0.0-1.1) Eosinophils # (Auto) 0.1x10^3/uL (0.0-0.7) Basophils # (Auto) 0.0x10^3/uL (0.0-0.2) Sodium Level 129mmol/L (136-145) Potassium Level 5.2mmol/L (3.5-5.1) Chloride Level 95mmol/L (98-107) Carbon Dioxide Level 23mmol/L (21-32) Anion Gap 11 (6-14) Blood Urea Nitrogen 36mg/dL (7-20) Creatinine 4.8mg/dL (0.6-1.0) Estimated GFR (Cockcroft-Gault) 10.9 Glucose Level 202mg/dL (70-99) Calcium Level 8.1mg/dL (8.5-10.1) Test 08/08/16 16:16 08/08/16 20:48 08/09/16 06:20 08/09/16 07:31 Glucose (Fingerstick) 125mg/dL (70-99) 118mg/dL (70-99) 205mg/dL (70-99) White Blood Count 11.9x10^3/uL (4.0-11.0) Red Blood Count 2.29x10^6/uL (3.50-5.40) Hemoglobin 7.1g/dL (12.0-15.5) Hematocrit 21.2% (36.0-47.0) Mean Corpuscular Volume 93fL (79-100) Mean Corpuscular Hemoglobin 31pg (25-35) Mean Corpuscular Hemoglobin Concent 34g/dL (31-37) Red Cell Distribution Width 13.1% (11.5-14.5) Platelet Count 219x10^3/uL (140-400) Neutrophils (%) (Auto) 78% (31-73) Lymphocytes (%) (Auto) 15% (24-48) Monocytes (%) (Auto) 5% (0-9) Eosinophils (%) (Auto) 1% (0-3) Basophils (%) (Auto) 1% (0-3) Neutrophils # (Auto) 9.3x10^3uL (1.8-7.7) Lymphocytes # (Auto) 1.8x10^3/uL (1.0-4.8) Monocytes # (Auto) 0.6x10^3/uL (0.0-1.1) Eosinophils # (Auto) 0.1x10^3/uL (0.0-0.7) Basophils # (Auto) 0.1x10^3/uL (0.0-0.2) Sodium Level 133mmol/L (136-145) Potassium Level 5.6mmol/L (3.5-5.1) Chloride Level 98mmol/L (98-107) Carbon Dioxide Level 21mmol/L (21-32) Anion Gap 14 (6-14) Blood Urea Nitrogen 54mg/dL (7-20) Creatinine 5.9mg/dL (0.6-1.0) Estimated GFR (Cockcroft-Gault) 8.6 Glucose Level 206mg/dL (70-99) Calcium Level 8.4mg/dL (8.5-10.1) Test 08/09/16 11:21 Glucose (Fingerstick) 317mg/dL (70-99) Laboratory Tests Test 08/08/16 20:48 08/09/16 06:20 08/09/16 07:31 08/09/16 11:21 Glucose (Fingerstick) 118mg/dL (70-99) 205mg/dL (70-99) 317mg/dL (70-99) White Blood Count 11.9x10^3/uL (4.0-11.0) Red Blood Count 2.29x10^6/uL (3.50-5.40) Hemoglobin 7.1g/dL (12.0-15.5) Hematocrit 21.2% (36.0-47.0) Mean Corpuscular Volume 93fL (79-100) Mean Corpuscular Hemoglobin 31pg (25-35) Mean Corpuscular Hemoglobin Concent 34g/dL (31-37) Red Cell Distribution Width 13.1% (11.5-14.5) Platelet Count 219x10^3/uL (140-400) Neutrophils (%) (Auto) 78% (31-73) Lymphocytes (%) (Auto) 15% (24-48) Monocytes (%) (Auto) 5% (0-9) Eosinophils (%) (Auto) 1% (0-3) Basophils (%) (Auto) 1% (0-3) Neutrophils # (Auto) 9.3x10^3uL (1.8-7.7) Lymphocytes # (Auto) 1.8x10^3/uL (1.0-4.8) Monocytes # (Auto) 0.6x10^3/uL (0.0-1.1) Eosinophils # (Auto) 0.1x10^3/uL (0.0-0.7) Basophils # (Auto) 0.1x10^3/uL (0.0-0.2) Sodium Level 133mmol/L (136-145) Potassium Level 5.6mmol/L (3.5-5.1) Chloride Level 98mmol/L (98-107) Carbon Dioxide Level 21mmol/L (21-32) Anion Gap 14 (6-14) Blood Urea Nitrogen 54mg/dL (7-20) Creatinine 5.9mg/dL (0.6-1.0) Estimated GFR (Cockcroft-Gault) 8.6 Glucose Level 206mg/dL (70-99) Calcium Level 8.4mg/dL (8.5-10.1) Microbiology 08/08/16 Blood Culture - Preliminary, Resulted NO GROWTH AFTER 1 DAY 08/06/16 Urine Culture - Final, Complete 08/06/16 Urine Culture Result 1 (PEGGY) - Final, Complete 08/06/16 Gram Stain - Final, Complete Medications Current Medications Ondansetron HCl (Zofran) 4 mg PRN Q8HRS PRN IV NAUSEA/VOMITING; Start 08/05/16 at 10:45; Stop 08/06/16 at 10:44; Status DC Acetaminophen (Tylenol) 650 mg PRN Q4HRS PRN PO FEVER Last administered on 11:56; Start 08/05/16 at 10:45; Stop 08/06/16 at 10:44; Status DC Vancomycin HCl 1 each 1 each PRN DAILY PRN MC SEE COMMENTS; Start 08/05/16 at 10 :45; Stop 08/05/16 at 16:16; Status DC Vancomycin HCl/ Sodium Chloride (Iv Sodium Chloride 0.9% 500ml Bag) 500 ml @ 250 mls/hr 1X ONCE IV Last administered on 08/05/16 10:56; Start 08/05/16 at 11 :00; Stop 08/05/16 at 12:59; Status DC Info (PHARMACY MONITORING -- do not chart) 1 each PRN DAILY PRN MC SEE COMMENTS ; Start 08/05/16 at 15:15 Heparin Sodium (Porcine) 5,000 unit Q8HRS SQ Last administered on 08/09/16 06: 41; Start 08/05/16 at 22:00 Vancomycin HCl (Vanco Per Pharmacy) 1 each PRN DAILY PRN MC SEE COMMENTS Last administered on 08/06/16 13:14; Start 08/05/16 at 16:15; Stop 08/07/16 at 15:25 ; Status DC Calcium Acetate (Phoslo) 1,334 mg TIDWMEALS PO Last administered on 08/09/16 11:51; Start 08/05/16 at 17:00 Cyclobenzaprine HCl (Flexeril) 10 mg DAILY PO ; Start 08/06/16 at 09:00; Stop at 09:45; Status DC Docusate Sodium (Colace) 100 mg DAILY PO Last administered on 08/09/16 09:13; Start 08/06/16 at 09:00 Furosemide (Lasix) 80 mg TID PO Last administered on 08/09/16 09:13; Start 08/05/16 at 21:00 Hydralazine HCl (Apresoline) 50 mg HS PO Last administered on 08/08/16 20:54; Start 08/05/16 at 21:00 Hydrochlorothiazide (Hydrodiuril) 25 mg DAILY PO Last administered on 09:14; Start 08/06/16 at 09:00; Stop 08/09/16 at 10:22; Status DC Labetalol HCl (Trandate) 100 mg BID PO Last administered on 08/09/16 09:14; Start 08/05/16 at 21:00 Lamotrigine (LaMICtal) 100 mg BID PO Last administered on 08/09/16 09:12; Start 08/05/16 at 21:00 Lidocaine (Lidoderm) 1 patch DAILY TP Last administered on 08/09/16 09:11; Start 08/06/16 at 09:00 Metoclopramide HCl (Reglan) 10 mg TIDBFRMEAL PO ; Start 08/05/16 at 16:30; Stop 08/06/16 at 13:00; Status DC Polyethylene Glycol (miraLAX PACKET) 17 gm PRN DAILY PRN PO CONSTIPATION 1ST CHOICE; Start 08/05/16 at 16:15 Non-Formulary Medication 1 puff PRN Q6HRS PRN INH SHORTNESS OF BREATH; Start at 16:15; Status UNV Aripiprazole (Abilify) 20 mg DAILY PO ; Start 08/06/16 at 09:00; Stop 08/06/16 at 09:45; Status DC Erythromycin (E-Mycin) 250 mg BID PO Last administered on 08/09/16 09:13; Start 08/05/16 at 21:00 Escitalopram Oxalate (Lexapro) 20 mg DAILY PO Last administered on 08/09/16 09 :13; Start 08/06/16 at 09:00 Insulin Detemir (Levemir) 25 units QHS SQ Last administered on 08/08/16 20:59 ; Start 08/05/16 at 21:00 Insulin Aspart (Novolog) 15 units TIDWMEALS SQ ; Start 08/05/16 at 17:00; Stop at 17:00; Status DC Metolazone (Zaroxolyn) 5 mg DAILY PO Last administered on 08/09/16 09:13; Start 08/06/16 at 09:00 Multivitamins/ Calcium (Thera M Plus) 1 tab DAILY PO Last administered on 09:13; Start 08/06/16 at 09:00 Non-Formulary Medication 1 tab DAILY PO ; Start 08/06/16 at 09:00; Stop at 07:12; Status DC Fish Oil (Fish Oil) 1,000 mg DAILY PO Last administered on 08/09/16 09:13; Start 08/06/16 at 09:00 Ondansetron HCl (Zofran Odt) 4 mg PRN Q8HRS PRN PO NAUSEA/VOMITING; Start at 16:30 Losartan Potassium (Cozaar) 100 mg DAILY PO Last administered on 08/09/16 09: 15; Start 08/06/16 at 09:00 Folic Acid/ Multivitamins/Vit B12 (Nephro-Robert) 1 tab DAILY PO Last administered on 08/09/16 09:13; Start 08/06/16 at 09:00 Albuterol Sulfate (Ventolin Neb Soln) 2.5 mg PRN Q6HRS PRN NEB SHORTNESS OF BREATH; Start 08/05/16 at 16:30 Insulin Aspart (Novolog) 20 units TIDWMEALS SQ Last administered on 08/09/16 11:57; Start 08/05/16 at 17:00 Oxycodone/ Acetaminophen (Percocet 5/325) 1 tab PRN Q4HRS PRN PO PAIN SEVERE Last administered on 08/09/16 16:07; Start 08/05/16 at 17:15 Vancomycin HCl 1 each 1X ONCE MC Last administered on 08/06/16 06:00; Start 08/06/16 at 06:00; Stop 08/06/16 at 06:01; Status DC Insulin Aspart (Novolog) 20 units 1X ONCE SQ Last administered on 08/05/16 21: 00; Start 08/05/16 at 21:00; Stop 08/05/16 at 21:04; Status DC Vancomycin HCl 1 each 1X ONCE MC ; Start 08/07/16 at 06:00; Stop 08/07/16 at 06 :00; Status DC Aripiprazole (Abilify) 20 mg HS PO Last administered on 08/08/16 20:51; Start 08/06/16 at 21:00 Cyclobenzaprine HCl (Flexeril) 10 mg PRN DAILY PRN PO MUSCLE SPASMS Last administered on 08/07/16 14:46; Start 08/06/16 at 09:43 Darbepoetin Brendon (Aranesp) 100 mcg WEEKLYHS SQ Last administered on 08/06/16 22:09; Start 08/06/16 at 21:00 Heparin Sodium (Porcine) 10,000 unit STK-MED ONCE .ROUTE ; Start 08/06/16 at 12: 32; Stop 08/06/16 at 12:33; Status DC Lidocaine/ Epinephrine 20 ml 20 ml STK-MED ONCE .ROUTE ; Start 08/06/16 at 12:32 ; Stop 08/06/16 at 12:33; Status DC Heparin Sodium/ Sodium Chloride 500 ml @ As Directed STK-MED ONCE .ROUTE ; Start 08/06/16 at 12:32; Stop 08/06/16 at 12:33; Status DC Metoclopramide HCl (Reglan) 2.5 mg TIDBFRMEAL PO Last administered on 11:51; Start 08/06/16 at 16:30 Vancomycin HCl 1 each 1X ONCE MC ; Start 08/08/16 at 06:00; Stop 08/08/16 at 06 :00; Status DC Dextrose 25 gm STK-MED ONCE IV Last administered on 08/06/16 14:13; Start 04/12 at 14:10; Stop 08/06/16 at 14:11; Status DC Lidocaine/ Epinephrine (Xylocaine 1%-Epi 1:100,000) 3 ml 1X ONCE IJ Last administered on 08/06/16 14:43; Start 08/06/16 at 14:45; Stop 08/06/16 at 14:54 ; Status DC Heparin Sodium/ Sodium Chloride 50 unit 1X ONCE IV Last administered on 14:44; Start 08/06/16 at 14:45; Stop 08/06/16 at 14:54; Status DC Heparin Sodium (Porcine) 2,400 unit 1X ONCE INT CAT Last administered on 14:43; Start 08/06/16 at 14:45; Stop 08/06/16 at 14:54; Status DC Dextrose 12.5 gm PRN Q15MIN PRN IV SEE COMMENTS; Start 08/06/16 at 19:45 Heparin Sodium (Porcine) 2000 unit 2,000 unit 1X STAT IV Last administered on 08/07/16 09:41; Start 08/07/16 at 09:19; Stop 08/07/16 at 09:37; Status DC Sodium Chloride (Iv Sodium Chloride 0.9% 1000ml Bag) 1,000 ml @ 1,000 mls/hr Q1H PRN IV hypotension; Start 08/07/16 at 09:19; Stop 08/07/16 at 16:00; Status DC Diphenhydramine HCl (Benadryl) 25 mg 1X PRN PRN IV ITCHING; Start 08/07/16 at 09:30; Stop 08/07/16 at 16:00; Status DC Diphenhydramine HCl (Benadryl) 25 mg 1X PRN PRN IV ITCHING; Start 08/07/16 at 09:30; Stop 08/07/16 at 16:00; Status DC Sodium Chloride (Normal Saline Flush) 10 ml 1X PRN PRN IV AP catheter pack; Start 08/07/16 at 09:30; Stop 08/07/16 at 16:00; Status DC Sodium Chloride 10 ml 10 ml 1X PRN PRN IV ASSOCI[employer] ENGINE[employer]ING catheter pack; Start 08/07/16 at 09:30; Stop 08/07/16 at 16:00; Status DC Sodium Chloride (Iv Sodium Chloride 0.9% 1000ml Bag) 1,000 ml @ 400 mls/hr Q2H30M PRN IV PATENCY; Start 08/07/16 at 09:19; Stop 08/07/16 at 16:00; Status DC Info 1 each 1 each PRN DAILY PRN MC SEE COMMENTS; Start 08/07/16 at 09:30; Status UNV Cefazolin Sodium/ Sodium Chloride (Ancef/Iv Sodium Chloride 0.9% 50ml) 50 ml @ 100 mls/hr DAILY IV Last administered on 08/09/16 09:15; Start 08/07/16 at 16: 00; Stop 08/09/16 at 11:27; Status DC Acetaminophen 650 mg 650 mg PRN Q6HRS PRN PO MILD PAIN / TEMP Last administered on 08/09/16 16:08; Start 08/07/16 at 17:30 Vancomycin HCl/ Sodium Chloride (Iv Sodium Chloride 0.9% 250ml) 250 ml @ 250 mls/hr 1X ONCE IV Last administered on 08/08/16 16:00; Start 08/08/16 at 16: 00; Stop 08/08/16 at 16:59; Status DC Iohexol (Omnipaque 300 Mg/ml) 75 ml 1X ONCE IV Last administered on 08/09/16 08:59; Start 08/09/16 at 07:45; Stop 08/09/16 at 07:46; Status DC Iohexol 50 ml 50 ml 1X ONCE PO Last administered on 08/09/16 08:59; Start at 07:45; Stop 08/09/16 at 07:46; Status DC Piperacillin Sod/ Tazobactam Sod/ Sodium Chloride (Zosyn/Iv Sodium Chloride 0.9 % 50ml) 50 ml @ 100 mls/hr Q6HRS IV Last administered on 08/09/16 13:01; Start 08/09/16 at 12:00 Vancomycin HCl 1 each 1 each PRN DAILY PRN MC SEE COMMENTS; Start 08/09/16 at 11:30 Sodium Chloride 1,000 ml @ 1,000 mls/hr Q1H PRN IV hypotension; Start 08/09/16 at 13:30; Stop 08/09/16 at 19:29 Sodium Chloride (Iv Sodium Chloride 0.9% 1000ml Bag) 1,000 ml @ 400 mls/hr Q2H30M PRN IV PATENCY; Start 08/09/16 at 13:30; Stop 08/10/16 at 01:29 Info (PHARMACY MONITORING -- do not chart) 1 each PRN DAILY PRN MC SEE COMMENTS ; Start 08/09/16 at 15:45; Status UNV Active Scripts Active Miralax (Polyethylene Glycol 3350) 17 Gm Powd.pack 17 Gm PO PRN DAILY PRN Metoclopramide Hcl 10 Mg Tablet 10 Mg PO TIDBFRMEAL Reported Novolog (Insulin Aspart) 100 Unit/1 Ml Cartridge 20 Unit SQ TIDWMEALS Dionisio-Tab (Erythromycin Base) 250 Mg Tablet.dr 250 Mg PO BID Dialyvite 800 With Zinc (Vitamin B Comp W-C/Fa/Zinc) 0.8 Mg Tablet 0.8 Mg PO DAILY Escitalopram Oxalate 20 Mg Tablet 1 Tab PO DAILY Fish Oil ([place]-3 Fatty Acids) 300 Mg Capsule 300 Mg PO DAILY Colace (Docusate Sodium) 100 Mg Capsule 1 Cap PO DAILY Cyclobenzaprine Hcl 10 Mg Tablet 1 Tab PO DAILY Abilify (Aripiprazole) 20 Mg Tablet 20 Mg PO DAILY Lidoderm (Lidocaine) 700 Mg Adh..patch 1 Patch TP DAILY Percocet 5-325 Mg Tablet (Oxycodone/Acetaminophen) 1 Each Tablet 1 Tab PO PRN Q4 -6HRS PRN Metolazone 5 Mg Tablet 5 Mg PO DAILY Lamotrigine 100 Mg Tablet 1 Tab PO BID Valsartan 320 Mg Tablet 320 Mg PO DAILY Zofran (Ondansetron Hcl) 4 Mg Tablet 4 Mg PO TID PRN Essential Daily (Multivit With Calcium,Iron,Min) 1 Each Tablet 1 Each PO DAILY Lasix (Furosemide) 80 Mg Tablet 80 Mg PO TID Trinessa (Norgestimate-Ethinyl Estradiol) 1 Each Tablet 1 Tab PO DAILY Phoslo (Calcium Acetate) 667 Mg Capsule 1,334 Mg PO TIDWMEALS Proair Hfa Inhaler (Albuterol Sulfate) 8.5 Gm Hfa.aer.ad 1 Puff INH PRN Q6HRS PRN Hydralazine Hcl 50 Mg Tablet 1 Tab PO HS Tri-Sprintec (Norgestimate-Ethinyl Estradiol) 1 Each Tablet 1 Tab PO DAILY Hydrochlorothiazide Tablet (Hydrochlorothiazide) 25 Mg Tablet 1 Tab PO DAILY Labetalol Hcl 100 Mg Tablet 1 Tab PO BID Humalog Mix 75-25 Vial (Insulin Npl/Insulin Lispro) 100 Unit/1 Ml Vial 15 Unit SQ TIDAC Lantus Solostar (Insulin Glargine,Hum.rec.anlog) 100 Unit/1 Ml Insuln.pen 25 Unit SQ QHS Vitals/I & O Vital Sign - Last 24 Hours 08/08/16 08/08/16 08/08/16 08/08/16 17:04 18:15 18:15 20:18 Temp 102.0 102.0 102.0 102.0 Pulse Ox 97 O2 Delivery Room Air Room Air 08/08/16 08/08/16 08/08/16 08/08/16 20:53 20:54 21:04 23:00 Temp 97.7 97.7 Pulse 99 99 110 Resp 18 18 B/P 110/54 110/54 112/61 Pulse Ox 97 92 O2 Delivery Room Air Room Air 08/09/16 08/09/16 08/09/16 08/09/16 02:39 03:00 03:41 06:38 Temp 102.5 102.5 Pulse 124 Resp 18 18 18 B/P 131/57 Pulse Ox 92 92 92 92 O2 Delivery Room Air Room Air Room Air Room Air 08/09/16 08/09/16 08/09/16 08/09/16 07:57 08:00 09:14 09:15 Temp 97.5 97.5 Pulse 94 92 92 Resp 20 B/P 124/67 113/60 113/60 Pulse Ox 92 O2 Delivery Room Air Room Air 08/09/16 08/09/16 10:53 16:07 Temp 98.0 98.0 Pulse 88 Resp 20 16 B/P 103/54 Pulse Ox 92 O2 Delivery Room Air Room Air Intake and Output 08/08/16 08/08/16 08/09/16 15:00 23:00 07:00 Intake Total 840 ml 2320 ml 490 ml Output Total 300 ml 550 ml Balance 840 ml 2020 ml -60 ml CHARI KUO MD Aug 09, 2016 16:42
[2016-08-09 19:00] VITALS: BP 132/71
[2016-08-09] MEDS: VANCOMYCIN PER PHARMACY MC PRN (19:31)
[2016-08-09] MEDS ORDERED: VANCOMYCIN 1 GM in IV NORMAL SALINE 250ML 250 ML IV ONE (20:00)
[2016-08-09] MEDS: HYDRALAZINE 50 MG TABLET PO SCH (22:06)
[2016-08-09] MEDS: ARIPIPRAZOLE 5 MG TABLET. PO SCH (22:07)
[2016-08-09] MEDS: INSULIN DETEMIR 300 UNITS/3 ML INSULN.PEN. SQ SCH (22:42)
[2016-08-09 23:32] VITALS: BP 125/63
[2016-08-10] MEDS: PIPERACILLIN/TAZOBACTAM 2.25 GM in IV NORMAL SALINE 50ML 50 ML IV SCH ×4 (02:41→18:39)
[2016-08-10 03:00] VITALS: BP 104/59
[2016-08-10] MEDS: OXYCODONE/APAP 5/325 TABLET. PO PRN ×4 (05:53→22:36)
[2016-08-10] MEDS: HEPARIN PF for SUB-Q USE 5,000 UNIT/0.5 ML VIAL. SQ SCH ×3 (05:58→21:11)
[2016-08-10 06:43] LABS: BASO % 1 % (0-3); EOS % 2 % (0-3); LYMPH # 2.2 x10^3/uL (1.0-4.8); LYMPH % 32 % (24-48); MEAN CORPUSCULAR HEMOGLOBIN 31 pg (25-35); MEAN CORPUSCULAR HGB CONC 34 g/dL (31-37); MEAN CORPUSCULAR VOLUME 90 fL (79-100); MONO % 7 % (0-9); NEUT % 59 % (31-73); PLATELET COUNT 234 x10^3/uL (140-400); RED BLOOD COUNT 2.24 x10^6/uL (3.50-5.40)
[2016-08-10 06:47] LABS: HEMATOCRIT 20.2 % (36.0-47.0); HEMOGLOBIN 6.9 g/dL (12.0-15.5)
[2016-08-10 06:59] LABS: CALCIUM 8.6 mg/dL (8.5-10.1); CREATININE 4.6 mg/dL (0.6-1.0); GFR 11.4; POTASSIUM 4.3 mmol/L (3.5-5.1)
[2016-08-10 07:00] VITALS: BP 111/55
--- NOTE | 2016-08-10 08:30 | PDOC ---
PROGRESS NOTES Chief Complaint Chief Complaint Fevers Yu site infection ASSESSMENT AND PLAN: 1. Permacath infect: Yu d/c.ed, and replacement put in on 08/06. Cultures here with coag neg staph and GNR. prior wound cult with MSSA. ID service following. on Zosyn + Vanco 2. ESRD: on HD as per Dr Roxie Lassiter. on lasix 80 tid and Zaroxolyn 3. Hyponatremia: resolved 4. Hyperkalemia: resolved 5. Anemia: 2/2 ESRD. worsening, prob 2/2 inflammation/infection. on EPO, iron as per nephro. may need increase in EPO dose. discussed transfusions vs EPO with Dr Lindsay Lassiter 6. DM2: on long- and short-acting insulin, incl ISS. BG improved w/ increase in levemir 7. HTN: good control on current regimen 8. Bipolar D/O: cont home regimen with lexapro, abilify, lamotrigine 9. insomnia 10. Obesity, BMI 43 11. prophylaxis: heparin 12. Dispo: Vitals Vitals Vital Signs Date Time Temp Pulse Resp B/P Pulse Ox O2 Delivery O2 Flow Rate FiO2 08/10/16 07:00 98.0 85 17 111/55 93 Room Air 98.0 Physical Exam General: Alert, Oriented X3, Cooperative, No acute distress Heart: Regular rate, No murmurs Lungs: Clear Abdomen: Normal bowel sounds, Soft, No tenderness Extremities: No clubbing, No edema, Normal pulses Skin: Other (cath sites covered with gauze) Labs LABS Laboratory Tests Test 08/09/16 09:09 08/09/16 11:21 08/09/16 17:00 08/09/16 17:13 Glucose (Fingerstick) 240mg/dL (70-99) 317mg/dL (70-99) 161mg/dL (70-99) Random Vancomycin Level 10.9mcg/mL Test 08/09/16 22:22 08/10/16 06:25 08/10/16 07:30 Glucose (Fingerstick) 201mg/dL (70-99) 112mg/dL (70-99) White Blood Count 7.0x10^3/uL (4.0-11.0) Red Blood Count 2.24x10^6/uL (3.50-5.40) Hemoglobin 6.9g/dL (12.0-15.5) Hematocrit 20.2% (36.0-47.0) Mean Corpuscular Volume 90fL (79-100) Mean Corpuscular Hemoglobin 31pg (25-35) Mean Corpuscular Hemoglobin Concent 34g/dL (31-37) Red Cell Distribution Width 13.0% (11.5-14.5) Platelet Count 234x10^3/uL (140-400) Neutrophils (%) (Auto) 59% (31-73) Lymphocytes (%) (Auto) 32% (24-48) Monocytes (%) (Auto) 7% (0-9) Eosinophils (%) (Auto) 2% (0-3) Basophils (%) (Auto) 1% (0-3) Neutrophils # (Auto) 4.1x10^3uL (1.8-7.7) Lymphocytes # (Auto) 2.2x10^3/uL (1.0-4.8) Monocytes # (Auto) 0.5x10^3/uL (0.0-1.1) Eosinophils # (Auto) 0.1x10^3/uL (0.0-0.7) Basophils # (Auto) 0.0x10^3/uL (0.0-0.2) Sodium Level 141mmol/L (136-145) Potassium Level 4.3mmol/L (3.5-5.1) Chloride Level 102mmol/L (98-107) Carbon Dioxide Level 28mmol/L (21-32) Anion Gap 11 (6-14) Blood Urea Nitrogen 35mg/dL (7-20) Creatinine 4.6mg/dL (0.6-1.0) Estimated GFR (Cockcroft-Gault) 11.4 Glucose Level 133mg/dL (70-99) Calcium Level 8.6mg/dL (8.5-10.1) Review of Systems Review of Systems doing ok today. no pain. energy CHARI Garcia MD Aug 10, 2016 08:30
[2016-08-10] MEDS: LIDOCAINE (700MG/PATCH) PATCH. TP SCH (09:37)
[2016-08-10] MEDS: CALCIUM ACETATE 667 MG CAPSULE PO SCH ×3 (09:37→17:05)
[2016-08-10] MEDS: ESCITALOPRAM 10 MG TABLET. PO SCH (09:38)
[2016-08-10] MEDS: ERYTHROMYCIN BASE 250 MG TABLET PO SCH ×2 (09:38→20:55)
[2016-08-10] MEDS: OMEGA-3 FATTY ACIDS/FISH OIL 1,000 MG CAPSULE. PO SCH (09:38)
[2016-08-10] MEDS: lamoTRIgine 25 MG TABLET. PO SCH ×2 (09:38→20:55)
[2016-08-10] MEDS: FOLIC/VIT B COMP W-C (RENAL) TABLET. PO SCH (09:38)
[2016-08-10] MEDS: METOCLOPRAMIDE 5 MG TABLET PO SCH ×3 (09:40→17:05)
[2016-08-10] MEDS: METOLAZONE 2.5 MG TABLET PO SCH (09:41)
[2016-08-10] MEDS: MULTIVITAMIN with MINERAL TABLET. PO SCH (09:41)
[2016-08-10] MEDS: LOSARTAN POTASSIUM 50 MG TABLET. PO SCH (09:41)
[2016-08-10] MEDS: LABETALOL HCL 200 MG TABLET PO SCH ×2 (09:42→20:56)
[2016-08-10] MEDS: DOCUSATE SODIUM 100 MG CAPSULE PO SCH (09:43)
[2016-08-10] MEDS: FUROSEMIDE 80 MG TABLET PO SCH ×3 (09:43→20:56)
[2016-08-10] MEDS: INSULIN ASPART 300 UNITS/3 ML INSULN.PEN SQ SCH ×3 (09:50→17:16)
[2016-08-10 11:19] VITALS: BP 110/57
[2016-08-10] MEDS ORDERED: IV NORMAL SALINE 1000ML BAG 1,000 ML IV PRN ×2 (12:00)
--- NOTE | 2016-08-10 12:05 | PDOC ---
Infectious Disease Note Subjective Subjective feeling better ROS ROS GEN: Denies fevers, chills, sweats HEENT: Denies blurred vision, sore throat CV: Denies chest pain RESP: Denies shortness of air, cough GI: Denies n/v/d NEURO: Denies confusion, dizziness MSK: Denies weakness, joint pain/swelling Vital Sign Vital Signs Vital Signs Date Time Temp Pulse Resp B/P Pulse Ox O2 Delivery O2 Flow Rate FiO2 08/10/16 11:19 98.1 85 17 110/57 96 Room Air 98.1 Physical Exam PHYSICAL EXAM GENERAL: NAD, Alert HEENT: PERRL, OC/OP NECK: Supple, no JVD, no LN LUNGS: Clear HEART: S1S2, no gallop, no murmur ABD: Soft, NT, no organomegaly, no rebound EXT: No edema, no cyanosis ENROLLMENT REPRESENTATIVE: Alert, oriented x 3, no focal neurologic deficit SKIN: No rash IV: ok Labs Lab Laboratory Tests Test 08/09/16 17:00 08/09/16 17:13 08/09/16 22:22 08/10/16 06:25 Random Vancomycin Level 10.9mcg/mL Glucose (Fingerstick) 161mg/dL (70-99) 201mg/dL (70-99) White Blood Count 7.0x10^3/uL (4.0-11.0) Red Blood Count 2.24x10^6/uL (3.50-5.40) Hemoglobin 6.9g/dL (12.0-15.5) Hematocrit 20.2% (36.0-47.0) Mean Corpuscular Volume 90fL (79-100) Mean Corpuscular Hemoglobin 31pg (25-35) Mean Corpuscular Hemoglobin Concent 34g/dL (31-37) Red Cell Distribution Width 13.0% (11.5-14.5) Platelet Count 234x10^3/uL (140-400) Neutrophils (%) (Auto) 59% (31-73) Lymphocytes (%) (Auto) 32% (24-48) Monocytes (%) (Auto) 7% (0-9) Eosinophils (%) (Auto) 2% (0-3) Basophils (%) (Auto) 1% (0-3) Neutrophils # (Auto) 4.1x10^3uL (1.8-7.7) Lymphocytes # (Auto) 2.2x10^3/uL (1.0-4.8) Monocytes # (Auto) 0.5x10^3/uL (0.0-1.1) Eosinophils # (Auto) 0.1x10^3/uL (0.0-0.7) Basophils # (Auto) 0.0x10^3/uL (0.0-0.2) Sodium Level 141mmol/L (136-145) Potassium Level 4.3mmol/L (3.5-5.1) Chloride Level 102mmol/L (98-107) Carbon Dioxide Level 28mmol/L (21-32) Anion Gap 11 (6-14) Blood Urea Nitrogen 35mg/dL (7-20) Creatinine 4.6mg/dL (0.6-1.0) Estimated GFR (Cockcroft-Gault) 11.4 Glucose Level 133mg/dL (70-99) Calcium Level 8.6mg/dL (8.5-10.1) Test 08/10/16 07:30 08/10/16 11:07 Glucose (Fingerstick) 112mg/dL (70-99) 156mg/dL (70-99) Objective Assessment Fever Leukocytosis Staph infection - line. s/p HDC removal and temp replacement, 08/06. MSSA from 08/03 Tra. CKD on HD DM Contaminated Urine specimen Plan Plan of Care change to vanc and zosyn ct noted Repeat BC F/u cults and labs copy of micro from [facility] on chart d/w dr Lindsay Lassiter d/w FRACISCO Epstein MD Aug 10, 2016 12:05
--- NOTE | 2016-08-10 12:08 | PDOC ---
SUBJECTIVE ROS ESRD Feeling better overall, thinks she had a fever last pm too CVS: n Orthopnea, no CP RESP: no SOB, no CUI GI: min Nausea, occ Vomiting : no Dysuria, no Urgency OBJECTIVE Vital Signs Vital Signs Date Time Temp Pulse Resp B/P Pulse Ox O2 Delivery O2 Flow Rate FiO2 08/10/16 11:19 98.1 85 17 110/57 96 Room Air 98.1 I & 0 Intake and Output 08/10/16 07:00 Intake Total 590 ml Balance 590 ml Intake Oral 540 ml IV Total 50 ml # Voids 3 PHYSICAL EXAM Physical Exam GEN: Awake, Oriented x 3, In no distress EYES: Vision Unchanged, Conjunctiva Normal EN: No EN Drainage, Mucous Membranes moist NECK: no JVD, no JVP, Supple, no Thyromegaly CVS: S1S2, soft Murmur, No Gallop, No Rub,no pitting Edema RESP: no Rales, no Rhonchi,no Acc. Muscle Use GI: BS + ve, NO Bruit, Non Tender, Non Distended : no CVA tenderness, no Suprapubic Tenderness DIAGNOSIS/ASSESSMENT Assessment & Plan ESRD: Dialysis as below F 180 NR 3.5 Hrs 3 K 2.5 Ca 140 Na 35 HC03 Qb 350 + Qd 500+ Heparin 0 Units Uf 3-4 Kgs or to dry weight as tolerated May give 25-50 gms of 25% Albumin if needed to maintain Hemodynamic stability Treatment plan reviewed and discussed with food prep worker Subj Edema - Placed on Fluid restriction- Uf with HD as keke ANEMIA; Aranesp as ordered, will hold off of Blood Transfusion as long as we can due to txp Candidacy - discussed with Dr Cuello Febrile Illness - CT unrevealing, Bl Cx HTN: Current BP meds as reviewed. See orders for changes. RAFAELA/ BONE & MINERAL: Ct Present binder regimen and alter base d on PO intake Discussed Plan of Care with family () at bedside COMMENT/RELEVANT DATA Meds Current Medications Medications (Trade) Dose Ordered Sig/Sherine Start Time Stop Time Status Last Admin Dose Admin Acetaminophen (Tylenol) 650 mg PRN Q6HRS PRN 08/07/16 17:30 08/09/16 22:36 650 MG Acetaminophen 650 mg 650 mg PRN Q4HRS PRN 08/05/16 10:45 08/06/16 10:44 DC 08/05/16 11:56 650 MG Albuterol Sulfate (Ventolin Neb Soln) 2.5 mg PRN Q6HRS PRN 08/05/16 16:30 Aripiprazole (Abilify) 20 mg HS 08/06/16 21:00 08/09/16 22:07 20 MG Calcium Acetate (Phoslo) 1,334 mg TIDWMEALS 08/05/16 17:00 08/10/16 09:37 1,334 MG Cefazolin Sodium/ Sodium Chloride (Ancef/Iv Sodium Chloride 0.9% 50ml) 50 ml @ 100 mls/hr DAILY 08/07/16 16:00 08/09/16 11:27 DC 08/09/16 09:15 100 MLS/HR Cyclobenzaprine HCl (Flexeril) 10 mg PRN DAILY PRN 08/06/16 09:43 08/07/16 14:46 10 MG Darbepoetin Brendon (Aranesp) 100 mcg WEEKLYHS 08/06/16 21:00 08/06/16 22:09 100 MCG Dextrose 12.5 gm PRN Q15MIN PRN 08/06/16 19:45 Diphenhydramine HCl (Benadryl) 25 mg 1X PRN PRN 08/07/16 09:30 08/07/16 16:00 DC Docusate Sodium (Colace) 100 mg DAILY 08/06/16 09:00 08/10/16 09:43 100 MG Erythromycin (E-Mycin) 250 mg BID 08/05/16 21:00 08/10/16 09:38 250 MG Escitalopram Oxalate (Lexapro) 20 mg DAILY 08/06/16 09:00 08/10/16 09:38 20 MG Fish Oil (Fish Oil) 1,000 mg DAILY 08/06/16 09:00 08/10/16 09:38 1,000 MG Folic Acid/ Multivitamins/Vit B12 (Nephro-Robert) 1 tab DAILY 08/06/16 09:00 08/10/16 09:38 1 TAB Furosemide (Lasix) 80 mg TID 08/05/16 21:00 08/10/16 09:43 80 MG Heparin Sodium (Porcine) 2,000 unit 1X STAT 08/07/16 09:19 08/07/16 09:37 DC 08/07/16 09:41 2,000 UNIT Heparin Sodium/ Sodium Chloride 50 unit 1X ONCE 08/06/16 14:45 08/06/16 14:54 DC 08/06/16 14:44 50 UNIT Hydralazine HCl (Apresoline) 50 mg HS 08/05/16 21:00 08/09/16 22:06 50 MG Hydrochlorothiazide (Hydrodiuril) 25 mg DAILY 08/06/16 09:00 08/09/16 10:22 DC 08/09/16 09:14 25 MG Info (PHARMACY MONITORING -- do not chart) 1 each PRN DAILY PRN 08/09/16 15:45 UNV Info 1 each 1 each PRN DAILY PRN 08/07/16 09:30 UNV Insulin Aspart (Novolog) 20 units 1X ONCE 08/05/16 21:00 08/05/16 21:04 DC 08/05/16 21:00 20 UNITS Insulin Detemir (Levemir) 25 units QHS 08/05/16 21:00 08/09/16 18:50 DC 08/08/16 20:59 25 UNITS Insulin Detemir 30 units 30 units QHS 08/09/16 21:00 08/09/16 22:42 30 UNITS Iohexol (Omnipaque 300 Mg/ml) 75 ml 1X ONCE 08/09/16 07:45 08/09/16 07:46 DC 08/09/16 08:59 75 ML Iohexol 50 ml 50 ml 1X ONCE 08/09/16 07:45 08/09/16 07:46 DC 08/09/16 08:59 50 ML Labetalol HCl (Trandate) 100 mg BID 08/05/16 21:00 08/10/16 09:42 100 MG Lamotrigine (LaMICtal) 100 mg BID 08/05/16 21:00 08/10/16 09:38 100 MG Lidocaine (Lidoderm) 1 patch DAILY 08/06/16 09:00 08/10/16 09:37 1 PATCH Lidocaine/ Epinephrine (Xylocaine 1%-Epi 1:100,000) 3 ml 1X ONCE 08/06/16 14:45 08/06/16 14:54 DC 08/06/16 14:43 3 ML Losartan Potassium (Cozaar) 100 mg DAILY 08/06/16 09:00 08/10/16 09:41 100 MG Metoclopramide HCl (Reglan) 2.5 mg TIDBFRMEAL 08/06/16 16:30 08/10/16 09:40 2.5 MG Metolazone (Zaroxolyn) 5 mg DAILY 08/06/16 09:00 08/10/16 09:41 5 MG Multivitamins/ Calcium (Thera M Plus) 1 tab DAILY 08/06/16 09:00 08/10/16 09:41 1 TAB Non-Formulary Medication 1 tab DAILY 08/06/16 09:00 08/07/16 07:12 DC Ondansetron HCl (Zofran Odt) 4 mg PRN Q8HRS PRN 08/05/16 16:30 Ondansetron HCl (Zofran) 4 mg PRN Q8HRS PRN 08/05/16 10:45 08/06/16 10:44 DC Oxycodone/ Acetaminophen (Percocet 5/325) 1 tab PRN Q4HRS PRN 08/05/16 17:15 08/10/16 05:53 1 TAB Piperacillin Sod/ Tazobactam Sod/ Sodium Chloride (Zosyn/Iv Sodium Chloride 0.9% 50ml) 50 ml @ 100 mls/hr Q6HRS 08/09/16 12:00 08/10/16 05:48 100 MLS/HR Polyethylene Glycol (miraLAX PACKET) 17 gm PRN DAILY PRN 08/05/16 16:15 Sodium Chloride (Iv Sodium Chloride 0.9% 1000ml Bag) 1,000 ml @ 400 mls/hr Q2H30M PRN 08/09/16 13:30 08/10/16 01:29 DC Sodium Chloride (Normal Saline Flush) 10 ml 1X PRN PRN 08/07/16 09:30 08/07/16 16:00 DC Vancomycin HCl 1 each 1X ONCE 08/08/16 06:00 08/08/16 06:00 DC Vancomycin HCl (Vanco Per Pharmacy) 1 each PRN DAILY PRN 08/05/16 16:15 08/07/16 15:25 DC 08/06/16 13:14 1 EACH Vancomycin HCl 1 each 1 each PRN DAILY PRN 08/09/16 11:30 08/09/16 19:31 1 EACH Vancomycin HCl 1 gm/Sodium Chloride 250 ml @ 250 mls/hr 1X ONCE 08/09/16 20:00 08/09/16 20:59 DC 08/10/16 00:03 250 MLS/HR Vancomycin HCl/ Sodium Chloride (Iv Sodium Chloride 0.9% 250ml) 250 ml @ 250 mls/hr TuThSa 08/10/16 18:00 Vancomycin HCl/ Sodium Chloride (Iv Sodium Chloride 0.9% 500ml Bag) 500 ml @ 250 mls/hr 1X ONCE 08/05/16 11:00 08/05/16 12:59 DC 08/05/16 10:56 250 MLS/HR Lab Laboratory Tests Test 08/09/16 17:00 08/09/16 17:13 08/09/16 22:22 08/10/16 06:25 Random Vancomycin Level 10.9mcg/mL Glucose (Fingerstick) 161mg/dL (70-99) 201mg/dL (70-99) White Blood Count 7.0x10^3/uL (4.0-11.0) Red Blood Count 2.24x10^6/uL (3.50-5.40) Hemoglobin 6.9g/dL (12.0-15.5) Hematocrit 20.2% (36.0-47.0) Mean Corpuscular Volume 90fL (79-100) Mean Corpuscular Hemoglobin 31pg (25-35) Mean Corpuscular Hemoglobin Concent 34g/dL (31-37) Red Cell Distribution Width 13.0% (11.5-14.5) Platelet Count 234x10^3/uL (140-400) Neutrophils (%) (Auto) 59% (31-73) Lymphocytes (%) (Auto) 32% (24-48) Monocytes (%) (Auto) 7% (0-9) Eosinophils (%) (Auto) 2% (0-3) Basophils (%) (Auto) 1% (0-3) Neutrophils # (Auto) 4.1x10^3uL (1.8-7.7) Lymphocytes # (Auto) 2.2x10^3/uL (1.0-4.8) Monocytes # (Auto) 0.5x10^3/uL (0.0-1.1) Eosinophils # (Auto) 0.1x10^3/uL (0.0-0.7) Basophils # (Auto) 0.0x10^3/uL (0.0-0.2) Sodium Level 141mmol/L (136-145) Potassium Level 4.3mmol/L (3.5-5.1) Chloride Level 102mmol/L (98-107) Carbon Dioxide Level 28mmol/L (21-32) Anion Gap 11 (6-14) Blood Urea Nitrogen 35mg/dL (7-20) Creatinine 4.6mg/dL (0.6-1.0) Estimated GFR (Cockcroft-Gault) 11.4 Glucose Level 133mg/dL (70-99) Calcium Level 8.6mg/dL (8.5-10.1) Test 08/10/16 07:30 08/10/16 11:07 Glucose (Fingerstick) 112mg/dL (70-99) 156mg/dL (70-99) EDWARD MOTA MD Aug 10, 2016 12:08
[2016-08-10] MEDS: VANCOMYCIN PER PHARMACY MC PRN (13:03)
[2016-08-10] MEDS ORDERED: DIALYSIS PATIENT. MC PRN (13:15)
[2016-08-10] MEDS: CYCLOBENZAPRINE 10 MG TABLET. PO PRN (15:56)
[2016-08-10] MEDS ORDERED: VANCOMYCIN 1 GM in IV NORMAL SALINE 250ML 250 ML IV SCH (18:00)
[2016-08-10 18:33] VITALS: BP 104/102
[2016-08-10 19:00] VITALS: BP 101/57
[2016-08-10] MEDS: ARIPIPRAZOLE 5 MG TABLET. PO SCH (20:48)
[2016-08-10] MEDS: HYDRALAZINE 50 MG TABLET PO SCH (20:57)
[2016-08-10] MEDS: INSULIN DETEMIR 300 UNITS/3 ML INSULN.PEN. SQ SCH (21:34)
[2016-08-10 23:00] VITALS: BP 119/53
[2016-08-11] MEDS: PIPERACILLIN/TAZOBACTAM 2.25 GM in IV NORMAL SALINE 50ML 50 ML IV SCH ×4 (00:45→18:28)
[2016-08-11 03:00] VITALS: BP 99/56
[2016-08-11] MEDS: HEPARIN PF for SUB-Q USE 5,000 UNIT/0.5 ML VIAL. SQ SCH ×3 (06:00→20:58)
[2016-08-11 06:05] LABS: BASO % 1 % (0-3); EOS % 2 % (0-3); HEMATOCRIT 21.7 % (36.0-47.0); HEMOGLOBIN 7.5 g/dL (12.0-15.5); LYMPH % 28 % (24-48); MEAN CORPUSCULAR HEMOGLOBIN 32 pg (25-35); MEAN CORPUSCULAR HGB CONC 34 g/dL (31-37); MEAN CORPUSCULAR VOLUME 92 fL (79-100); MONO % 6 % (0-9); NEUT % 64 % (31-73); PLATELET COUNT 268 x10^3/uL (140-400); RED BLOOD COUNT 2.36 x10^6/uL (3.50-5.40); RED CELL DISTRIBUTION WIDTH 13.2 % (11.5-14.5); WHITE BLOOD COUNT 7.2 x10^3/uL (4.0-11.0)
[2016-08-11] MEDS: OXYCODONE/APAP 5/325 TABLET. PO PRN ×3 (06:16→21:06)
[2016-08-11 06:29] LABS: CALCIUM 8.5 mg/dL (8.5-10.1); CREATININE 5.6 mg/dL (0.6-1.0); GFR 9.1
[2016-08-11 07:00] VITALS: BP 115/58
[2016-08-11] MEDS: METOCLOPRAMIDE 5 MG TABLET PO SCH ×3 (08:05→17:08)
[2016-08-11] MEDS: INSULIN ASPART 300 UNITS/3 ML INSULN.PEN SQ SCH ×3 (08:09→17:13)
[2016-08-11] MEDS: DOCUSATE SODIUM 100 MG CAPSULE PO SCH (09:00)
[2016-08-11] MEDS: lamoTRIgine 25 MG TABLET. PO SCH ×2 (09:00→20:49)
[2016-08-11] MEDS: ESCITALOPRAM 10 MG TABLET. PO SCH (09:02)
[2016-08-11] MEDS: FOLIC/VIT B COMP W-C (RENAL) TABLET. PO SCH (09:03)
[2016-08-11] MEDS: CALCIUM ACETATE 667 MG CAPSULE PO SCH ×3 (09:03→17:08)
[2016-08-11] MEDS: METOLAZONE 2.5 MG TABLET PO SCH (09:03)
[2016-08-11] MEDS: ERYTHROMYCIN BASE 250 MG TABLET PO SCH ×2 (09:03→20:49)
[2016-08-11] MEDS: MULTIVITAMIN with MINERAL TABLET. PO SCH (09:03)
[2016-08-11] MEDS: FUROSEMIDE 80 MG TABLET PO SCH ×3 (09:03→20:49)
[2016-08-11] MEDS: OMEGA-3 FATTY ACIDS/FISH OIL 1,000 MG CAPSULE. PO SCH (09:03)
[2016-08-11] MEDS: LABETALOL HCL 200 MG TABLET PO SCH ×2 (09:04→20:52)
[2016-08-11] MEDS: LIDOCAINE (700MG/PATCH) PATCH. TP SCH (09:05)
[2016-08-11] MEDS: LOSARTAN POTASSIUM 50 MG TABLET. PO SCH (09:05)
[2016-08-11 11:17] VITALS: BP 119/62
--- NOTE | 2016-08-11 11:18 | PDOC ---
Infectious Disease Note Subjective Subjective feeling better ROS ROS GEN: Denies fevers, chills, sweats HEENT: Denies blurred vision, sore throat CV: Denies chest pain RESP: Denies shortness of air, cough GI: Denies n/v/d NEURO: Denies confusion, dizziness MSK: Denies weakness, joint pain/swelling Vital Sign Vital Signs Vital Signs Date Time Temp Pulse Resp B/P Pulse Ox O2 Delivery O2 Flow Rate FiO2 08/11/16 09:05 93 115/58 08/11/16 08:10 Room Air 08/11/16 07:20 19 92 08/11/16 07:00 97.5 97.5 Physical Exam PHYSICAL EXAM GENERAL: NAD, Alert HEENT: PERRL, OC/OP NECK: Supple, no JVD, no LN LUNGS: Clear HEART: S1S2, no gallop, no murmur ABD: Soft, NT, no organomegaly, no rebound EXT: No edema, no cyanosis HEEL PADDER: Alert, oriented x 3, no focal neurologic deficit SKIN: No rash IV: ok Labs Lab Laboratory Tests Test 08/10/16 16:55 08/10/16 21:13 08/11/16 05:14 08/11/16 07:11 Glucose (Fingerstick) 239mg/dL (70-99) 281mg/dL (70-99) 202mg/dL (70-99) White Blood Count 7.2x10^3/uL (4.0-11.0) Red Blood Count 2.36x10^6/uL (3.50-5.40) Hemoglobin 7.5g/dL (12.0-15.5) Hematocrit 21.7% (36.0-47.0) Mean Corpuscular Volume 92fL (79-100) Mean Corpuscular Hemoglobin 32pg (25-35) Mean Corpuscular Hemoglobin Concent 34g/dL (31-37) Red Cell Distribution Width 13.2% (11.5-14.5) Platelet Count 268x10^3/uL (140-400) Neutrophils (%) (Auto) 64% (31-73) Lymphocytes (%) (Auto) 28% (24-48) Monocytes (%) (Auto) 6% (0-9) Eosinophils (%) (Auto) 2% (0-3) Basophils (%) (Auto) 1% (0-3) Neutrophils # (Auto) 4.6x10^3uL (1.8-7.7) Lymphocytes # (Auto) 2.0x10^3/uL (1.0-4.8) Monocytes # (Auto) 0.4x10^3/uL (0.0-1.1) Eosinophils # (Auto) 0.2x10^3/uL (0.0-0.7) Basophils # (Auto) 0.0x10^3/uL (0.0-0.2) Sodium Level 140mmol/L (136-145) Potassium Level 4.0mmol/L (3.5-5.1) Chloride Level 100mmol/L (98-107) Carbon Dioxide Level 27mmol/L (21-32) Anion Gap 13 (6-14) Blood Urea Nitrogen 35mg/dL (7-20) Creatinine 5.6mg/dL (0.6-1.0) Estimated GFR (Cockcroft-Gault) 9.1 Glucose Level 212mg/dL (70-99) Calcium Level 8.5mg/dL (8.5-10.1) Micro Eikenella corrodens Objective Assessment Fever Leukocytosis Staph infection - line. s/p HDC removal and temp replacement, 08/06. MSSA from 08/03 Tra. CKD on HD DM Contaminated Urine specimen Plan Plan of Care change to vanc and zosyn ct noted Repeat BC F/u cults and labs copy of micro from Tra on chart ok to do permacath tomorrow if bc remains neg FRACISCO MOTA MD Aug 11, 2016 11:17
--- NOTE | 2016-08-11 12:23 | PDOC ---
PROGRESS NOTES Chief Complaint Chief Complaint sepsis Yu site infection ASSESSMENT AND PLAN: 1. Permacath infect: Yu d/c.ed, and replacement put in on 08/06. Cultures here with coag neg staph and GNR. prior wound cult with MSSA. ID service following. on Zosyn + Vanco 2. ESRD: on HD as per Dr Roxie Lassiter. on lasix 80 tid and Zaroxolyn 3. Hyponatremia: resolved 4. Hyperkalemia: resolved 5. Anemia: 2/2 ESRD. worsening, prob 2/2 inflammation/infection. on EPO, iron as per nephro. may need increase in EPO dose. discussed transfusions vs EPO with Dr Lindsay Lassiter 6. DM2: on long- and short-acting insulin, incl ISS. BG improved w/ increase in levemir 7. HTN: good control on current regimen 8. Bipolar D/O: cont home regimen with lexapro, abilify, lamotrigine 9. insomnia 10. Obesity, BMI 43 11. prophylaxis: heparin 12. Dispo: History of Present Illness History of Present Illness she discussed today severe pain when prior permacath placed at the access center , will discuss with IR Vitals Vitals Vital Signs Date Time Temp Pulse Resp B/P Pulse Ox O2 Delivery O2 Flow Rate FiO2 08/11/16 11:17 98.0 98 18 119/62 96 Room Air 98.0 Physical Exam General: Alert, Oriented X3, Cooperative, No acute distress Heart: Regular rate, No murmurs Lungs: Clear Abdomen: Normal bowel sounds, Soft, No tenderness Extremities: No clubbing, No edema, Normal pulses Skin: No rashes, No breakdown, Other (cath sites covered with gauze) Labs LABS Laboratory Tests Test 08/10/16 16:55 08/10/16 21:13 08/11/16 05:14 08/11/16 07:11 Glucose (Fingerstick) 239mg/dL (70-99) 281mg/dL (70-99) 202mg/dL (70-99) White Blood Count 7.2x10^3/uL (4.0-11.0) Red Blood Count 2.36x10^6/uL (3.50-5.40) Hemoglobin 7.5g/dL (12.0-15.5) Hematocrit 21.7% (36.0-47.0) Mean Corpuscular Volume 92fL (79-100) Mean Corpuscular Hemoglobin 32pg (25-35) Mean Corpuscular Hemoglobin Concent 34g/dL (31-37) Red Cell Distribution Width 13.2% (11.5-14.5) Platelet Count 268x10^3/uL (140-400) Neutrophils (%) (Auto) 64% (31-73) Lymphocytes (%) (Auto) 28% (24-48) Monocytes (%) (Auto) 6% (0-9) Eosinophils (%) (Auto) 2% (0-3) Basophils (%) (Auto) 1% (0-3) Neutrophils # (Auto) 4.6x10^3uL (1.8-7.7) Lymphocytes # (Auto) 2.0x10^3/uL (1.0-4.8) Monocytes # (Auto) 0.4x10^3/uL (0.0-1.1) Eosinophils # (Auto) 0.2x10^3/uL (0.0-0.7) Basophils # (Auto) 0.0x10^3/uL (0.0-0.2) Sodium Level 140mmol/L (136-145) Potassium Level 4.0mmol/L (3.5-5.1) Chloride Level 100mmol/L (98-107) Carbon Dioxide Level 27mmol/L (21-32) Anion Gap 13 (6-14) Blood Urea Nitrogen 35mg/dL (7-20) Creatinine 5.6mg/dL (0.6-1.0) Estimated GFR (Cockcroft-Gault) 9.1 Glucose Level 212mg/dL (70-99) Calcium Level 8.5mg/dL (8.5-10.1) Test 08/11/16 11:24 Glucose (Fingerstick) 208mg/dL (70-99) Review of Systems Review of Systems no n.v.d Assessment and Plan Assessmemt and Plan cont current permacath soon Problems Medical Problems: (1) Fever Status: Acute Problems: Comment Review of Relevant I have reviewed the following items kathya (where applicable) has been applied. Labs Laboratory Tests Test 08/09/16 17:00 2/13/17 17:13 08/09/16 22:22 08/10/16 06:25 Random Vancomycin Level 10.9mcg/mL Glucose (Fingerstick) 161mg/dL (70-99) 201mg/dL (70-99) White Blood Count 7.0x10^3/uL (4.0-11.0) Red Blood Count 2.24x10^6/uL (3.50-5.40) Hemoglobin 6.9g/dL (12.0-15.5) Hematocrit 20.2% (36.0-47.0) Mean Corpuscular Volume 90fL (79-100) Mean Corpuscular Hemoglobin 31pg (25-35) Mean Corpuscular Hemoglobin Concent 34g/dL (31-37) Red Cell Distribution Width 13.0% (11.5-14.5) Platelet Count 234x10^3/uL (140-400) Neutrophils (%) (Auto) 59% (31-73) Lymphocytes (%) (Auto) 32% (24-48) Monocytes (%) (Auto) 7% (0-9) Eosinophils (%) (Auto) 2% (0-3) Basophils (%) (Auto) 1% (0-3) Neutrophils # (Auto) 4.1x10^3uL (1.8-7.7) Lymphocytes # (Auto) 2.2x10^3/uL (1.0-4.8) Monocytes # (Auto) 0.5x10^3/uL (0.0-1.1) Eosinophils # (Auto) 0.1x10^3/uL (0.0-0.7) Basophils # (Auto) 0.0x10^3/uL (0.0-0.2) Sodium Level 141mmol/L (136-145) Potassium Level 4.3mmol/L (3.5-5.1) Chloride Level 102mmol/L (98-107) Carbon Dioxide Level 28mmol/L (21-32) Anion Gap 11 (6-14) Blood Urea Nitrogen 35mg/dL (7-20) Creatinine 4.6mg/dL (0.6-1.0) Estimated GFR (Cockcroft-Gault) 11.4 Glucose Level 133mg/dL (70-99) Calcium Level 8.6mg/dL (8.5-10.1) Test 08/10/16 07:30 08/10/16 11:07 08/10/16 16:55 08/10/16 21:13 Glucose (Fingerstick) 112mg/dL (70-99) 156mg/dL (70-99) 239mg/dL (70-99) 281mg/dL (70-99) Test 08/11/16 05:14 08/11/16 07:11 08/11/16 11:24 White Blood Count 7.2x10^3/uL (4.0-11.0) Red Blood Count 2.36x10^6/uL (3.50-5.40) Hemoglobin 7.5g/dL (12.0-15.5) Hematocrit 21.7% (36.0-47.0) Mean Corpuscular Volume 92fL (79-100) Mean Corpuscular Hemoglobin 32pg (25-35) Mean Corpuscular Hemoglobin Concent 34g/dL (31-37) Red Cell Distribution Width 13.2% (11.5-14.5) Platelet Count 268x10^3/uL (140-400) Neutrophils (%) (Auto) 64% (31-73) Lymphocytes (%) (Auto) 28% (24-48) Monocytes (%) (Auto) 6% (0-9) Eosinophils (%) (Auto) 2% (0-3) Basophils (%) (Auto) 1% (0-3) Neutrophils # (Auto) 4.6x10^3uL (1.8-7.7) Lymphocytes # (Auto) 2.0x10^3/uL (1.0-4.8) Monocytes # (Auto) 0.4x10^3/uL (0.0-1.1) Eosinophils # (Auto) 0.2x10^3/uL (0.0-0.7) Basophils # (Auto) 0.0x10^3/uL (0.0-0.2) Sodium Level 140mmol/L (136-145) Potassium Level 4.0mmol/L (3.5-5.1) Chloride Level 100mmol/L (98-107) Carbon Dioxide Level 27mmol/L (21-32) Anion Gap 13 (6-14) Blood Urea Nitrogen 35mg/dL (7-20) Creatinine 5.6mg/dL (0.6-1.0) Estimated GFR (Cockcroft-Gault) 9.1 Glucose Level 212mg/dL (70-99) Calcium Level 8.5mg/dL (8.5-10.1) Glucose (Fingerstick) 202mg/dL (70-99) 208mg/dL (70-99) Laboratory Tests Test 08/10/16 16:55 08/10/16 21:13 08/11/16 05:14 08/11/16 07:11 Glucose (Fingerstick) 239mg/dL (70-99) 281mg/dL (70-99) 202mg/dL (70-99) White Blood Count 7.2x10^3/uL (4.0-11.0) Red Blood Count 2.36x10^6/uL (3.50-5.40) Hemoglobin 7.5g/dL (12.0-15.5) Hematocrit 21.7% (36.0-47.0) Mean Corpuscular Volume 92fL (79-100) Mean Corpuscular Hemoglobin 32pg (25-35) Mean Corpuscular Hemoglobin Concent 34g/dL (31-37) Red Cell Distribution Width 13.2% (11.5-14.5) Platelet Count 268x10^3/uL (140-400) Neutrophils (%) (Auto) 64% (31-73) Lymphocytes (%) (Auto) 28% (24-48) Monocytes (%) (Auto) 6% (0-9) Eosinophils (%) (Auto) 2% (0-3) Basophils (%) (Auto) 1% (0-3) Neutrophils # (Auto) 4.6x10^3uL (1.8-7.7) Lymphocytes # (Auto) 2.0x10^3/uL (1.0-4.8) Monocytes # (Auto) 0.4x10^3/uL (0.0-1.1) Eosinophils # (Auto) 0.2x10^3/uL (0.0-0.7) Basophils # (Auto) 0.0x10^3/uL (0.0-0.2) Sodium Level 140mmol/L (136-145) Potassium Level 4.0mmol/L (3.5-5.1) Chloride Level 100mmol/L (98-107) Carbon Dioxide Level 27mmol/L (21-32) Anion Gap 13 (6-14) Blood Urea Nitrogen 35mg/dL (7-20) Creatinine 5.6mg/dL (0.6-1.0) Estimated GFR (Cockcroft-Gault) 9.1 Glucose Level 212mg/dL (70-99) Calcium Level 8.5mg/dL (8.5-10.1) Test 08/11/16 11:24 Glucose (Fingerstick) 208mg/dL (70-99) Microbiology 08/09/16 Blood Culture - Preliminary, Resulted NO GROWTH AFTER 2 DAYS 08/06/16 Urine Culture - Final, Complete 08/06/16 Urine Culture Result 1 (PEGGY) - Final, Complete 08/06/16 Gram Stain - Final, Complete Medications Current Medications Ondansetron HCl (Zofran) 4 mg PRN Q8HRS PRN IV NAUSEA/VOMITING; Start 08/05/16 at 10:45; Stop 08/06/16 at 10:44; Status DC Acetaminophen (Tylenol) 650 mg PRN Q4HRS PRN PO FEVER Last administered on 11:56; Start 08/05/16 at 10:45; Stop 08/06/16 at 10:44; Status DC Vancomycin HCl 1 each 1 each PRN DAILY PRN MC SEE COMMENTS; Start 08/05/16 at 10 :45; Stop 08/05/16 at 16:16; Status DC Vancomycin HCl/ Sodium Chloride (Iv Sodium Chloride 0.9% 500ml Bag) 500 ml @ 250 mls/hr 1X ONCE IV Last administered on 08/05/16 10:56; Start 08/05/16 at 11 :00; Stop 08/05/16 at 12:59; Status DC Info (PHARMACY MONITORING -- do not chart) 1 each PRN DAILY PRN MC SEE COMMENTS ; Start 08/05/16 at 15:15 Heparin Sodium (Porcine) 5,000 unit Q8HRS SQ Last administered on 08/10/16 21: 11; Start 08/05/16 at 22:00 Vancomycin HCl (Vanco Per Pharmacy) 1 each PRN DAILY PRN MC SEE COMMENTS Last administered on 08/06/16 13:14; Start 08/05/16 at 16:15; Stop 08/07/16 at 15:25 ; Status DC Calcium Acetate (Phoslo) 1,334 mg TIDWMEALS PO Last administered on 08/11/16 09:03; Start 08/05/16 at 17:00 Cyclobenzaprine HCl (Flexeril) 10 mg DAILY PO ; Start 08/06/16 at 09:00; Stop at 09:45; Status DC Docusate Sodium (Colace) 100 mg DAILY PO Last administered on 08/10/16 09:43; Start 08/06/16 at 09:00 Furosemide (Lasix) 80 mg TID PO Last administered on 08/11/16 09:03; Start 08/05/16 at 21:00 Hydralazine HCl (Apresoline) 50 mg HS PO Last administered on 08/09/16 22:06; Start 08/05/16 at 21:00 Hydrochlorothiazide (Hydrodiuril) 25 mg DAILY PO Last administered on 09:14; Start 08/06/16 at 09:00; Stop 08/09/16 at 10:22; Status DC Labetalol HCl (Trandate) 100 mg BID PO Last administered on 08/11/16 09:04; Start 08/05/16 at 21:00 Lamotrigine (LaMICtal) 100 mg BID PO Last administered on 08/10/16 20:55; Start 08/05/16 at 21:00 Lidocaine (Lidoderm) 1 patch DAILY TP Last administered on 08/11/16 09:05; Start 08/06/16 at 09:00 Metoclopramide HCl (Reglan) 10 mg TIDBFRMEAL PO ; Start 08/05/16 at 16:30; Stop 08/06/16 at 13:00; Status DC Polyethylene Glycol (miraLAX PACKET) 17 gm PRN DAILY PRN PO CONSTIPATION 1ST CHOICE; Start 08/05/16 at 16:15 Non-Formulary Medication 1 puff PRN Q6HRS PRN INH SHORTNESS OF BREATH; Start at 16:15; Status UNV Aripiprazole (Abilify) 20 mg DAILY PO ; Start 08/06/16 at 09:00; Stop 08/06/16 at 09:45; Status DC Erythromycin (E-Mycin) 250 mg BID PO Last administered on 08/11/16 09:03; Start 08/05/16 at 21:00 Escitalopram Oxalate (Lexapro) 20 mg DAILY PO Last administered on 08/11/16 09 :02; Start 08/06/16 at 09:00 Insulin Detemir (Levemir) 25 units QHS SQ Last administered on 08/08/16 20:59 ; Start 08/05/16 at 21:00; Stop 08/09/16 at 18:50; Status DC Insulin Aspart (Novolog) 15 units TIDWMEALS SQ ; Start 08/05/16 at 17:00; Stop at 17:00; Status DC Metolazone (Zaroxolyn) 5 mg DAILY PO Last administered on 08/11/16 09:03; Start 08/06/16 at 09:00 Multivitamins/ Calcium (Thera M Plus) 1 tab DAILY PO Last administered on 09:03; Start 08/06/16 at 09:00 Non-Formulary Medication 1 tab DAILY PO ; Start 08/06/16 at 09:00; Stop at 07:12; Status DC Fish Oil (Fish Oil) 1,000 mg DAILY PO Last administered on 08/11/16 09:03; Start 08/06/16 at 09:00 Ondansetron HCl (Zofran Odt) 4 mg PRN Q8HRS PRN PO NAUSEA/VOMITING; Start at 16:30 Losartan Potassium (Cozaar) 100 mg DAILY PO Last administered on 08/11/16 09: 05; Start 08/06/16 at 09:00 Folic Acid/ Multivitamins/Vit B12 (Nephro-Robert) 1 tab DAILY PO Last administered on 08/10/16 09:38; Start 08/06/16 at 09:00 Albuterol Sulfate (Ventolin Neb Soln) 2.5 mg PRN Q6HRS PRN NEB SHORTNESS OF BREATH; Start 08/05/16 at 16:30 Insulin Aspart (Novolog) 20 units TIDWMEALS SQ Last administered on 08/11/16 08:09; Start 08/05/16 at 17:00 Oxycodone/ Acetaminophen (Percocet 5/325) 1 tab PRN Q4HRS PRN PO PAIN SEVERE Last administered on 08/11/16 06:16; Start 08/05/16 at 17:15 Vancomycin HCl 1 each 1X ONCE MC Last administered on 08/06/16 06:00; Start 08/06/16 at 06:00; Stop 08/06/16 at 06:01; Status DC Insulin Aspart (Novolog) 20 units 1X ONCE SQ Last administered on 08/05/16 21: 00; Start 08/05/16 at 21:00; Stop 08/05/16 at 21:04; Status DC Vancomycin HCl 1 each 1X ONCE MC ; Start 08/07/16 at 06:00; Stop 08/07/16 at 06 :00; Status DC Aripiprazole (Abilify) 20 mg HS PO Last administered on 08/10/16 20:48; Start 08/06/16 at 21:00 Cyclobenzaprine HCl (Flexeril) 10 mg PRN DAILY PRN PO MUSCLE SPASMS Last administered on 08/10/16 15:56; Start 08/06/16 at 09:43 Darbepoetin Brendon (Aranesp) 100 mcg WEEKLYHS SQ Last administered on 08/06/16 22:09; Start 08/06/16 at 21:00 Heparin Sodium (Porcine) 10,000 unit STK-MED ONCE .ROUTE ; Start 08/06/16 at 12: 32; Stop 08/06/16 at 12:33; Status DC Lidocaine/ Epinephrine 20 ml 20 ml STK-MED ONCE .ROUTE ; Start 08/06/16 at 12:32 ; Stop 08/06/16 at 12:33; Status DC Heparin Sodium/ Sodium Chloride 500 ml @ As Directed STK-MED ONCE .ROUTE ; Start 08/06/16 at 12:32; Stop 08/06/16 at 12:33; Status DC Metoclopramide HCl (Reglan) 2.5 mg TIDBFRMEAL PO Last administered on 08:05; Start 08/06/16 at 16:30 Vancomycin HCl 1 each 1X ONCE MC ; Start 08/08/16 at 06:00; Stop 08/08/16 at 06 :00; Status DC Dextrose 25 gm STK-MED ONCE IV Last administered on 08/06/16 14:13; Start 04/12 at 14:10; Stop 08/06/16 at 14:11; Status DC Lidocaine/ Epinephrine (Xylocaine 1%-Epi 1:100,000) 3 ml 1X ONCE IJ Last administered on 08/06/16 14:43; Start 08/06/16 at 14:45; Stop 08/06/16 at 14:54 ; Status DC Heparin Sodium/ Sodium Chloride 50 unit 1X ONCE IV Last administered on 14:44; Start 08/06/16 at 14:45; Stop 08/06/16 at 14:54; Status DC Heparin Sodium (Porcine) 2,400 unit 1X ONCE INT CAT Last administered on 14:43; Start 08/06/16 at 14:45; Stop 08/06/16 at 14:54; Status DC Dextrose 12.5 gm PRN Q15MIN PRN IV SEE COMMENTS; Start 08/06/16 at 19:45 Heparin Sodium (Porcine) 2000 unit 2,000 unit 1X STAT IV Last administered on 08/07/16 09:41; Start 08/07/16 at 09:19; Stop 08/07/16 at 09:37; Status DC Sodium Chloride (Iv Sodium Chloride 0.9% 1000ml Bag) 1,000 ml @ 1,000 mls/hr Q1H PRN IV hypotension; Start 08/07/16 at 09:19; Stop 08/07/16 at 16:00; Status DC Diphenhydramine HCl (Benadryl) 25 mg 1X PRN PRN IV ITCHING; Start 08/07/16 at 09:30; Stop 08/07/16 at 16:00; Status DC Diphenhydramine HCl (Benadryl) 25 mg 1X PRN PRN IV ITCHING; Start 08/07/16 at 09:30; Stop 08/07/16 at 16:00; Status DC Sodium Chloride (Normal Saline Flush) 10 ml 1X PRN PRN IV AP catheter pack; Start 08/07/16 at 09:30; Stop 08/07/16 at 16:00; Status DC Sodium Chloride 10 ml 10 ml 1X PRN PRN IV PAYMENT PROCESSOR catheter pack; Start 08/07/16 at 09:30; Stop 08/07/16 at 16:00; Status DC Sodium Chloride (Iv Sodium Chloride 0.9% 1000ml Bag) 1,000 ml @ 400 mls/hr Q2H30M PRN IV PATENCY; Start 08/07/16 at 09:19; Stop 08/07/16 at 16:00; Status DC Info 1 each 1 each PRN DAILY PRN MC SEE COMMENTS; Start 08/07/16 at 09:30; Status UNV Cefazolin Sodium/ Sodium Chloride (Ancef/Iv Sodium Chloride 0.9% 50ml) 50 ml @ 100 mls/hr DAILY IV Last administered on 08/09/16 09:15; Start 08/07/16 at 16: 00; Stop 08/09/16 at 11:27; Status DC Acetaminophen 650 mg 650 mg PRN Q6HRS PRN PO MILD PAIN / TEMP Last administered on 08/09/16 22:36; Start 08/07/16 at 17:30 Vancomycin HCl/ Sodium Chloride (Iv Sodium Chloride 0.9% 250ml) 250 ml @ 250 mls/hr 1X ONCE IV Last administered on 08/08/16 16:00; Start 08/08/16 at 16: 00; Stop 08/08/16 at 16:59; Status DC Iohexol (Omnipaque 300 Mg/ml) 75 ml 1X ONCE IV Last administered on 08/09/16 08:59; Start 08/09/16 at 07:45; Stop 08/09/16 at 07:46; Status DC Iohexol 50 ml 50 ml 1X ONCE PO Last administered on 08/09/16 08:59; Start at 07:45; Stop 08/09/16 at 07:46; Status DC Piperacillin Sod/ Tazobactam Sod/ Sodium Chloride (Zosyn/Iv Sodium Chloride 0.9 % 50ml) 50 ml @ 100 mls/hr Q6HRS IV Last administered on 08/11/16 06:15; Start 08/09/16 at 12:00 Vancomycin HCl 1 each 1 each PRN DAILY PRN MC SEE COMMENTS Last administered on 08/10/16 13:03; Start 08/09/16 at 11:30 Sodium Chloride 1,000 ml @ 1,000 mls/hr Q1H PRN IV hypotension; Start 08/09/16 at 13:30; Stop 08/09/16 at 19:29; Status DC Sodium Chloride (Iv Sodium Chloride 0.9% 1000ml Bag) 1,000 ml @ 400 mls/hr Q2H30M PRN IV PATENCY; Start 08/09/16 at 13:30; Stop 08/10/16 at 01:29; Status DC Info (PHARMACY MONITORING -- do not chart) 1 each PRN DAILY PRN MC SEE COMMENTS ; Start 08/09/16 at 15:45; Status UNV Insulin Detemir 30 units 30 units QHS SQ Last administered on 08/10/16 21:34; Start 08/09/16 at 21:00 Vancomycin HCl 1 gm/Sodium Chloride 250 ml @ 250 mls/hr 1X ONCE IV Last administered on 08/10/16 00:03; Start 08/09/16 at 20:00; Stop 08/09/16 at 20:59 ; Status DC Vancomycin HCl 1 gm/Sodium Chloride 250 ml @ 250 mls/hr TuThSa IV Last administered on 08/10/16 20:58; Start 08/10/16 at 18:00 Sodium Chloride 1,000 ml @ 1,000 mls/hr Q1H PRN IV hypotension; Start 08/10/16 at 12:00; Stop 08/10/16 at 17:59; Status DC Sodium Chloride (Iv Sodium Chloride 0.9% 1000ml Bag) 1,000 ml @ 400 mls/hr Q2H30M PRN IV PATENCY; Start 08/10/16 at 12:00; Stop 08/10/16 at 23:59; Status DC Info (PHARMACY MONITORING -- do not chart) 1 each PRN DAILY PRN MC SEE COMMENTS ; Start 08/10/16 at 13:15; Status UNV Active Scripts Active Miralax (Polyethylene Glycol 3350) 17 Gm Powd.pack 17 Gm PO PRN DAILY PRN Metoclopramide Hcl 10 Mg Tablet 10 Mg PO TIDBFRMEAL Reported Novolog (Insulin Aspart) 100 Unit/1 Ml Cartridge 20 Unit SQ TIDWMEALS Dionisio-Tab (Erythromycin Base) 250 Mg Tablet.dr 250 Mg PO BID Dialyvite 800 With Zinc (Vitamin B Comp W-C/Fa/Zinc) 0.8 Mg Tablet 0.8 Mg PO DAILY Escitalopram Oxalate 20 Mg Tablet 1 Tab PO DAILY Fish Oil (Venus-3 Fatty Acids) 300 Mg Capsule 300 Mg PO DAILY Colace (Docusate Sodium) 100 Mg Capsule 1 Cap PO DAILY Cyclobenzaprine Hcl 10 Mg Tablet 1 Tab PO DAILY Abilify (Aripiprazole) 20 Mg Tablet 20 Mg PO DAILY Lidoderm (Lidocaine) 700 Mg Adh..patch 1 Patch TP DAILY Percocet 5-325 Mg Tablet (Oxycodone/Acetaminophen) 1 Each Tablet 1 Tab PO PRN Q4 -6HRS PRN Metolazone 5 Mg Tablet 5 Mg PO DAILY Lamotrigine 100 Mg Tablet 1 Tab PO BID Valsartan 320 Mg Tablet 320 Mg PO DAILY Zofran (Ondansetron Hcl) 4 Mg Tablet 4 Mg PO TID PRN Essential Daily (Multivit With Calcium,Iron,Min) 1 Each Tablet 1 Each PO DAILY Lasix (Furosemide) 80 Mg Tablet 80 Mg PO TID Trinessa (Norgestimate-Ethinyl Estradiol) 1 Each Tablet 1 Tab PO DAILY Phoslo (Calcium Acetate) 667 Mg Capsule 1,334 Mg PO TIDWMEALS Proair Hfa Inhaler (Albuterol Sulfate) 8.5 Gm Hfa.aer.ad 1 Puff INH PRN Q6HRS PRN Hydralazine Hcl 50 Mg Tablet 1 Tab PO HS Tri-Sprintec (Norgestimate-Ethinyl Estradiol) 1 Each Tablet 1 Tab PO DAILY Hydrochlorothiazide Tablet (Hydrochlorothiazide) 25 Mg Tablet 1 Tab PO DAILY Labetalol Hcl 100 Mg Tablet 1 Tab PO BID Humalog Mix 75-25 Vial (Insulin Npl/Insulin Lispro) 100 Unit/1 Ml Vial 15 Unit SQ TIDAC Lantus Solostar (Insulin Glargine,Hum.rec.anlog) 100 Unit/1 Ml Insuln.pen 25 Unit SQ QHS Vitals/I & O Vital Sign - Last 24 Hours 08/10/16 08/10/16 08/10/16 08/10/16 14:45 18:33 18:40 19:00 Temp 98.2 98.8 98.2 98.8 Pulse 102 99 Resp 12 18 18 B/P 104/102 101/57 Pulse Ox 97 97 O2 Delivery Room Air Room Air 08/10/16 08/10/16 08/10/16 08/10/16 20:00 20:56 20:57 22:36 Pulse 87 87 Resp 18 B/P 84/46 84/46 O2 Delivery Room Air Room Air 08/10/16 08/11/16 08/11/16 08/11/16 23:00 03:00 06:16 07:00 Temp 98.0 98.1 97.5 98.0 98.1 97.5 Pulse 96 88 93 Resp 18 16 18 18 B/P 119/53 99/56 115/58 Pulse Ox 98 95 95 95 O2 Delivery Room Air Room Air 08/11/16 08/11/16 08/11/16 08/11/16 07:20 08:10 09:04 09:05 Pulse 93 93 Resp 19 B/P 115/58 115/58 Pulse Ox 92 O2 Delivery Room Air Room Air 08/11/16 11:17 Temp 98.0 98.0 Pulse 98 Resp 18 B/P 119/62 Pulse Ox 96 O2 Delivery Room Air Intake and Output 08/10/16 08/10/16 08/11/16 15:00 23:00 07:00 Intake Total 1050 ml 550 ml Output Total 4000 ml Balance -2950 ml 550 ml JOSE HARRISON MD Aug 11, 2016 12:23
[2016-08-11] MEDS: VANCOMYCIN PER PHARMACY MC PRN (13:42)
[2016-08-11 14:50] VITALS: BP 109/55
--- NOTE | 2016-08-11 14:51 | PDOC ---
Renal-Progress Notes Subjective Notes Notes FEELING BETTER History of Present Illness Hx of present illness IMPROVED Vitals Vitals Vital Signs Date Time Temp Pulse Resp B/P Pulse Ox O2 Delivery O2 Flow Rate FiO2 08/11/16 11:17 98.0 98 18 119/62 96 Room Air 98.0 Weight Weight [ ] I.O. Intake and Output Intake and Output 08/11/16 07:00 Intake Total 1600 ml Output Total 4000 ml Balance -2400 ml Intake Oral 1000 ml IV Total 350 ml Other 250 ml Other 4000 ml Labs Labs Laboratory Tests Test 08/10/16 16:55 08/10/16 21:13 08/11/16 05:14 08/11/16 07:11 Glucose (Fingerstick) 239mg/dL (70-99) 281mg/dL (70-99) 202mg/dL (70-99) White Blood Count 7.2x10^3/uL (4.0-11.0) Red Blood Count 2.36x10^6/uL (3.50-5.40) Hemoglobin 7.5g/dL (12.0-15.5) Hematocrit 21.7% (36.0-47.0) Mean Corpuscular Volume 92fL (79-100) Mean Corpuscular Hemoglobin 32pg (25-35) Mean Corpuscular Hemoglobin Concent 34g/dL (31-37) Red Cell Distribution Width 13.2% (11.5-14.5) Platelet Count 268x10^3/uL (140-400) Neutrophils (%) (Auto) 64% (31-73) Lymphocytes (%) (Auto) 28% (24-48) Monocytes (%) (Auto) 6% (0-9) Eosinophils (%) (Auto) 2% (0-3) Basophils (%) (Auto) 1% (0-3) Neutrophils # (Auto) 4.6x10^3uL (1.8-7.7) Lymphocytes # (Auto) 2.0x10^3/uL (1.0-4.8) Monocytes # (Auto) 0.4x10^3/uL (0.0-1.1) Eosinophils # (Auto) 0.2x10^3/uL (0.0-0.7) Basophils # (Auto) 0.0x10^3/uL (0.0-0.2) Sodium Level 140mmol/L (136-145) Potassium Level 4.0mmol/L (3.5-5.1) Chloride Level 100mmol/L (98-107) Carbon Dioxide Level 27mmol/L (21-32) Anion Gap 13 (6-14) Blood Urea Nitrogen 35mg/dL (7-20) Creatinine 5.6mg/dL (0.6-1.0) Estimated GFR (Cockcroft-Gault) 9.1 Glucose Level 212mg/dL (70-99) Calcium Level 8.5mg/dL (8.5-10.1) Test 08/11/16 11:24 Glucose (Fingerstick) 208mg/dL (70-99) Micro Micro Microbiology 08/09/16 Blood Culture - Preliminary, Resulted NO GROWTH AFTER 2 DAYS 08/06/16 Urine Culture - Final, Complete 08/06/16 Urine Culture Result 1 (PEGGY) - Final, Complete 08/06/16 Gram Stain - Final, Complete Review of Systems Constitutional: yes: alert, no symptom reported, oriented, weakness Ears/Nose/Throat: Yes: no symptom reported Eyes: Yes: no symptom reported Pulmonary: Yes no symptom reported Cardiovascular: Yes no symptom reported Musculoskeletal: Yes: muscle stiffness Psychiatric/Neurological: Yes: no symptom reported Physical Exam General Appearance: no apparent distress Skin: warm Respiratory: bilateral CTA Heart: S1S2, RRR Abdomen: soft, bowel sounds present Neurology: alert, oriented Assessment Assessment IMP LINE INFECTION ANEMIA ESRD PLAN HD TOMORROW ANTIBIOTICS CONVERT TEMP TO TUNNELED LINE ONCE INFECTION CLEARS WILL FOLLOW EVENS OLMSTEAD MD Aug 11, 2016 14:51
[2016-08-11 19:00] VITALS: BP 106/63
[2016-08-11] MEDS: ARIPIPRAZOLE 5 MG TABLET. PO SCH (20:49)
[2016-08-11] MEDS: HYDRALAZINE 50 MG TABLET PO SCH (20:52)
[2016-08-11] MEDS: INSULIN DETEMIR 300 UNITS/3 ML INSULN.PEN. SQ SCH (20:58)
[2016-08-11 22:40] VITALS: BP 120/60
[2016-08-12] MEDS: PIPERACILLIN/TAZOBACTAM 2.25 GM in IV NORMAL SALINE 50ML 50 ML IV SCH ×2 (00:30→06:24)
[2016-08-12 05:05] LABS: BASO % 1 % (0-3); EOS % 3 % (0-3); HEMOGLOBIN 7.2 g/dL (12.0-15.5); LYMPH # 2.1 x10^3/uL (1.0-4.8); LYMPH % 29 % (24-48); MEAN CORPUSCULAR HEMOGLOBIN 32 pg (25-35); MEAN CORPUSCULAR HGB CONC 34 g/dL (31-37); MEAN CORPUSCULAR VOLUME 93 fL (79-100); MONO % 5 % (0-9); NEUT % 63 % (31-73); PLATELET COUNT 293 x10^3/uL (140-400); RED BLOOD COUNT 2.27 x10^6/uL (3.50-5.40); RED CELL DISTRIBUTION WIDTH 13.5 % (11.5-14.5); WHITE BLOOD COUNT 7.2 x10^3/uL (4.0-11.0)
[2016-08-12 05:36] LABS: CALCIUM 8.5 mg/dL (8.5-10.1); CREATININE 7.3 mg/dL (0.6-1.0); GFR 6.7; POTASSIUM 4.5 mmol/L (3.5-5.1)
[2016-08-12] MEDS: HEPARIN PF for SUB-Q USE 5,000 UNIT/0.5 ML VIAL. SQ SCH ×2 (06:00→14:00)
[2016-08-12 07:00] VITALS: BP 129/63
[2016-08-12] MEDS: INSULIN ASPART 300 UNITS/3 ML INSULN.PEN SQ SCH ×3 (08:00→17:00)
[2016-08-12] MEDS: MULTIVITAMIN with MINERAL TABLET. PO SCH (08:18)
[2016-08-12] MEDS: OMEGA-3 FATTY ACIDS/FISH OIL 1,000 MG CAPSULE. PO SCH (08:20)
[2016-08-12] MEDS: LOSARTAN POTASSIUM 50 MG TABLET. PO SCH (08:20)
[2016-08-12] MEDS: CALCIUM ACETATE 667 MG CAPSULE PO SCH ×3 (08:20→17:00)
[2016-08-12] MEDS: LABETALOL HCL 200 MG TABLET PO SCH (08:20)
[2016-08-12] MEDS: ESCITALOPRAM 10 MG TABLET. PO SCH (08:21)
[2016-08-12] MEDS: lamoTRIgine 25 MG TABLET. PO SCH (08:21)
[2016-08-12] MEDS: FUROSEMIDE 80 MG TABLET PO SCH ×2 (08:21→14:00)
[2016-08-12] MEDS: ERYTHROMYCIN BASE 250 MG TABLET PO SCH (08:22)
[2016-08-12] MEDS: FOLIC/VIT B COMP W-C (RENAL) TABLET. PO SCH (08:22)
[2016-08-12] MEDS: METOLAZONE 2.5 MG TABLET PO SCH (08:22)
[2016-08-12] MEDS: METOCLOPRAMIDE 5 MG TABLET PO SCH ×3 (08:23→16:30)
[2016-08-12] MEDS: OXYCODONE/APAP 5/325 TABLET. PO PRN ×2 (08:24→13:34)
[2016-08-12] MEDS: LIDOCAINE (700MG/PATCH) PATCH. TP SCH (08:29)
[2016-08-12] MEDS: DOCUSATE SODIUM 100 MG CAPSULE PO SCH (09:00)
--- NOTE | 2016-08-12 09:50 | PDOC ---
Infectious Disease Note Subjective Subjective feeling better ROS ROS GEN: Denies fevers, chills, sweats HEENT: Denies blurred vision, sore throat CV: Denies chest pain RESP: Denies shortness of air, cough GI: Denies n/v/d NEURO: Denies confusion, dizziness MSK: Denies weakness, joint pain/swelling Vital Sign Vital Signs Vital Signs Date Time Temp Pulse Resp B/P Pulse Ox O2 Delivery O2 Flow Rate FiO2 08/12/16 08:20 94 129/63 08/12/16 07:00 97.8 18 95 Room Air 97.8 Physical Exam PHYSICAL EXAM GENERAL: NAD, Alert HEENT: PERRL, OC/OP NECK: Supple, no JVD, no LN LUNGS: Clear HEART: S1S2, no gallop, no murmur ABD: Soft, NT, no organomegaly, no rebound EXT: No edema, no cyanosis [employer]: Alert, oriented x 3, no focal neurologic deficit SKIN: No rash IV: ok Labs Lab Laboratory Tests Test 08/11/16 11:24 08/11/16 16:44 08/11/16 20:23 08/12/16 04:00 Glucose (Fingerstick) 208mg/dL (70-99) 381mg/dL (70-99) 256mg/dL (70-99) White Blood Count 7.2x10^3/uL (4.0-11.0) Red Blood Count 2.27x10^6/uL (3.50-5.40) Hemoglobin 7.2g/dL (12.0-15.5) Hematocrit 21.0% (36.0-47.0) Mean Corpuscular Volume 93fL (79-100) Mean Corpuscular Hemoglobin 32pg (25-35) Mean Corpuscular Hemoglobin Concent 34g/dL (31-37) Red Cell Distribution Width 13.5% (11.5-14.5) Platelet Count 293x10^3/uL (140-400) Neutrophils (%) (Auto) 63% (31-73) Lymphocytes (%) (Auto) 29% (24-48) Monocytes (%) (Auto) 5% (0-9) Eosinophils (%) (Auto) 3% (0-3) Basophils (%) (Auto) 1% (0-3) Neutrophils # (Auto) 4.5x10^3uL (1.8-7.7) Lymphocytes # (Auto) 2.1x10^3/uL (1.0-4.8) Monocytes # (Auto) 0.4x10^3/uL (0.0-1.1) Eosinophils # (Auto) 0.2x10^3/uL (0.0-0.7) Basophils # (Auto) 0.0x10^3/uL (0.0-0.2) Sodium Level 140mmol/L (136-145) Potassium Level 4.5mmol/L (3.5-5.1) Chloride Level 101mmol/L (98-107) Carbon Dioxide Level 23mmol/L (21-32) Anion Gap 16 (6-14) Blood Urea Nitrogen 56mg/dL (7-20) Creatinine 7.3mg/dL (0.6-1.0) Estimated GFR (Cockcroft-Gault) 6.7 Glucose Level 250mg/dL (70-99) Calcium Level 8.5mg/dL (8.5-10.1) Test 08/12/16 07:16 Glucose (Fingerstick) 178mg/dL (70-99) Micro Eikenella corrodens Objective Assessment Fever Leukocytosis Staph infection - line. s/p HDC removal and temp replacement, 08/06. MSSA from 08/03 Tra. CKD on HD DM Contaminated Urine specimen Plan Plan of Care neg change antibiotics to po augmentin ok to do permacath tomorrow ok to d/c then from id stand point FRACISCO MOTA MD Aug 12, 2016 09:50
[2016-08-12 11:00] VITALS: BP 115/53
--- NOTE | 2016-08-12 11:50 | PDOC ---
Renal-Progress Notes Subjective Notes Notes NONE History of Present Illness Hx of present illness BETTER Vitals Vitals Vital Signs Date Time Temp Pulse Resp B/P Pulse Ox O2 Delivery O2 Flow Rate FiO2 08/12/16 11:00 97.8 90 18 115/53 93 Room Air 97.8 Weight Weight [ ] I.O. Intake and Output Intake and Output 08/12/16 07:00 Intake Total 1745 ml Balance 1745 ml Intake Oral 1380 ml IV Total 50 ml Other 315 ml Labs Labs Laboratory Tests Test 08/11/16 16:44 08/11/16 20:23 08/12/16 04:00 08/12/16 07:16 Glucose (Fingerstick) 381mg/dL (70-99) 256mg/dL (70-99) 178mg/dL (70-99) White Blood Count 7.2x10^3/uL (4.0-11.0) Red Blood Count 2.27x10^6/uL (3.50-5.40) Hemoglobin 7.2g/dL (12.0-15.5) Hematocrit 21.0% (36.0-47.0) Mean Corpuscular Volume 93fL (79-100) Mean Corpuscular Hemoglobin 32pg (25-35) Mean Corpuscular Hemoglobin Concent 34g/dL (31-37) Red Cell Distribution Width 13.5% (11.5-14.5) Platelet Count 293x10^3/uL (140-400) Neutrophils (%) (Auto) 63% (31-73) Lymphocytes (%) (Auto) 29% (24-48) Monocytes (%) (Auto) 5% (0-9) Eosinophils (%) (Auto) 3% (0-3) Basophils (%) (Auto) 1% (0-3) Neutrophils # (Auto) 4.5x10^3uL (1.8-7.7) Lymphocytes # (Auto) 2.1x10^3/uL (1.0-4.8) Monocytes # (Auto) 0.4x10^3/uL (0.0-1.1) Eosinophils # (Auto) 0.2x10^3/uL (0.0-0.7) Basophils # (Auto) 0.0x10^3/uL (0.0-0.2) Sodium Level 140mmol/L (136-145) Potassium Level 4.5mmol/L (3.5-5.1) Chloride Level 101mmol/L (98-107) Carbon Dioxide Level 23mmol/L (21-32) Anion Gap 16 (6-14) Blood Urea Nitrogen 56mg/dL (7-20) Creatinine 7.3mg/dL (0.6-1.0) Estimated GFR (Cockcroft-Gault) 6.7 Glucose Level 250mg/dL (70-99) Calcium Level 8.5mg/dL (8.5-10.1) Test 08/12/16 11:17 Glucose (Fingerstick) 97mg/dL (70-99) Micro Micro Microbiology 08/09/16 Blood Culture - Preliminary, Resulted NO GROWTH AFTER 2 DAYS 08/06/16 Urine Culture - Final, Complete 08/06/16 Urine Culture Result 1 (PEGGY) - Final, Complete 08/06/16 Gram Stain - Final, Complete Review of Systems Constitutional: yes: alert, no symptom reported, oriented, weakness Ears/Nose/Throat: Yes: no symptom reported Eyes: Yes: no symptom reported Pulmonary: Yes no symptom reported Cardiovascular: Yes no symptom reported Musculoskeletal: Yes: muscle stiffness Psychiatric/Neurological: Yes: no symptom reported Physical Exam General Appearance: no apparent distress Skin: warm Respiratory: bilateral CTA Heart: S1S2, RRR Abdomen: soft, bowel sounds present Neurology: alert, oriented Assessment Assessment IMP LINE INFECTION WITH STAPH ANEMIA ESRD PLAN HD TODAY UF TO DW ANTIBIOTICS CONVERT TEMP TO TUNNELED LINE D/W ID WILL FOLLOW EVENS OLMSTEAD MD Aug 12, 2016 11:50
[2016-08-12] MEDS ORDERED: AMOX1TAB61 PO (12:07)
--- NOTE | 2016-08-12 12:10 | PDOC3 ---
Discharge Summary Visit Information Date of Admission: Aug 05, 2016 Date of Discharge: Aug 12, 2016 Admitting Diagnosis Comment: Maharaj cath site infection ESRD on HD Final Diagnosis Problems Medical Problems: (1) Fever Status: Acute (2) Infection due to Maharaj catheter Status: Acute Brief Hospital Course Allergies Allergies Coded Allergies Type Severity Reaction Last Updated Verified lurasidone Allergy Severe 04/15/16 Yes Vital Signs Vital Signs Date Time Temp Pulse Resp B/P Pulse Ox O2 Delivery O2 Flow Rate FiO2 08/12/16 11:00 97.8 90 18 115/53 93 Room Air 97.8 Lab Results Laboratory Tests Test 08/10/16 16:55 08/10/16 21:13 08/11/16 05:14 08/11/16 07:11 Glucose (Fingerstick) 239mg/dL (70-99) 281mg/dL (70-99) 202mg/dL (70-99) White Blood Count 7.2x10^3/uL (4.0-11.0) Red Blood Count 2.36x10^6/uL (3.50-5.40) Hemoglobin 7.5g/dL (12.0-15.5) Hematocrit 21.7% (36.0-47.0) Mean Corpuscular Volume 92fL (79-100) Mean Corpuscular Hemoglobin 32pg (25-35) Mean Corpuscular Hemoglobin Concent 34g/dL (31-37) Red Cell Distribution Width 13.2% (11.5-14.5) Platelet Count 268x10^3/uL (140-400) Neutrophils (%) (Auto) 64% (31-73) Lymphocytes (%) (Auto) 28% (24-48) Monocytes (%) (Auto) 6% (0-9) Eosinophils (%) (Auto) 2% (0-3) Basophils (%) (Auto) 1% (0-3) Neutrophils # (Auto) 4.6x10^3uL (1.8-7.7) Lymphocytes # (Auto) 2.0x10^3/uL (1.0-4.8) Monocytes # (Auto) 0.4x10^3/uL (0.0-1.1) Eosinophils # (Auto) 0.2x10^3/uL (0.0-0.7) Basophils # (Auto) 0.0x10^3/uL (0.0-0.2) Sodium Level 140mmol/L (136-145) Potassium Level 4.0mmol/L (3.5-5.1) Chloride Level 100mmol/L (98-107) Carbon Dioxide Level 27mmol/L (21-32) Anion Gap 13 (6-14) Blood Urea Nitrogen 35mg/dL (7-20) Creatinine 5.6mg/dL (0.6-1.0) Estimated GFR (Cockcroft-Gault) 9.1 Glucose Level 212mg/dL (70-99) Calcium Level 8.5mg/dL (8.5-10.1) Test 08/11/16 11:24 08/11/16 16:44 08/11/16 20:23 08/12/16 04:00 Glucose (Fingerstick) 208mg/dL (70-99) 381mg/dL (70-99) 256mg/dL (70-99) White Blood Count 7.2x10^3/uL (4.0-11.0) Red Blood Count 2.27x10^6/uL (3.50-5.40) Hemoglobin 7.2g/dL (12.0-15.5) Hematocrit 21.0% (36.0-47.0) Mean Corpuscular Volume 93fL (79-100) Mean Corpuscular Hemoglobin 32pg (25-35) Mean Corpuscular Hemoglobin Concent 34g/dL (31-37) Red Cell Distribution Width 13.5% (11.5-14.5) Platelet Count 293x10^3/uL (140-400) Neutrophils (%) (Auto) 63% (31-73) Lymphocytes (%) (Auto) 29% (24-48) Monocytes (%) (Auto) 5% (0-9) Eosinophils (%) (Auto) 3% (0-3) Basophils (%) (Auto) 1% (0-3) Neutrophils # (Auto) 4.5x10^3uL (1.8-7.7) Lymphocytes # (Auto) 2.1x10^3/uL (1.0-4.8) Monocytes # (Auto) 0.4x10^3/uL (0.0-1.1) Eosinophils # (Auto) 0.2x10^3/uL (0.0-0.7) Basophils # (Auto) 0.0x10^3/uL (0.0-0.2) Sodium Level 140mmol/L (136-145) Potassium Level 4.5mmol/L (3.5-5.1) Chloride Level 101mmol/L (98-107) Carbon Dioxide Level 23mmol/L (21-32) Anion Gap 16 (6-14) Blood Urea Nitrogen 56mg/dL (7-20) Creatinine 7.3mg/dL (0.6-1.0) Estimated GFR (Cockcroft-Gault) 6.7 Glucose Level 250mg/dL (70-99) Calcium Level 8.5mg/dL (8.5-10.1) Test 08/12/16 07:16 08/12/16 11:17 Glucose (Fingerstick) 178mg/dL (70-99) 97mg/dL (70-99) Laboratory Tests Test 08/11/16 16:44 08/11/16 20:23 08/12/16 04:00 08/12/16 07:16 Glucose (Fingerstick) 381mg/dL (70-99) 256mg/dL (70-99) 178mg/dL (70-99) White Blood Count 7.2x10^3/uL (4.0-11.0) Red Blood Count 2.27x10^6/uL (3.50-5.40) Hemoglobin 7.2g/dL (12.0-15.5) Hematocrit 21.0% (36.0-47.0) Mean Corpuscular Volume 93fL (79-100) Mean Corpuscular Hemoglobin 32pg (25-35) Mean Corpuscular Hemoglobin Concent 34g/dL (31-37) Red Cell Distribution Width 13.5% (11.5-14.5) Platelet Count 293x10^3/uL (140-400) Neutrophils (%) (Auto) 63% (31-73) Lymphocytes (%) (Auto) 29% (24-48) Monocytes (%) (Auto) 5% (0-9) Eosinophils (%) (Auto) 3% (0-3) Basophils (%) (Auto) 1% (0-3) Neutrophils # (Auto) 4.5x10^3uL (1.8-7.7) Lymphocytes # (Auto) 2.1x10^3/uL (1.0-4.8) Monocytes # (Auto) 0.4x10^3/uL (0.0-1.1) Eosinophils # (Auto) 0.2x10^3/uL (0.0-0.7) Basophils # (Auto) 0.0x10^3/uL (0.0-0.2) Sodium Level 140mmol/L (136-145) Potassium Level 4.5mmol/L (3.5-5.1) Chloride Level 101mmol/L (98-107) Carbon Dioxide Level 23mmol/L (21-32) Anion Gap 16 (6-14) Blood Urea Nitrogen 56mg/dL (7-20) Creatinine 7.3mg/dL (0.6-1.0) Estimated GFR (Cockcroft-Gault) 6.7 Glucose Level 250mg/dL (70-99) Calcium Level 8.5mg/dL (8.5-10.1) Test 08/12/16 11:17 Glucose (Fingerstick) 97mg/dL (70-99) Brief Hospital Course Ms. Perez is a 26 old female admitted bec of Maharaj site infection (was on R subclavian). HD cath removed, perma cath placed now on Left subclavian area, will do HD later then home on KARI augmentin later, co managed with ID, Grew staph aureus as (expected) in . Dw at bedside and pt Dw case and SW dispo: home New RX : PO augmentin ID x 7 days Pt seen and examined dc 32 mins > 50% counselling Discharge Information Condition at Discharge: Improved, Stable Disposition/Orders: D/C to Home Scheduled Aripiprazole (Abilify) 20 MG PO DAILY (Reported) Calcium Acetate (Phoslo) 1,334 MG PO TIDWMEALS (Reported) Cyclobenzaprine Hcl (Cyclobenzaprine Hcl) 1 TAB PO DAILY (Reported) Docusate Sodium (Colace) 1 CAP PO DAILY (Reported) Erythromycin Base (Dionisio-Tab) 250 MG PO BID (Reported) Escitalopram Oxalate (Escitalopram Oxalate) 1 TAB PO DAILY (Reported) Furosemide (Lasix) 80 MG PO TID (Reported) Hydralazine Hcl (Hydralazine Hcl) 1 TAB PO HS (Reported) Hydrochlorothiazide (Hydrochlorothiazide Tablet ) 1 TAB PO DAILY (Reported) Insulin Aspart (Novolog) 20 UNIT SQ TIDWMEALS (Reported) Insulin Glargine,Hum.rec.anlog (Lantus Solostar) 25 UNIT SQ QHS (Reported) Insulin Npl/Insulin Lispro (Humalog Mix 75-25 Vial) 15 UNIT SQ TIDAC (Reported) Labetalol Hcl (Labetalol Hcl) 1 TAB PO BID (Reported) Lamotrigine (Lamotrigine) 1 TAB PO BID (Reported) Lidocaine (Lidoderm) 1 PATCH TP DAILY (Reported) Metoclopramide Hcl (Metoclopramide Hcl) 10 MG PO TIDBFRMEAL Metolazone (Metolazone) 5 MG PO DAILY (Reported) Multivit With Calcium,Iron,Min (Essential Daily) 1 EACH PO DAILY (Reported) Norgestimate-Ethinyl Estradiol (Tri-Sprintec) 1 TAB PO DAILY (Reported) Norgestimate-Ethinyl Estradiol (Trinessa) 1 TAB PO DAILY (Reported) [place]-3 Fatty Acids (Fish Oil) 300 MG PO DAILY (Reported) Valsartan (Valsartan) 320 MG PO DAILY (Reported) Vitamin B Comp W-C/Fa/Zinc (Dialyvite 800 With Zinc) 0.8 MG PO DAILY (Reported) Scheduled PRN Albuterol Sulfate (Proair Hfa Inhaler) 1 PUFF INH PRN Q6HRS PRN PRN SHORTNESS OF BREATH (Reported) Ondansetron Hcl (Zofran) 4 MG PO TID PRN PRN NAUSEA/VOMITING (Reported) Oxycodone/Apap 5-325 (Percocet 5-325 Mg Tablet) 1 TAB PO PRN Q4-6HRS PRN PRN PAIN (Reported) Polyethylene Glycol 3350 (Miralax) 17 GM PO PRN DAILY PRN PRN CONSTIPATION 1ST CHOICE Discontinued Medications Diltiazem Hcl (Diltiazem 24HR Cd) 240 MG PO DAILY (Reported) Escitalopram Oxalate (Escitalopram Oxalate) 1 TAB PO HS (Reported) Ferrous Sulfate (Iron Supplement) 325 MG PO TID (Reported) Fexofenadine Hcl (Ruthy Allergy) 1 TAB PO DAILY (Reported) Sodium Bicarbonate (Sodium Bicarbonate) 20 MG PO DAILY (Reported) EDMAR ACKERMAN MD Aug 12, 2016 12:10
[2016-08-12] MEDS ORDERED: HEPARIN for IV BOLUS 10,000 UNIT/10 ML VIAL. ONE (13:31)
[2016-08-12] MEDS ORDERED: LIDOCAINE 1%/EPI 1:100,000 20 ML VIAL. ONE (13:31)
[2016-08-12] MEDS ORDERED: MIDAZOLAM HCL 2 MG/2 ML VIAL. ONE ×2 (14:02→14:23)
[2016-08-12] MEDS ORDERED: FENTANYL PF 100 MCG/2 ML VIAL. ONE ×2 (14:02→14:22)
[2016-08-12] MEDS ORDERED: CEFAZOLIN 1GM IVPB FOR OMNI 50 ML IV ONE ×2 (14:15→15:00)
[2016-08-12] MEDS ORDERED: LIDOCAINE 1%/EPI 1:100,000 20 ML VIAL. IJ ONE (14:45)
[2016-08-12] MEDS ORDERED: HEPARIN for IV BOLUS 10,000 UNIT/10 ML VIAL. IV ONE (14:45)
[2016-08-12] MEDS ORDERED: MIDAZOLAM HCL 2 MG/2 ML VIAL. IV ONE (14:45)
[2016-08-12] MEDS ORDERED: FENTANYL PF 100 MCG/2 ML VIAL. IV ONE (14:45)
--- NOTE | 2016-08-12 15:00 | PDOC ---
MODERATE SEDATION ASSESSMENT RISKS/ALTERNATIVES Risks/Alternatives Risks and alternatives of this type of sedation and procedure discussed with: RISK/ALTERNATIVES: Patient H & P ON CHART H & P H & P on chart and reviewed for co-morbid conditions and appropriate labs. H&P ON CHART: Yes STATUS PREG STATUS ASSESSED: Yes MEDS/ALLERGIES REVIEWED Meds/Allergies Reviewed Medications and Allergies including time and route of recently administered narcotics and sedatives. MEDS/ALLERGIES REVIEWED: Yes ASA RATING ASA RATING: III AIRWAY ASSESSMENT Airway Assessment Airway patency, oral function limitations, presence of caps, crowns, dentures, partials, and ability to extend neck assessed. AIRWAY ASSESSMENT: Yes MALLAMPATI SCORE MALLAMPATI SCORE: III PRE-SEDATION ASSESSMENT PRE-SEDATION ASSESSMENT: Yes ZOIE AVELAR MD Aug 12, 2016 15:00
[2016-08-12] MEDS ORDERED: IV NORMAL SALINE 1000ML BAG 1,000 ML IV PRN (15:03)
--- NOTE | 2016-08-12 15:03 | PDOC ---
Exam Gastroenterologist Gastroenterologist Hillary Solution Engineer Solution Engineer F Ndumbu Pre-Procedure Diagnosis Pre-Procedure Diagnosis ESRD. S/p removal of infected rt IJ tunneled HDC with placement of left IJ temp HDC on 08/06/16. Conversion from temp to tunneled HDC now requested by Renal. Post-Procedure Diagnosis Post-Procedure Diagnosis Same Procedure Performed Procedure Performed Removal lt IJ temp HDC Sono/fluoro guided insertion lt IJ tunneled HDC Type of Anesthesia Type of Anesthesia Local + Mod sedation Estimated Blood Loss EBL: Minimal Specimens Specimans 14F 24cm Schon temp HDC removed and discarded Drain/Tubes Drains/Tubes Left IJ 15.5F 28cm DuraMax tunneled HDC Condition of Patient Condition of Patient Stable. No apparent complication. Disposition Disposition From IR return to [facility]. F/u with Renal. OK to use new lt IJ tunneled HDC. Full report to follow. ZOIE AVELAR MD Aug 12, 2016 15:03
[2016-08-12] MEDS ORDERED: ALBUMIN HUMAN 25% 200 ML IV PRN (15:15)
[2016-08-12] MEDS ORDERED: LABETALOL 20 MG/4 ML DISP.SYRIN. IVP PRN (15:15)
[2016-08-12] MEDS ORDERED: DIPHENHYDRAMINE 50 MG/ML VIAL IV PRN ×2 (15:15)
[2016-08-12] MEDS ORDERED: DIALYSIS PATIENT. MC PRN (15:15)
[2016-08-12] MEDS ORDERED: CLONIDINE HCL 0.1 MG TABLET PO PRN (15:15)
[2016-08-12] MEDS ORDERED: ACETAMINOPHEN 500 MG TABLET PO PRN (15:15)
[2016-08-12 19:00] VITALS: BP 110/53
[2016-08-12] MEDS ORDERED: AMOXICILLIN/K CLAV 500/125MG TABLET. PO SCH (21:00)
[2016-08-13 02:15] LABS: HEP B SURFACE ABDY Non Reactive (.)
--- NOTE | 2016-08-13 07:39 | RAD ---
Removal of left IJ temporary hemodialysis catheter Ultrasound and fluoro guided placement of left IJ tunneled hemodialysis catheter Indication: 26-year-old female with renal failure. She is status post recent removal of infected right IJ tunneled hemodialysis catheter, with subsequent placement of left IJ temporary hemodialysis catheter. Infection has resolved. Removal of the left IJ temporary dialysis catheter, with placement of a new tunneled dialysis catheter has been requested by renal. Fluoro time: 1.6 minutes Kerma-Area Product: 15 Gycm2 Moderate sedation: 46 minutes moderate sedation was provided utilizing a total of 4 mg Versed and 200 mcg fentanyl, IV. The patient was appropriately monitored by a qualified independent observer throughout the time of moderate sedation. Antibiotic: A single dose of Ancef was administered within 1 hour of the procedure start time. Sterility: All elements of maximal sterile barrier technique, including the use of a cap, mask, sterile gown, sterile gloves, large sterile sheet, appropriate hand hygiene, and 2% chlorhexidine for cutaneous antisepsis (or acceptable alternative antiseptic per current guidelines) were utilized. Consent: The procedure was explained in its entirety to the patient and/or the patient's designated medical service representative by a member of the treatment team. This included a discussion of risks and benefits and commonly accepted alternatives to the procedure, as well as expected consequences of no treatment at all. Discussion of risks included, but was not limited to, those that are most frequent and those that are rare, but possibly severe or life-threatening, as well as the possibility of unforeseen complications. Procedure: Informed consent was obtained from the patient. She was placed supine on the angiography table. Preliminary ultrasound examination of left neck revealed continued wide patency of left internal jugular vein, which was documented with a hard copy ultrasound image. The indwelling left IJ 14 Maltese 24 cm Schon temporary hemodialysis catheter was then easily removed utilizing gentle traction. Hemostasis was achieved with manual pressure over left internal jugular vein. Left neck and upper chest were then prepped and draped in the usual sterile fashion, utilizing all elements of maximal sterile barrier technique, as described above. Moderate sedation was provided with IV Versed and Fentanyl. 1 gram Ancef was given IV, prophylactically. Using aseptic technique and local anesthesia, a small skin incision was made lateral to left internal jugular vein, just above clavicle. Using aseptic technique, local anesthesia, and direct ultrasound guidance, a micropuncture needle was successfully introduced into left internal jugular vein. The micropuncture needle was then exchanged over a microguidewire for a micropuncture sheath, through which an Amplatz wire was advanced into IVC, under fluoroscopic control. A second small skin incision was then made along upper anterior lateral aspect of left chest. A subcutaneous tunnel was then fashioned between the left chest and supraclavicular incisions. A 15.5 F 28 cm Dura Max dialysis catheter was pulled through the subcutaneous tunnel from inferior to superior, utilizing the tunneling device provided. The left IJ venostomy tract was then sequentially dilated and the 15.5 Maltese dialysis catheter was easily advanced centrally through a 16 Maltese peel-away sheath, and was positioned with its tip at the level of mid right atrium utilizing fluoroscopic guidance. This catheter was demonstrated to flush and aspirate normally, was packed, and was secured at the left chest exit site utilizing 2-0 Prolene and sterile dressing. The small supraclavicular incision was closed with 4-0 Vicryl, Steri-Strips, and sterile dressing. Patient tolerated the procedure well without apparent complication. Satisfactory position of the dialysis catheter was confirmed with a single fluoroscopic spot image. Impression: Successful, uneventful ultrasound and fluoro guided placement of left IJ 15.5 F 28 cm Dura Max tunneled hemodialysis catheter, following removal of left IJ 14 Maltese 24 cm Schon temporary hemodialysis catheter, as described.
== END 2016-08-12 21:29 | disposition home or self-care (01) | DRG 286 ==
LOC: ER 09:16 → 5 SOUTH 10:40
PROVIDERS: ADMIT Internal Medicine; ATTEND Internal Medicine
PROC: 5A1D60Z (ICD-10-PCS; 2016-08-05)
PROC: 02H633Z Insertion of Infusion Device into Right Atrium, Percutaneous Approach (ICD-10-PCS; principal; 2016-08-12)
PROC: B2141ZZ Fluoroscopy of Right Heart using Low Osmolar Contrast (ICD-10-PCS; 2016-08-12)
PROC: B244YZZ Ultrasonography of Right Heart using Other Contrast (ICD-10-PCS; 2016-08-12)
PROC: 02PA33Z Removal of Infusion Device from Heart, Percutaneous Approach (ICD-10-PCS; 2016-08-12)
DX: T80.218A Other infection due to central venous catheter, initial encounter (principal); N18.6 End stage renal disease; A41.9 Sepsis, unspecified organism; E87.1 Hypo-osmolality and hyponatremia; I12.0 Hypertensive chronic kidney disease with stage 5 chronic kidney disease or end stage renal disease; N17.9 Acute kidney failure, unspecified; Z68.41 Body mass index [BMI] 40.0-44.9, adult; B95.8 Unspecified staphylococcus as the cause of diseases classified elsewhere; D63.1 Anemia in chronic kidney disease; E11.22 Type 2 diabetes mellitus with diabetic chronic kidney disease; E11.319 Type 2 diabetes mellitus with unspecified diabetic retinopathy without macular edema; E11.43 Type 2 diabetes mellitus with diabetic autonomic (poly)neuropathy; E87.5 Hyperkalemia; F17.200 Nicotine dependence, unspecified, uncomplicated; F31.9 Bipolar disorder, unspecified; Y84.8 Other medical procedures as the cause of abnormal reaction of the patient, or of later complication, without mention of misadventure at the time of the procedure; E66.9 Obesity, unspecified; F41.9 Anxiety disorder, unspecified; G47.00 Insomnia, unspecified; J45.909 Unspecified asthma, uncomplicated; K31.84 Gastroparesis; Z79.899 Other long term (current) drug therapy; Z88.8 Allergy status to other drugs, medicaments and biological substances; Z83.3 Family history of diabetes mellitus; Z99.2 Dependence on renal dialysis
CPT/HCPCS: 36415; 36556; 36558; 36589; 71010; 71260; 74177; 76937; 77001; 80048; 80053; 80202; 81001; 82947; 83036; 83605; 85027; 85610; 86706; 87040; 87070; 87071; 87075; 87086; 87205; 87340; 87341; 87804; 94250; 94760; C1750; C1769; C1892; J0690; J0881; J1815; J2250; J2543; J3010; J3370; J3490; J7040; J7042; J7050; J8597; Q9966; Q9967; 99285-25; J7030

== ENCOUNTER 2016-09-11 13:11 | Emergency (ER) | payer OTHER ==
[~2016-09-11] VITALS: Ht 154.9 cm; Wt 108.9 kg
[~2016-09-11 13:11] MED LIST changes: +AMOX1TAB61 PO; +ARIP20TA8 PO; +CYCL10TA2 PO; +DOCU-27 PO; +ERYT250T16 PO; +ESCI20TA PO; +INSU100C4 SQ; +LIDO700A4 TP; +OMEG300C PO; +VITA0.8T2 PO
[2016-09-11 13:14] VITALS: BP 100/54
[2016-09-11 14:56] LABS: NEG OBC FOB NEG; POS OBC FOB POS
[2016-09-11 15:06] LABS: BASO # 0.1 x10^3/uL (0.0-0.2); BASO % 1 % (0-3); EOS % 1 % (0-3); HEMATOCRIT 28.6 % (36.0-47.0); HEMOGLOBIN 9.8 g/dL (12.0-15.5); LYMPH # 1.2 x10^3/uL (1.0-4.8); LYMPH % 13 % (24-48); MEAN CORPUSCULAR HEMOGLOBIN 32 pg (25-35); MEAN CORPUSCULAR HGB CONC 34 g/dL (31-37); MEAN CORPUSCULAR VOLUME 94 fL (79-100); MONO % 4 % (0-9); NEUT % 82 % (31-73); PLATELET COUNT 237 x10^3/uL (140-400); RED BLOOD COUNT 3.05 x10^6/uL (3.50-5.40); RED CELL DISTRIBUTION WIDTH 15.5 % (11.5-14.5)
[2016-09-11 15:16] LABS: CALCIUM 8.8 mg/dL (8.5-10.1); CREATININE 2.3 mg/dL (0.6-1.0); GFR 25.4
[2016-09-11 15:22] LABS: NEG OBC SER NEG; POS OBC SER POS
--- NOTE | 2016-09-11 15:29 | PHYS DOC ---
Past Medical History Past Medical History: , Anxiety, Depression, Diabetes-Type II, Hypertension, Renal Failure, Other Additional Past Medical Histor: ESRD,GASTROPARESIS Past Surgical History: Cholecystectomy, Other Additional Past Surgical Histo: L FISTULA,DIALYSIS PORT L CHEST Alcohol Use: None Drug Use: None Adult General Chief Complaint Chief Complaint: RECTAL BLEED HPI HPI Patient is a 26 year old female who presents with complaint of rectal bleeding. Patient states that she started having spotting over the past week that was present when she would clean herself after having a bowel movement. She also noticed small amounts of blood mixed with stool. Patient states that she went to dialysis today and after dialysis had a bowel movement with a significant amount of blood present. Patient states that she has history of gastroparesis, diabetes mellitus type 2, end-stage renal disease. And history of constipation secondary to narcotic pain medication use. The patient states that she is not having any pain associated with her rectal bleeding. Patient does have nausea but has not had any vomiting or fever. Patient came to the emergency department for evaluation as she has not had any history of GI bleeding in the past. Review of Systems Review of Systems Constitutional: Denies fever or chills [] Eyes: Denies change in visual acuity, redness, or eye pain [] HENT: Denies nasal congestion or sore throat [] Respiratory: Denies cough or shortness of breath [] Cardiovascular: Denies chest pain or edema [] GI: Place stools, nausea, constipation, denies abdominal pain [] : Denies dysuria or hematuria [] Musculoskeletal: Denies back pain or joint pain [] Integument: Denies rash or skin lesions [] Neurologic: Denies headache, focal weakness or sensory changes [] Allergies Allergies Allergies Coded Allergies Type Severity Reaction Last Updated Verified lurasidone Allergy Severe 04/15/16 Yes Physical Exam Physical Exam Constitutional: Alert, obese, afebrile, no acute distress. [] HENT: Normocephalic, atraumatic, bilateral external ears normal, oropharynx moist, no oral exudates, nose normal. [] Eyes: PERRLA, EOMI, conjunctiva normal, no discharge. [] Neck: Normal range of motion, no tenderness, supple, no stridor. [] Cardiovascular:Heart rate regular rhythm, no murmur [] Lungs & Thorax: Bilateral breath sounds clear to auscultation [] Abdomen: Bowel sounds normal, soft, no tenderness, no masses, no pulsatile masses. Rectal: Mild erythema and excoriation present at a local opening, tender on exam , no gross blood on exam [] Skin: Warm, dry, no erythema, no rash. [] Back: No tenderness, no CVA tenderness. [] Extremities: No tenderness, no cyanosis, no clubbing, ROM intact, no edema. [] Neurologic: Alert and oriented X 3, normal motor function, normal sensory function, no focal deficits noted. [] Current Patient Data Vital Signs Vital Signs Date Time Temp Pulse Resp B/P Pulse Ox O2 Delivery O2 Flow Rate FiO2 09/11/16 13:14 97.8 101 20 100/54 96 Room Air 97.8 Lab Values Laboratory Tests Test 09/11/16 14:20 09/11/16 14:55 Stool Occult Blood Positive (NEG) White Blood Count 9.0x10^3/uL (4.0-11.0) Red Blood Count 3.05x10^6/uL (3.50-5.40) L Hemoglobin 9.8g/dL (12.0-15.5) L Hematocrit 28.6% (36.0-47.0) L Mean Corpuscular Volume 94fL (79-100) Mean Corpuscular Hemoglobin 32pg (25-35) Mean Corpuscular Hemoglobin Concent 34g/dL (31-37) Red Cell Distribution Width 15.5% (11.5-14.5) H Platelet Count 237x10^3/uL (140-400) Neutrophils (%) (Auto) 82% (31-73) H Lymphocytes (%) (Auto) 13% (24-48) L Monocytes (%) (Auto) 4% (0-9) Eosinophils (%) (Auto) 1% (0-3) Basophils (%) (Auto) 1% (0-3) Neutrophils # (Auto) 7.4x10^3uL (1.8-7.7) Lymphocytes # (Auto) 1.2x10^3/uL (1.0-4.8) Monocytes # (Auto) 0.3x10^3/uL (0.0-1.1) Eosinophils # (Auto) 0.0x10^3/uL (0.0-0.7) Basophils # (Auto) 0.1x10^3/uL (0.0-0.2) Sodium Level 140mmol/L (136-145) Potassium Level 4.0mmol/L (3.5-5.1) Chloride Level 98mmol/L (98-107) Carbon Dioxide Level 29mmol/L (21-32) Anion Gap 13 (6-14) Blood Urea Nitrogen 21mg/dL (7-20) H Creatinine 2.3mg/dL (0.6-1.0) H Estimated GFR (Cockcroft-Gault) 25.4 Glucose Level 279mg/dL (70-99) H Calcium Level 8.8mg/dL (8.5-10.1) Serum Test, Qualitative Negative (NEG) Laboratory Tests 09/11/16 14:55 Laboratory Tests 09/11/16 14:55 EKG EKG Not performed [] Radiology/Procedures Radiology/Procedures 3 view acute abdominal series interpreted by me: No pulmonary infiltrates or effusions, left subclavian dialysis catheter in satisfactory position, nonobstructive bowel gas pattern, no free air under the diaphragm [] Course & Med Decision Making Course & Med Decision Making Pertinent Labs and Imaging studies reviewed. (See chart for details) The patient appears in no acute distress and vital signs remained stable throughout the patient's emergency department stay. Patient had no further episodes of bloody stools while in the emergency department. The patient had no visible gross blood but did have a positive fecal occult test. Patient's hemoglobin stable at 9.8. The patient's rectal bleeding likely due to constipation. The patient also received heparin earlier today for dialysis which may have contributed to the larger volume of visible blood with bowel movement, however there does not appear to be any sustained bleeding at this time. Recommended follow-up in 2 days the patient's primary doctor. Patient also states that she has an appointment with gastroenterology later this month. Recommended that the patient increase her Colace to twice a day and to return to the emergency department for any worsening symptoms. Patient voiced understanding and in agreement with treatment plan. Dragon Disclaimer Dragon Disclaimer This electronic medical record was generated, in whole or in part, using a voice recognition dictation system. Departure Departure Impression: Primary Impression: Rectal bleeding Disposition: 01 HOME, SELF-CARE Condition: STABLE Referrals: SANDRO DORANTES MD (PCP) MARIO ZAMBRANO MD Patient Instructions: Rectal Bleeding Additional Instructions: Follow-up with your primary doctor in 2 days. Increase your use of stool softener to twice a day. Be sure to follow-up with your bath mix operator at the next available appointment if you have persistent but stable rectal bleeding. Return to the emergency department for any worsening bleeding or the development of any other worrisome symptoms including fever, severe pain, vomiting, lightheadedness, or any other worrisome symptoms. ROLANDA TOBIN MD Sep 11, 2016 15:29
--- NOTE | 2016-09-12 09:13 | RAD ---
Indication: Nausea, gastroparesis. Technique: Abdominal series with chest radiograph contains 4 images. Comparison is from April 13, 2016. There is also a chest radiograph from August 05, 2016. Findings: The lungs are clear. The heart is not enlarged and there is no heart failure. Left IJ dialysis access is noted. Bowel gas pattern is nonobstructive. There is no free air. There are clips in the right upper quadrant. Impression: Nonobstructive bowel gas pattern.
== END 2016-09-11 16:34 | disposition home or self-care (01) ==
LOC: ER 13:11
DX: K62.5 Hemorrhage of anus and rectum (principal); E11.22 Type 2 diabetes mellitus with diabetic chronic kidney disease; I12.0 Hypertensive chronic kidney disease with stage 5 chronic kidney disease or end stage renal disease; N18.6 End stage renal disease; K31.84 Gastroparesis; F41.9 Anxiety disorder, unspecified; F32.9 Major depressive disorder, single episode, unspecified; Z90.49 Acquired absence of other specified parts of digestive tract; Z99.2 Dependence on renal dialysis; Z88.8 Allergy status to other drugs, medicaments and biological substances
CPT/HCPCS: 36415; 74022; 80048; 82274; 84703; 85027; 99285-25

== ENCOUNTER 2016-09-30 13:55 | Outpatient (CLI) | payer OTHER ==
[~2016-09-30] VITALS: Ht 154.9 cm; Wt 111.6 kg
[2016-09-30 14:23] LABS: BASO # 0.1 x10^3/uL (0.0-0.2); BASO % 1 % (0-3); EOS % 1 % (0-3); HEMATOCRIT 30.4 % (36.0-47.0); HEMOGLOBIN 10.4 g/dL (12.0-15.5); LYMPH # 1.9 x10^3/uL (1.0-4.8); LYMPH % 27 % (24-48); MEAN CORPUSCULAR HEMOGLOBIN 32 pg (25-35); MEAN CORPUSCULAR HGB CONC 34 g/dL (31-37); MEAN CORPUSCULAR VOLUME 95 fL (79-100); MONO % 4 % (0-9); NEUT % 67 % (31-73); PLATELET COUNT 255 x10^3/uL (140-400); RED BLOOD COUNT 3.19 x10^6/uL (3.50-5.40); RED CELL DISTRIBUTION WIDTH 15.7 % (11.5-14.5); WHITE BLOOD COUNT 6.8 x10^3/uL (4.0-11.0)
[2016-09-30 14:30] VITALS: BP 167/90
[2016-09-30 14:37] LABS: INR 0.9 (0.8-1.1)
[2016-09-30] MEDS ORDERED: LIDOCAINE 2%/EPI 1:100,000 20 ML VIAL. ONE (15:28)
[2016-09-30] MEDS ORDERED: HEPARIN for IV BOLUS 10,000 UNIT/10 ML VIAL. ONE (15:28)
[2016-09-30] MEDS ORDERED: FENTANYL PF 100 MCG/2 ML VIAL. ONE (15:51)
[2016-09-30] MEDS ORDERED: MIDAZOLAM HCL/PF 2 MG/2 ML VIAL. ONE (15:51)
[2016-09-30] MEDS ORDERED: CEFAZOLIN 1GM IVPB FOR OMNI 50 ML IV ONE (15:51)
[2016-09-30] MEDS ORDERED: FENTANYL PF 100 MCG/2 ML VIAL. IV ONE (16:15)
[2016-09-30] MEDS ORDERED: MIDAZOLAM HCL/PF 2 MG/2 ML VIAL. IV ONE (16:15)
[2016-09-30] MEDS ORDERED: LIDOCAINE 2%/EPI 1:100,000 20 ML VIAL. IJ ONE (16:15)
[2016-09-30 16:54] VITALS: BP 212/99
[2016-09-30 17:05] VITALS: BP 185/84
[2016-09-30 17:19] VITALS: BP 187/79
[2016-09-30 17:40] VITALS: BP 169/78
--- NOTE | 2016-09-30 18:10 | PDOC ---
MODERATE SEDATION ASSESSMENT RISKS/ALTERNATIVES Risks/Alternatives Risks and alternatives of this type of sedation and procedure discussed with: RISK/ALTERNATIVES: Patient H & P ON CHART H & P H & P on chart and reviewed for co-morbid conditions and appropriate labs. H&P ON CHART: Yes STATUS PREG STATUS ASSESSED: Yes MEDS/ALLERGIES REVIEWED Meds/Allergies Reviewed Medications and Allergies including time and route of recently administered narcotics and sedatives. MEDS/ALLERGIES REVIEWED: Yes ASA RATING ASA RATING: II AIRWAY ASSESSMENT Airway Assessment Airway patency, oral function limitations, presence of caps, crowns, dentures, partials, and ability to extend neck assessed. AIRWAY ASSESSMENT: Yes MALLAMPATI SCORE MALLAMPATI SCORE: III PRE-SEDATION ASSESSMENT PRE-SEDATION ASSESSMENT: Yes ZOIE AVELAR MD Sep 30, 2016 18:10
--- NOTE | 2016-09-30 18:15 | PDOC1 ---
History and Physical Date of Procedure Date of Admission 09/30/16 Procedure Procedure Sono/fluoro guided right IJ tunneled HDC insertion Removal of non-functioning left IJ tunneled HDC Indication Indication 26 YO female with ESRD. AV access not mature. Tunneled left IJ HDC non- functioning. Tunneled HDC replacement requested by Renal. Past Medical History Past Medical History See Nursing Pre procedure PMH Past Surgical History Past Surgical History See Nursing Pre Procedure PSH Current Medications Current Medications Current Medications Lidocaine/ Epinephrine (Xylocaine 2%-Epi 1:100,000) 20 ml STK-MED ONCE .ROUTE ; Start 09/30/16 at 15:28; Stop 09/30/16 at 15:29; Status DC Heparin Sodium (Porcine) 80637 unit 10,000 unit STK-MED ONCE .ROUTE ; Start 09/30 at 15:28; Stop 09/30/16 at 15:29; Status DC Heparin Sodium/ Sodium Chloride 500 ml @ As Directed STK-MED ONCE .ROUTE ; Start 09/30/16 at 15:28; Stop 09/30/16 at 15:29; Status DC Fentanyl Citrate (Fentanyl 2ml Vial) 100 mcg STK-MED ONCE .ROUTE ; Start at 15:51; Stop 09/30/16 at 15:52; Status DC Midazolam HCl 2 mg 2 mg STK-MED ONCE .ROUTE ; Start 09/30/16 at 15:51; Stop at 15:52; Status DC Cefazolin Sodium (Ancef 1gm Ivpb For Omni) 50 ml @ As Directed STK-MED ONCE IV ; Start 09/30/16 at 15:51; Stop 09/30/16 at 15:52; Status DC Heparin Sodium/ Sodium Chloride 1,000 unit 1X ONCE IART Last administered on 16:51; Start 09/30/16 at 16:15; Stop 09/30/16 at 16:16; Status DC Midazolam HCl (Versed) 2 mg 1X ONCE IV Last administered on 09/30/16 16:53; Start 09/30/16 at 16:15; Stop 09/30/16 at 16:16; Status DC Fentanyl Citrate (Fentanyl 2ml Vial) 100 mcg 1X ONCE IV Last administered on 16:53; Start 09/30/16 at 16:15; Stop 09/30/16 at 16:16; Status DC Lidocaine/ Epinephrine (Xylocaine 2%-Epi 1:100,000) 20 ml 1X ONCE IJ Last administered on 09/30/16 16:52; Start 09/30/16 at 16:15; Stop 09/30/16 at 16:16; Status DC Heparin Sodium (Porcine) (Heparin Sodium) 2,600 unit 1X ONCE INT CAT Last administered on 09/30/16 16:54; Start 09/30/16 at 16:30; Stop 09/30/16 at 16:31; Status DC Active Scripts Active Augmentin 875-125 Tablet (Amoxicillin/Potassium Clav) 1 Each Tablet 1 Tab PO BID Miralax (Polyethylene Glycol 3350) 17 Gm Powd.pack 17 Gm PO PRN DAILY PRN Metoclopramide Hcl 10 Mg Tablet 10 Mg PO TIDBFRMEAL Reported Novolog (Insulin Aspart) 100 Unit/1 Ml Cartridge 20 Unit SQ TIDWMEALS Dionisio-Tab (Erythromycin Base) 250 Mg Tablet.dr 250 Mg PO BID Dialyvite 800 With Zinc (Vitamin B Comp W-C/Fa/Zinc) 0.8 Mg Tablet 0.8 Mg PO DAILY Escitalopram Oxalate 20 Mg Tablet 1 Tab PO DAILY Fish Oil (Smith-3 Fatty Acids) 300 Mg Capsule 300 Mg PO DAILY Colace (Docusate Sodium) 100 Mg Capsule 1 Cap PO DAILY Cyclobenzaprine Hcl 10 Mg Tablet 1 Tab PO DAILY Abilify (Aripiprazole) 20 Mg Tablet 20 Mg PO DAILY Lidoderm (Lidocaine) 700 Mg Adh..patch 1 Patch TP DAILY Percocet 5-325 Mg Tablet (Oxycodone/Acetaminophen) 1 Each Tablet 1 Tab PO PRN Q4 -6HRS PRN Metolazone 5 Mg Tablet 5 Mg PO DAILY Lamotrigine 100 Mg Tablet 1 Tab PO BID Zofran (Ondansetron Hcl) 4 Mg Tablet 4 Mg PO TID PRN Essential Daily (Multivit With Calcium,Iron,Min) 1 Each Tablet 1 Each PO DAILY Lasix (Furosemide) 80 Mg Tablet 80 Mg PO TID Trinessa (Norgestimate-Ethinyl Estradiol) 1 Each Tablet 1 Tab PO DAILY Phoslo (Calcium Acetate) 667 Mg Capsule 1,334 Mg PO TIDWMEALS Proair Hfa Inhaler (Albuterol Sulfate) 8.5 Gm Hfa.aer.ad 1 Puff INH PRN Q6HRS PRN Tri-Sprintec (Norgestimate-Ethinyl Estradiol) 1 Each Tablet 1 Tab PO DAILY Labetalol Hcl 100 Mg Tablet 1 Tab PO BID Humalog Mix 75-25 Vial (Insulin Npl/Insulin Lispro) 100 Unit/1 Ml Vial 15 Unit SQ TIDAC Lantus Solostar (Insulin Glargine,Hum.rec.anlog) 100 Unit/1 Ml Insuln.pen 25 Unit SQ QHS Allergies Allergies: Coded Allergies: lurasidone (Verified Allergy, Severe, 04/15/16) Rash, seizure (due to combination with other medications per patient-does not take any longer due to reaction) Physical Exam Vital Signs Vital Signs Date Time Temp Pulse Resp B/P Pulse Ox O2 Delivery O2 Flow Rate FiO2 09/30/16 17:40 99 16 100 Room Air 2.0 09/30/16 14:30 98.1 167/90 98.1 Lungs: Clear to auscultation Heart: Regular rate Psych/Mental Status: Mental status NL Assessment Assessment ESRD with immature AV access and with nonfunctioning left IJ tunneled HDC Problems: Plan Plan Sono/fluoro guided right IJ tunneled HDC insertion Removal nonfunctioning left IJ tunneled HDC ZOIE AVELAR MD Sep 30, 2016 18:15
--- NOTE | 2016-09-30 18:19 | PDOC ---
Exam Treatment Supervisor Treatment Supervisor Hillary Meal Attendant Meal Attendant Cody Degroot Pre-Procedure Diagnosis Pre-Procedure Diagnosis 26 YO female with ESRD, immature AV access, and nonfunctioning left IJ tunneled HDC Post-Procedure Diagnosis Post-Procedure Diagnosis Same Procedure Performed Procedure Performed Sono/fluoro guided right IJ tunneled HDC insertion. Removal of left IJ nonfunctioning tunneled HDC. Type of Anesthesia Type of Anesthesia Local + Mod sedation Estimated Blood Loss EBL: Minimal Specimens Specimans 15.5F 28cm Left IJ DuraMax tunneled HDC removed and discarded Drain/Tubes Drains/Tubes 15.5F 24cm right IJ DuraMax tunneled HDC inserted Condition of Patient Condition of Patient Stable. No,apparent complication. Disposition Disposition Home from [facility] post recovery, if no bleeding or other issues. F/u with Renal. OK to use new rt IJ tunneled HDC. Full report to follow. ZOIE AVELAR MD Sep 30, 2016 18:19
--- NOTE | 2016-10-01 07:13 | RAD ---
Ultrasound and fluoro guided placement of right IJ tunneled hemodialysis catheter Removal of left IJ tunneled hemodialysis catheter Indication: 26-year-old female with end-stage renal disease, with immature AV access, and with nonfunctioning left IJ tunneled hemodialysis catheter. Tunneled dialysis catheter replacement has been requested by renal. Fluoro time: 1.7 minutes Kerma-Area Product: 11 Gycm2 Moderate sedation: 50 minutes moderate sedation was provided utilizing a total of 4 mg Versed and 200 mcg fentanyl, IV. The patient was appropriately monitored by a qualified independent observer throughout the time of moderate sedation. Antibiotic: A single dose of Ancef was administered within 1 hour of the procedure start time. Sterility: All elements of maximal sterile barrier technique, including the use of a cap, mask, sterile gown, sterile gloves, large sterile sheet, appropriate hand hygiene, and 2% chlorhexidine for cutaneous antisepsis (or acceptable alternative antiseptic per current guidelines) were utilized. Consent: The procedure was explained in its entirety to the patient and/or the patient's designated direct sales representative by a member of the treatment team. This included a discussion of risks and benefits and commonly accepted alternatives to the procedure, as well as expected consequences of no treatment at all. Discussion of risks included, but was not limited to, those that are most frequent and those that are rare, but possibly severe or life-threatening, as well as the possibility of unforeseen complications. Procedure: Informed consent was obtained from the patient. She was placed supine on the angiography table. Moderate sedation was provided with IV Versed and fentanyl. 1 g Ancef was given IV, prophylactically. Right IJ tunneled dialysis catheter insertion: Preliminary ultrasound examination of right neck revealed wide patency of right internal jugular vein, which was documented with a hard copy ultrasound image. Right neck and upper chest were then prepped and draped in the usual sterile fashion, utilizing all elements of maximal sterile barrier technique, as described above. Using aseptic technique and local anesthesia, a small skin incision was made lateral to right internal jugular vein, just above clavicle. Using aseptic technique, local anesthesia, and direct ultrasound guidance, a micropuncture needle was successfully introduced into right internal jugular vein. The micropuncture needle was then exchanged over a microguidewire for a micropuncture sheath, through which an Amplatz wire was advanced into IVC, under fluoroscopic control. A second small skin incision was then made along upper anterior aspect of right chest. A subcutaneous tunnel was then fashioned between the right chest and supraclavicular incisions. A 15.5 F 24 cm Dura Max dialysis catheter was pulled through the subcutaneous tunnel from inferior to superior, utilizing the tunneling device provided. The right IJ venostomy tract was then sequentially dilated and the 15.5 Turkmen dialysis catheter was easily advanced centrally through a 16 Turkmen peel-away sheath, and was positioned with its tip at the level of upper right atrium utilizing fluoroscopic guidance. This catheter was demonstrated to flush and aspirate normally, was packed, and was secured at the right chest exit site utilizing 2-0 Prolene and sterile dressing. The small supraclavicular incision was closed with 4-0 Vicryl, Steri-Strips, and sterile dressing. Patient tolerated the procedure well without apparent complication. Satisfactory position of the dialysis catheter was confirmed with a single fluoroscopic spot image. Left IJ tunneled dialysis catheter removal: Following successful insertion of right IJ tunneled hemodialysis catheter, attention was turned to the left side. Left neck and chest were prepped and draped in the usual sterile fashion, utilizing all elements of maximal sterile barrier technique, as described above. Using aseptic technique and local anesthesia, retention cuff of the indwelling, nonfunctioning 15.5 Turkmen 28 cm dura Max left IJ tunneled hemodialysis catheter was freed from surrounding tissues utilizing a small mosquito hemostats introduced through the pre-existing chest wall exit site. The dialysis catheter was then easily removed utilizing gentle traction. A sterile dressing was applied. Hemostasis was achieved with manual pressure over left internal jugular vein. Patient tolerated the procedure well without apparent complication. Impression: 1. Successful, uneventful ultrasound and fluoroscopy guided insertion of right IJ 15.5 Turkmen 24 cm dura Max tunneled hemodialysis catheter, as described. 2. Successful, uneventful removal of nonfunctioning left IJ 15.5 Turkmen 28 cm dura Max tunneled hemodialysis catheter, as described.
== END 2016-09-30 17:44 | disposition home or self-care (01) ==
LOC: INTRAD 13:55
PROVIDERS: ATTEND Internal Medicine Nephrology
DX: E11.22 Type 2 diabetes mellitus with diabetic chronic kidney disease (principal); I12.0 Hypertensive chronic kidney disease with stage 5 chronic kidney disease or end stage renal disease; N18.6 End stage renal disease; Z99.2 Dependence on renal dialysis; D64.9 Anemia, unspecified; J45.909 Unspecified asthma, uncomplicated; E16.2 Hypoglycemia, unspecified
CPT/HCPCS: 36415; 36558; 36589; 76937; 77001; 85027; 85610; A4215; C1750; C1769; C1892; J2250; J3010; J3490

== ENCOUNTER 2017-05-30 23:44 | Inpatient (IN) | payer MEDICARE, OTHER ==
[~2017-05-30] VITALS: Ht 154.9 cm; Wt 107.7 kg
[~2017-05-30 23:44] MED LIST changes: +ARIP20TA5 PO; -ARIP20TA8 PO; +DOCU-109 PO; -DOCU-27 PO; -ESCI10TA PO; -ESCI20TA PO; +ESCITALOPRAM OX10 MG PO; +ESCITALOPRAM OX20 MG PO; +POLY17PO29 PO; -POLY17PO5 PO
[2017-05-31] MEDS ORDERED: fentaNYL PF VIAL 100 MCG/2 ML VIAL IV PRN ×2 (00:15→05:45)
--- NOTE | 2017-05-31 00:15 | PHYS DOC ---
Past Medical History Past Medical History: , Anxiety, Depression, Diabetes-Type II, Hypertension, Renal Failure, Other Additional Past Medical Histor: ESRD,GASTROPARESIS Past Surgical History: Cholecystectomy, Other Additional Past Surgical Histo: L FISTULA,DIALYSIS PORT L CHEST Alcohol Use: None Drug Use: None Adult General Chief Complaint Chief Complaint: CHEST PAIN HPI HPI Patient is a 27 year old female who presents with with sided chest pain that she says a 7 out of 10. According to her she's been on hemodialysis since July 23, 2016 at [facility] [address] Lassiter she started home dialysis in February and dialyzes every day. This morning she has discharge from the [facility] after spending 5 days in the hospital for DKA and UTI. She had a Port-A-Cath placed in her left hemithorax and was discharged home today. Tonight he hooked her up to dialysis and did about 2-2 and half hours she started complaining of shortness of breath and chest pain on the left side and went unresponsive for about 30 seconds. Currently she only complains of chest pain. She denies any nausea vomiting fevers or chills or abdominal pain. She does take a full dose aspirin daily. Review of Systems Review of Systems Constitutional: Denies fever or chills [] Eyes: Denies change in visual acuity, redness, or eye pain [] HENT: Denies nasal congestion or sore throat [] Respiratory: Denies cough or shortness of breath [] Cardiovascular: No additional information not addressed in HPI [] GI: Denies abdominal pain, nausea, vomiting, bloody stools or diarrhea [] : Denies dysuria or hematuria [] Musculoskeletal: Denies back pain or joint pain [] Integument: Denies rash or skin lesions [] Neurologic: Denies headache, focal weakness or sensory changes [] Endocrine: Denies polyuria or polydipsia [] All other systems were reviewed and found to be within normal limits, except as documented in this note. Current Medications Current Medications Current Medications Medications (Trade) Dose Ordered Sig/Sherine Start Time Stop Time Status Last Admin Dose Admin Fentanyl Citrate (Fentanyl 2ml Vial) 50 mcg PRN Q15MIN PRN 05/31/17 00:15 05/31/17 15:14 DC Allergies Allergies Allergies Coded Allergies Type Severity Reaction Last Updated Verified lurasidone Allergy Severe 04/15/16 Yes Physical Exam Physical Exam Constitutional: Well developed, well nourished, no acute distress, non-toxic appearance. [] HENT: Normocephalic, atraumatic, bilateral external ears normal, oropharynx moist, no oral exudates, nose normal. [] Eyes: PERRLA, EOMI, conjunctiva normal, no discharge. [] Neck: Normal range of motion, no tenderness, supple, no stridor. [] Cardiovascular:Heart rate regular rhythm, no murmur [] Lungs & Thorax: Bilateral breath sounds clear to auscultation [Port-A-Cath in the left hemithorax, no ecchymosis appreciated] Abdomen: Bowel sounds normal, soft, no tenderness, no masses, no pulsatile masses. [] Skin: Warm, dry, no erythema, no rash. [] Back: No tenderness, no CVA tenderness. [] Extremities: No tenderness, no cyanosis, no clubbing, ROM intact, no edema. [] Neurologic: Alert and oriented X 3, normal motor function, normal sensory function, no focal deficits noted. [] Psychologic: Affect normal, judgement normal, mood normal. [] Current Patient Data Vital Signs Vital Signs Date Time Temp Pulse Resp B/P (MAP) Pulse Ox O2 Delivery O2 Flow Rate FiO2 05/31/17 03:10 97 17 109/46 (67) 98 Room Air 05/30/17 23:52 98.2 98.2 Lab Values Laboratory Tests Test 05/30/17 23:55 05/31/17 01:17 Glucose (Fingerstick) 161 mg/dL (70-99) H White Blood Count 9.4 x10^3/uL (4.0-11.0) Red Blood Count 3.02 x10^6/uL (3.50-5.40) L Hemoglobin 10.2 g/dL (12.0-15.5) L Hematocrit 30.0 % (36.0-47.0) L Mean Corpuscular Volume 99 fL (79-100) Mean Corpuscular Hemoglobin 34 pg (25-35) Mean Corpuscular Hemoglobin Concent 34 g/dL (31-37) Red Cell Distribution Width 14.9 % (11.5-14.5) H Platelet Count 240 x10^3/uL (140-400) Neutrophils (%) (Auto) 79 % (31-73) H Lymphocytes (%) (Auto) 14 % (24-48) L Monocytes (%) (Auto) 5 % (0-9) Eosinophils (%) (Auto) 2 % (0-3) Basophils (%) (Auto) 1 % (0-3) Neutrophils # (Auto) 7.4 x10^3uL (1.8-7.7) Lymphocytes # (Auto) 1.3 x10^3/uL (1.0-4.8) Monocytes # (Auto) 0.5 x10^3/uL (0.0-1.1) Eosinophils # (Auto) 0.2 x10^3/uL (0.0-0.7) Basophils # (Auto) 0.0 x10^3/uL (0.0-0.2) Prothrombin Time 12.1 SEC (11.7-14.0) Prothrombin Time INR 1.0 (0.8-1.1) Sodium Level 135 mmol/L (136-145) L Potassium Level 4.8 mmol/L (3.5-5.1) Chloride Level 96 mmol/L (98-107) L Carbon Dioxide Level 27 mmol/L (21-32) Anion Gap 12 (6-14) Blood Urea Nitrogen 44 mg/dL (7-20) H Creatinine 6.5 mg/dL (0.6-1.0) H Estimated GFR (Cockcroft-Gault) 7.6 Glucose Level 209 mg/dL (70-99) H Calcium Level 9.4 mg/dL (8.5-10.1) Magnesium Level 0.0 mg/dL (1.8-2.4) L Total Bilirubin < 0.1 mg/dL (0.2-1.0) L Direct Bilirubin 0.1 mg/dL (0.0-0.2) Aspartate Amino Transferase (AST) 5 U/L (15-37) L Alanine Aminotransferase (ALT) < 6 U/L (14-59) L Alkaline Phosphatase 152 U/L (46-116) H Creatine Kinase 39 U/L (26-192) Creatine Kinase MB (Mass) 2.1 ng/mL (0.0-3.6) Creatine Kinase MB Relative Index 5.4 % (0-4) H Troponin I Quantitative < 0.017 ng/mL (0.000-0.055) PL-[id number] Natriuretic Peptide 1084 pg/mL (0-124) H Total Protein 7.3 g/dL (6.4-8.2) Albumin 3.3 g/dL (3.4-5.0) L Triglycerides Level 597 mg/dL (0-150) H Cholesterol Level 249 mg/dL (0-200) H LDL Cholesterol, Calculated mg/dL (0-100) VLDL Cholesterol, Calculated 119 mg/dL (0-40) H Non-HDL Cholesterol Calculated 212 mg/dL (0-129) H HDL Cholesterol 37 mg/dL (40-60) L Cholesterol/HDL Ratio 6.7 Lipase 270 U/L (73-393) Thyroid Stimulating Hormone (TSH) 1.037 uIU/mL (0.358-3.74) Laboratory Tests 05/31/17 01:17 Laboratory Tests 05/31/17 01:17 EKG EKG EKG shows sinus tachycardia [address] elevations or T-wave inversions appreciated, normal axis, QTC 429 ms, as interpreted by me. Radiology/Procedures Radiology/Procedures View chest x-ray did not show any focal consolidations, any abnormalities, or pneumothorax, as interpreted by me. A left Port-A-Cath noted Impressions: Chest pain end-stage renal disease Obesity Recent Port-A-Cath placement Diabetes Course & Med Decision Making Course & Med Decision Making Pertinent Labs and Imaging studies reviewed. (See chart for details) Chest x-ray doesn't show anything acute, EKG also nonacute. Patient's pain has improved. She is resting comfortably now. She's being admitted for nephrology consultation. I do not suspect that she has a PE as she is not tachypneic or hypoxic and she is not currently tachycardic. She likely has fluid overload and so needs some fluid removed. We'll refer to nephrology determine if she needs additional fluid removed. She's being admitted to the hospitalist with nephrology condition. She is in stable condition at this time. Interim orders have been written. Dragon Disclaimer Dragon Disclaimer This electronic medical record was generated, in whole or in part, using a voice recognition dictation system. Departure Departure Impression: Primary Impression: Chest pain Disposition: ADMITTED INPATIENT Admitting Physician: Rodriguez, Jocelyn Condition: STABLE ROSITA DUVALL MD May 31, 2017 00:15
[2017-05-31 01:26] LABS: BASO % 1 % (0-3); EOS % 2 % (0-3); HEMOGLOBIN 10.2 g/dL (12.0-15.5); LYMPH # 1.3 x10^3/uL (1.0-4.8); LYMPH % 14 % (24-48); MEAN CORPUSCULAR HEMOGLOBIN 34 pg (25-35); MEAN CORPUSCULAR HGB CONC 34 g/dL (31-37); MEAN CORPUSCULAR VOLUME 99 fL (79-100); MONO % 5 % (0-9); NEUT % 79 % (31-73); PLATELET COUNT 240 x10^3/uL (140-400); RED BLOOD COUNT 3.02 x10^6/uL (3.50-5.40); RED CELL DISTRIBUTION WIDTH 14.9 % (11.5-14.5); WHITE BLOOD COUNT 9.4 x10^3/uL (4.0-11.0)
[2017-05-31 01:35] LABS: PROTHROMBIN TIME PATIENT 12.1 SEC (11.7-14.0)
[2017-05-31 01:40] LABS: ANION GAP 12 (6-14); BLOOD UREA NITROGEN 44 mg/dL (7-20); CALCIUM 9.4 mg/dL (8.5-10.1); CARBON DIOXIDE 27 mmol/L (21-32); CHLORIDE 96 mmol/L (98-107); CREATININE 6.5 mg/dL (0.6-1.0); GFR 7.6; GLUCOSE 209 mg/dL (70-99); POTASSIUM 4.8 mmol/L (3.5-5.1); SODIUM 135 mmol/L (136-145)
[2017-05-31 01:46] LABS: ALK PHOS 152 U/L (46-116); DIRECT BILIRUBIN 0.1 mg/dL (0.0-0.2); TOTAL PROTEIN 7.3 g/dL (6.4-8.2)
[2017-05-31 01:54] LABS: CKMB MASS 2.1 ng/mL (0.0-3.6)
[2017-05-31 02:07] LABS: AST (SGOT) 5 U/L (15-37)
[2017-05-31 02:15] LABS: ALBUMIN 3.3 g/dL (3.4-5.0); ALT (SGPT) < 6 U/L (14-59); TOTAL BILIRUBIN < 0.1 mg/dL (0.2-1.0)
[2017-05-31 05:16] VITALS: BP 131/55
[2017-05-31] MEDS ORDERED: MORPHINE SULFATE 4 MG/ML DISP.SYRIN. IV PRN (05:45)
[2017-05-31] MEDS ORDERED: ONDANSETRON PF 4 MG/2 ML VIAL. IV PRN ×2 (05:45)
[2017-05-31] MEDS ORDERED: MAGNESIUM SULFATE 1GM 100 ML IV ONE (06:00)
[2017-05-31] MEDS ORDERED: MAGNESIUM SULFATE 4GM 100 ML IV ONE (06:00)
[2017-05-31] MEDS ORDERED: LAMO100T5 PO (06:26)
[2017-05-31] MEDS ORDERED: ASPI325T8 PO (06:26)
[2017-05-31] MEDS ORDERED: GABA-586 PO (06:26)
[2017-05-31] MEDS ORDERED: Fish Oil PO (06:26)
[2017-05-31] MEDS ORDERED: ASEN5TAB7 SL (06:26)
[2017-05-31] MEDS ORDERED: TRAM50TA PO (06:26)
[2017-05-31] MEDS ORDERED: FLUT1DIS3 IH (06:26)
[2017-05-31] MEDS ORDERED: Humalog (06:26)
[2017-05-31] MEDS ORDERED: LAMO200T3 PO (06:26)
--- NOTE | 2017-05-31 06:32 | EKG ---
[address] [place] [id number] Test Date: 2017-05-30 Test Time: 23:54:58 Pat Name: JANENE FISHER Department: Room: Gender: F Carton Liner: : 1990 Requested By: ROSITA DUVALL Order Number: [id number] Reading MD: Measurements Intervals [place] Rate: 103 P: 32 [place]: 134 QRS: 54 QRSD: 88 T: 42 QT: 326 QTc: 429 Interpretive Statements SINUS TACHYCARDIA NO SPECIFIC ECG ABNORMALITIES RI6.01 No previous ECG available for comparison
--- NOTE | 2017-05-31 07:10 | RAD ---
Portable chest, 05/31/2017: History: Chest pain Comparison is made to a study from 09/11/2016. A left Port-A-Cath is in place extending into the superior aspect of the right atrium. The heart size and pulmonary vascularity are normal. There is mild discoid atelectasis in the right upper lobe. The lungs are otherwise clear. There is no evidence of pleural fluid. IMPRESSION: Right upper lobe discoid atelectasis.
[2017-05-31 07:24] VITALS: BP 120/51
[2017-05-31] MEDS ORDERED: traMADol 50 MG TABLET PO PRN (09:00)
[2017-05-31] MEDS ORDERED: MAGNESIUM HYDROXIDE 2,400 MG/30 ML ORAL.SUSP. PO PRN (09:00)
[2017-05-31] MEDS: LIDOCAINE (700MG/PATCH) PATCH. TP SCH (09:00)
[2017-05-31] MEDS ORDERED: MORPHINE SULFATE 2 MG/ML DISP.SYRIN. IV PRN (09:00)
[2017-05-31] MEDS ORDERED: DOCUSATE SODIUM 100 MG CAPSULE. PO SCH (09:00)
[2017-05-31] MEDS ORDERED: 0.9 % SODIUM CHLORIDE 10 ML DISP.SYRIN. IV PRN (09:00)
[2017-05-31] MEDS: FUROSEMIDE 80 MG TABLET. PO SCH ×3 (09:00→20:42)
--- NOTE | 2017-05-31 09:50 | PDOC2 ---
MIKE WALKER HOUSEKEEPING AIDE 05/31/17 0950: CARDIAC CONSULT DATE OF CONSULT Date of Consult DATE: 05/31/17 TIME: 09:38 REASON FOR CONSULT Reason for Consult: CP REFERRING PHYSICIAN Referring Physician: Michael SOURCE Source: Chart review, Patient HISTORY OF PRESENT ILLNESS HISTORY OF PRESENT ILLNESS This is a pleasant 27 yo female admitted for complains of left chest pain. Reports that she was just discharge the other day from [facility]. She was treated over there for DKA and UTI. also portacath was placed to her left chest before discharge due to poor IV access. Pt also had VLADIMIR about 2 weeks ago and noted with PFO otherwise her results were normal accdg to . Pt is significant for in home HD 6 days a week which started 06/2016. She is presently awaiting for potential bariatric surgery since she needs to lose about 30-40 lbs before qualifying for renal transplant. Reports that last night 2.5 hours of having dialysis she started not feeling good. Her SBP dropped to 90s and her gave her back some fluid and her BP got better. After which she started having left chest pressure which at this time clearly reproducible with palpation. She also started feeling SOA and a little later she passed out about 30 seconds then came back. Denies any visual or auditory impairment. Denies any palpitations, or nausea. She did not complete her HD. Presently she is resting comfortably in bed without complaints till I started pressing on her left chest adjacent to her portacath. PAST MEDICAL HISTORY Cardiovascular: HTN Pulmonary: Asthma, Other (RICHI with CPAP) CENTRAL NERVOUS SYSTEM: Other (No pertinent history) GI: Other (gastroparesis) Heme/Onc: Anemia NOS Hepatobiliary: No pertinent hx Psych: Anxiety, Bipolar, Depression Musculoskeletal: Other (obesity) Rheumatologic: No pertinent hx Infectious disease: Other (MRSA?) ENT: Other (retinopathy) Renal/: Chronic renal failure, UTI Endocrine: Diabetes (2 with insulin pump) Dermatology: No pertinent hx PAST SURGICAL HISTORY Past Surgical History: Cholecystectomy, Other (LA dialysis fistula) FAMILY HISTORY Family History noncontributory to CV Family History: Diabetes, Hypertension SOCIAL HISTORY Smoke: <1 pack per day ALCOHOL: none Drugs: None Lives: with Family CURRENT MEDICATIONS CURRENT MEDICATIONS Current Medications Medications (Trade) Dose Ordered Sig/Sherine Route PRN Reason Start Time Stop Time Status Last Admin Dose Admin Ondansetron HCl (Zofran) 4 mg PRN Q8HRS PRN IV NAUSEA/VOMITING 05/31/17 05:45 06/01/17 05:44 05/31/17 06:00 Fentanyl Citrate (Fentanyl 2ml Vial) 50 mcg PRN Q2HR PRN IV PAIN 05/31/17 05:45 05/31/17 06:01 Magnesium Sulfate/ Dextrose 100 ml @ 25 mls/hr 1X ONCE IV 05/31/17 06:00 05/31/17 09:59 05/31/17 06:02 ALLERGIES ALLERGIES: Coded Allergies: lurasidone (Verified Allergy, Severe, 04/15/16) Rash, seizure (due to combination with other medications per patient-does not take any longer due to reaction) ROS Review of System 14 point ROS evaluated with pertinent positives noted per HPI PHYSICAL EXAM General: Alert, Oriented X3, Cooperative HEENT: Atraumatic, Mucous membr. moist/pink Lungs: Clear to auscultation, Normal air movement Heart: Regular rate (SR/ST), Other (distant heart sounds) Abdomen: Soft, Other (obese) Extremities: No cyanosis, Other (1+ bilateral LE pitting edema) Skin: No breakdown, No significant lesion Neuro: Normal speech, Sensation intact Psych/Mental Status: Mental status NL, Mood NL MUSCULOSKELETAL: Full range of motion without pain VITALS VITALS Vital Signs Date Time Temp Pulse Resp B/P (MAP) Pulse Ox O2 Delivery O2 Flow Rate FiO2 05/31/17 07:24 98.7 99 17 120/51 (74) 92 Room Air 98.7 LABS Lab: Laboratory Tests Test 05/30/17 23:55 05/31/17 01:17 05/31/17 05:11 05/31/17 08:56 Glucose (Fingerstick) 161 mg/dL (70-99) 305 mg/dL (70-99) 198 mg/dL (70-99) White Blood Count 9.4 x10^3/uL (4.0-11.0) Red Blood Count 3.02 x10^6/uL (3.50-5.40) Hemoglobin 10.2 g/dL (12.0-15.5) Hematocrit 30.0 % (36.0-47.0) Mean Corpuscular Volume 99 fL (79-100) Mean Corpuscular Hemoglobin 34 pg (25-35) Mean Corpuscular Hemoglobin Concent 34 g/dL (31-37) Red Cell Distribution Width 14.9 % (11.5-14.5) Platelet Count 240 x10^3/uL (140-400) Neutrophils (%) (Auto) 79 % (31-73) Lymphocytes (%) (Auto) 14 % (24-48) Monocytes (%) (Auto) 5 % (0-9) Eosinophils (%) (Auto) 2 % (0-3) Basophils (%) (Auto) 1 % (0-3) Neutrophils # (Auto) 7.4 x10^3uL (1.8-7.7) Lymphocytes # (Auto) 1.3 x10^3/uL (1.0-4.8) Monocytes # (Auto) 0.5 x10^3/uL (0.0-1.1) Eosinophils # (Auto) 0.2 x10^3/uL (0.0-0.7) Basophils # (Auto) 0.0 x10^3/uL (0.0-0.2) Prothrombin Time 12.1 SEC (11.7-14.0) Prothromb Time International Ratio 1.0 (0.8-1.1) Sodium Level 135 mmol/L (136-145) Potassium Level 4.8 mmol/L (3.5-5.1) Chloride Level 96 mmol/L (98-107) Carbon Dioxide Level 27 mmol/L (21-32) Anion Gap 12 (6-14) Blood Urea Nitrogen 44 mg/dL (7-20) Creatinine 6.5 mg/dL (0.6-1.0) Estimated GFR (Cockcroft-Gault) 7.6 Glucose Level 209 mg/dL (70-99) Calcium Level 9.4 mg/dL (8.5-10.1) Magnesium Level 0.0 mg/dL (1.8-2.4) Total Bilirubin < 0.1 mg/dL (0.2-1.0) Direct Bilirubin 0.1 mg/dL (0.0-0.2) Aspartate Amino Transf (AST/SGOT) 5 U/L (15-37) Alanine Aminotransferase (ALT/SGPT) < 6 U/L (14-59) Alkaline Phosphatase 152 U/L (46-116) Creatine Kinase 39 U/L (26-192) Creatine Kinase MB (Mass) 2.1 ng/mL (0.0-3.6) Creatine Kinase MB Relative Index 5.4 % (0-4) Troponin I Quantitative < 0.017 ng/mL (0.000-0.055) QV-Zqu-T-Type Natriuretic Peptide 1084 pg/mL (0-124) Total Protein 7.3 g/dL (6.4-8.2) Albumin 3.3 g/dL (3.4-5.0) Lipase 270 U/L (73-393) Thyroid Stimulating Hormone (TSH) 1.037 uIU/mL (0.358-3.74) ECHOCARDIOGRAM ECHOCARDIOGRAM <Conclusion> The left ventricle is normal size. Left ventricle systolic function is normal. The Ejection Fraction is 50-55%. There is no significant aortic valvular stenosis. Doppler and Color Flow revealed trace to mild mitral regurgitation. Doppler and Color Flow revealed mild tricuspid regurgitation. The PA pressure was estimated at 28 mmHg. There is no evidence of significant pericardial effusion. DATE: 04/14/16 1750 STRESS TEST STRESS TEST 03/2016 stress test per normal ASSESSMENT/PLAN ASSESSMENT/PLAN 1. Atypical chest pain: pressure like but reproducible. Doubt ACS. Initial troponin normal, EKG sinus tach without acute changes. 2. Syncope; occurred after reestablishing adequate BP. No hypoglycemia per . Lasting about 30 sec. Possibly vasovagal. 3. PFO; noted on VLADIMIR recently at [facility] 04/2017 4. Recent right chest portacath: due to poor IV access 5. ESRD: in home HD 6 days/ wk 6. HTN: controlled 7. DM: with insulin pump 8. HLP 9. Bipolar 10. Morbid obesity Recommendations 1. Moderate probability for PE, Will check DDIMER. 2. Trend troponin, lipid panel 3. Obtain echo reports from [facility]. 4. Fluid off loading per HD 5. Continue secondary prevention 6. Mg 0?, Recheck BMP and Mg and will replace as appropraite 7. Will also consider for event monitor pending results of pending tests. Problems: ROYA DEE MD 06/01/17 1122: CARDIAC CONSULT ALLERGIES ALLERGIES: Coded Allergies: lurasidone (Verified Allergy, Severe, 04/15/16) Rash, seizure (due to combination with other medications per patient-does not take any longer due to reaction) ASSESSMENT/PLAN ASSESSMENT/PLAN Patient seen and examined. Agree with above nurse practitioner note. Late entry for 05/31/2017 Patient known to us. Noncardiac chest pain. Supportive care. Thank you for this consultation. Problems: MIKE WALKER APRN May 31, 2017 09:50 ROYA DEE MD Jun 01, 2017 11:22
[2017-05-31] MEDS ORDERED: MULTIVITAMIN with MINERAL TABLET. PO SCH (10:00)
[2017-05-31] MEDS ORDERED: ASPIRIN 325 MG TABLET PO SCH (10:00)
[2017-05-31] MEDS ORDERED: ALBUTEROL SULFATE 2.5 MG/3 ML NEBU. NEB PRN (10:00)
[2017-05-31] MEDS ORDERED: FOLIC/VIT B COMP W-C (RENAL) TABLET. PO SCH (10:00)
[2017-05-31 10:16] LABS: CHOLESTEROL 249 mg/dL (0-200); HDLC 37 mg/dL (40-60); NON-HDL CHOLESTEROL 212 mg/dL (0-129); TRIGLYCERIDES 597 mg/dL (0-150)
[2017-05-31 10:17] LABS: CHOLESTEROL/HDL RATIO 6.7
--- NOTE | 2017-05-31 10:30 | PDOC1 ---
History and Physical Date of Admission Date of Admission 05/31/2017 Identification/Chief Complaint Chief Complaint Chest pain and shortness of breath Problems: (1) Chest pain (2) Hypertension due to end stage renal disease caused by type 2 diabetes mellitus, on dialysis Source Source: Caregiver, Patient (with assistance from signiificant other) History of Present Illness History of Present Illness 27 year old CF came in complaining of pressure like chest pain with shortness of breath last night. Patient was recently discharged from [facility] yesterday morning where she was there for DKA. Patient had a port placed on her left side of her chest and her was doing her dialysis when her blood pressure dropped to systolic 90s. Patient was given a 100cc bolus by her and then started complaining of pressure like chest pain and having a tough time breathing. Patient never had this pain before and patient had difficult time breathing and patient noted she wasn't responding and called the EMS. Patient stated the pain wasn't improving and nothing made it worse. Patient stated the location of the chest pain was under her left breast and non-radiating. Patient stated the nitroglycerin didn't help her with the pain. Patient states exertion does make the chest pain worse he breathing was worse but she has a history of Asthma. Patient currently denies any nausea, vomiting, abdominal pain. Past Medical History Pulmonary: Asthma Heme/Onc: Anemia NOS Psych: Anxiety, Bipolar, Depression ENT: Other (retinopathy) Renal/: Chronic renal failure Endocrine: Diabetes (2 with insulin pump) Past Surgical History Past Surgical History: Cholecystectomy, Other (LA dialysis fistula) Family History Family History: Diabetes, Hypertension Social History Smoke: <1 pack per day ALCOHOL: none Drugs: None Current Problem List Problem List Problems Medical Problems: (1) Chest pain Status: Acute Current Medications Current Medications Current Medications Medications (Trade) Dose Ordered Sig/Sherine Start Time Stop Time Status Last Admin Dose Admin Albuterol Sulfate (Ventolin Neb Soln) 2.5 mg PRN Q4HRS PRN 05/31/17 10:00 Aripiprazole (Abilify) 10 mg QHS 05/31/17 21:00 Aspirin (Darlene Aspirin) 325 mg DAILY08 05/31/17 10:00 Budesonide (Pulmicort) 0.5 mg RTBID 05/31/17 20:00 Calcium Acetate (Phoslo) 1,334 mg TIDWMEALS 05/31/17 12:00 Citalopram Hydrobromide (CeleXA) 20 mg DAILYWSUP 05/31/17 17:00 Docusate Sodium (Colace) 100 mg DAILY 05/31/17 09:00 Erythromycin (E-Mycin) 250 mg BIDAC 05/31/17 16:30 Fentanyl Citrate (Fentanyl 2ml Vial) 50 mcg PRN Q2HR PRN 05/31/17 05:45 05/31/17 06:01 50 MCG Furosemide (Lasix) 80 mg TID 05/31/17 09:00 Gabapentin (Neurontin) 300 mg TID 05/31/17 14:00 Heparin Sodium (Porcine) (Heparin Sq) 5,000 unit Q8HRS 05/31/17 14:00 Labetalol HCl (Trandate) 100 mg BID 05/31/17 10:00 Lidocaine (Lidoderm) 1 patch DAILY 05/31/17 09:00 Magnesium Hydroxide (Milk Of Magnesia) 2,400 mg PRN Q12HR PRN 05/31/17 09:00 Magnesium Sulfate/ Dextrose 100 ml @ 25 mls/hr 1X ONCE 05/31/17 06:00 05/31/17 09:59 DC 05/31/17 06:02 25 MLS/HR Metoclopramide HCl (Reglan) 10 mg TIDBFRMEAL 05/31/17 11:30 Morphine Sulfate 2 mg PRN Q4HRS PRN 05/31/17 09:00 Multivitamins (Thera M Plus) 1 tab DAILY 05/31/17 10:00 Ondansetron HCl (Zofran) 4 mg PRN Q8HRS PRN 05/31/17 05:45 Oxycodone/ Acetaminophen (Percocet 5/325) 1 tab PRN Q6HRS PRN 05/31/17 09:00 Sodium Chloride (Normal Saline Flush) 3 ml PRN DAILY PRN 05/31/17 09:00 Tramadol HCl (Ultram) 50 mg PRN Q4HRS PRN 05/31/17 09:00 Vitamin B Complex/ Vitamin C (Christelle-Robert) 1 tab DAILY 05/31/17 10:00 Allergies Allergies Allergies Coded Allergies Type Severity Reaction Last Updated Verified lurasidone Allergy Severe 04/15/16 Yes ROS Review of System CONSTITUTIONAL: No fever or chills EYES: No recent changes SKIN: No rash or itching CARDIOVASCULAR: + chest pain, no syncope RESPIRATORY: +shortness of breath GASTROINTESTINAL: No nausea, vomiting or abdominal pain NEUROLOGICAL: No headaches or weakness ENDOCRINE: No cold or heat intolerance GENITOURINARY: No urgency or frequency of urination MUSCULOSKELETAL: No back pain or joint pain LYMPHATICS: No enlarged lymph nodes PSYCHIATRIC: No anxiety or depression Physical Exam Physical Exam GEN.: No apparent distress. Alert and oriented. HEENT: Head is normocephalic, atraumatic NECK: Supple. LUNGS: Clear to auscultation, left chest wall tenderness, Left chest port HEART: RRR, S1, S2 present. Peripheral pulses intact ABDOMEN: Soft, nontender. Positive bowel sounds. EXTREMITIES: Without any cyanosis. NEUROLOGIC: Normal speech, normal tone PSYCHIATRIC: Normal affect, normal mood. SKIN: No ulcerations Vitals Vitals Vital Signs Date Time Temp Pulse Resp B/P (MAP) Pulse Ox O2 Delivery O2 Flow Rate FiO2 05/31/17 07:24 98.7 99 17 120/51 (74) 92 Room Air 98.7 Labs Labs Laboratory Tests Test 05/30/17 23:55 05/31/17 01:17 05/31/17 05:11 05/31/17 08:56 Glucose (Fingerstick) 161 mg/dL (70-99) 305 mg/dL (70-99) 198 mg/dL (70-99) White Blood Count 9.4 x10^3/uL (4.0-11.0) Red Blood Count 3.02 x10^6/uL (3.50-5.40) Hemoglobin 10.2 g/dL (12.0-15.5) Hematocrit 30.0 % (36.0-47.0) Mean Corpuscular Volume 99 fL (79-100) Mean Corpuscular Hemoglobin 34 pg (25-35) Mean Corpuscular Hemoglobin Concent 34 g/dL (31-37) Red Cell Distribution Width 14.9 % (11.5-14.5) Platelet Count 240 x10^3/uL (140-400) Neutrophils (%) (Auto) 79 % (31-73) Lymphocytes (%) (Auto) 14 % (24-48) Monocytes (%) (Auto) 5 % (0-9) Eosinophils (%) (Auto) 2 % (0-3) Basophils (%) (Auto) 1 % (0-3) Neutrophils # (Auto) 7.4 x10^3uL (1.8-7.7) Lymphocytes # (Auto) 1.3 x10^3/uL (1.0-4.8) Monocytes # (Auto) 0.5 x10^3/uL (0.0-1.1) Eosinophils # (Auto) 0.2 x10^3/uL (0.0-0.7) Basophils # (Auto) 0.0 x10^3/uL (0.0-0.2) Prothrombin Time 12.1 SEC (11.7-14.0) Prothromb Time International Ratio 1.0 (0.8-1.1) Sodium Level 135 mmol/L (136-145) Potassium Level 4.8 mmol/L (3.5-5.1) Chloride Level 96 mmol/L (98-107) Carbon Dioxide Level 27 mmol/L (21-32) Anion Gap 12 (6-14) Blood Urea Nitrogen 44 mg/dL (7-20) Creatinine 6.5 mg/dL (0.6-1.0) Estimated GFR (Cockcroft-Gault) 7.6 Glucose Level 209 mg/dL (70-99) Calcium Level 9.4 mg/dL (8.5-10.1) Magnesium Level 0.0 mg/dL (1.8-2.4) Total Bilirubin < 0.1 mg/dL (0.2-1.0) Direct Bilirubin 0.1 mg/dL (0.0-0.2) Aspartate Amino Transf (AST/SGOT) 5 U/L (15-37) Alanine Aminotransferase (ALT/SGPT) < 6 U/L (14-59) Alkaline Phosphatase 152 U/L (46-116) Creatine Kinase 39 U/L (26-192) Creatine Kinase MB (Mass) 2.1 ng/mL (0.0-3.6) Creatine Kinase MB Relative Index 5.4 % (0-4) Troponin I Quantitative < 0.017 ng/mL (0.000-0.055) KI-Vup-Y-Type Natriuretic Peptide 1084 pg/mL (0-124) Total Protein 7.3 g/dL (6.4-8.2) Albumin 3.3 g/dL (3.4-5.0) Lipase 270 U/L (73-393) Thyroid Stimulating Hormone (TSH) 1.037 uIU/mL (0.358-3.74) Laboratory Tests Test 05/30/17 23:55 05/31/17 01:17 05/31/17 05:11 05/31/17 08:56 Glucose (Fingerstick) 161 mg/dL (70-99) 305 mg/dL (70-99) 198 mg/dL (70-99) White Blood Count 9.4 x10^3/uL (4.0-11.0) Red Blood Count 3.02 x10^6/uL (3.50-5.40) Hemoglobin 10.2 g/dL (12.0-15.5) Hematocrit 30.0 % (36.0-47.0) Mean Corpuscular Volume 99 fL (79-100) Mean Corpuscular Hemoglobin 34 pg (25-35) Mean Corpuscular Hemoglobin Concent 34 g/dL (31-37) Red Cell Distribution Width 14.9 % (11.5-14.5) Platelet Count 240 x10^3/uL (140-400) Neutrophils (%) (Auto) 79 % (31-73) Lymphocytes (%) (Auto) 14 % (24-48) Monocytes (%) (Auto) 5 % (0-9) Eosinophils (%) (Auto) 2 % (0-3) Basophils (%) (Auto) 1 % (0-3) Neutrophils # (Auto) 7.4 x10^3uL (1.8-7.7) Lymphocytes # (Auto) 1.3 x10^3/uL (1.0-4.8) Monocytes # (Auto) 0.5 x10^3/uL (0.0-1.1) Eosinophils # (Auto) 0.2 x10^3/uL (0.0-0.7) Basophils # (Auto) 0.0 x10^3/uL (0.0-0.2) Prothrombin Time 12.1 SEC (11.7-14.0) Prothromb Time International Ratio 1.0 (0.8-1.1) Sodium Level 135 mmol/L (136-145) Potassium Level 4.8 mmol/L (3.5-5.1) Chloride Level 96 mmol/L (98-107) Carbon Dioxide Level 27 mmol/L (21-32) Anion Gap 12 (6-14) Blood Urea Nitrogen 44 mg/dL (7-20) Creatinine 6.5 mg/dL (0.6-1.0) Estimated GFR (Cockcroft-Gault) 7.6 Glucose Level 209 mg/dL (70-99) Calcium Level 9.4 mg/dL (8.5-10.1) Magnesium Level 0.0 mg/dL (1.8-2.4) Total Bilirubin < 0.1 mg/dL (0.2-1.0) Direct Bilirubin 0.1 mg/dL (0.0-0.2) Aspartate Amino Transf (AST/SGOT) 5 U/L (15-37) Alanine Aminotransferase (ALT/SGPT) < 6 U/L (14-59) Alkaline Phosphatase 152 U/L (46-116) Creatine Kinase 39 U/L (26-192) Creatine Kinase MB (Mass) 2.1 ng/mL (0.0-3.6) Creatine Kinase MB Relative Index 5.4 % (0-4) Troponin I Quantitative < 0.017 ng/mL (0.000-0.055) QN-Lky-N-Type Natriuretic Peptide 1084 pg/mL (0-124) Total Protein 7.3 g/dL (6.4-8.2) Albumin 3.3 g/dL (3.4-5.0) Lipase 270 U/L (73-393) Thyroid Stimulating Hormone (TSH) 1.037 uIU/mL (0.358-3.74) Images Images Chest X-ray reviewed was unremarklable VTE Prophylaxis Ordered VTE Prophylaxis Devices: Contraindicated VTE Pharmacological Prophylaxi: Yes Assessment/Plan Assessment/Plan Chest Pain- EKG wnl, trend troponins, cardiology consult pending ESRD due to DM- On HD, nephrology consulted DM II- Patient manages own insulin pump, accuchecks ACHS Hypertension- Resume Home medications Bipolar- Lamictal and Abilify DVT ppx- Heparin SC Problem Qualifiers (1) Chest pain: Chest pain type: chest pain on breathing Qualified Codes: R07.1 - Chest pain on breathing KENDRICK ALEMAN MD May 31, 2017:30
[2017-05-31 10:34] VITALS: BP 117/57
--- NOTE | 2017-05-31 10:53 | PDOC2 ---
CONSULT Date of Consult Date of Consult DATE: 05/31/17 TIME: 10:26 Reason for Consult Reason for Consult: ESRD - HHD Referring Physician Referring Physician: Dr Rodriguez Identification/Chief Complaint Chief Complaint CP; ? Pre-Syncope Problems: Source Source: Chart review, Patient History of Present Illness Reason for Visit: as dictated Past Medical History Pulmonary: Asthma Heme/Onc: Anemia NOS Psych: Anxiety, Bipolar, Depression ENT: Other (retinopathy) Renal/: Chronic renal failure Endocrine: Diabetes (2 with insulin pump) Past Surgical History Past Surgical History: Cholecystectomy, Other (LA dialysis fistula) Family History Family History: Diabetes, Hypertension Social History <1 pack per day ALCOHOL: none Drugs: None Lives: with Family Domestic Violence: Neg Current Problem List Problem List Problems Medical Problems: (1) Chest pain Status: Acute Current Medications Current Medications Current Medications Fentanyl Citrate (Fentanyl 2ml Vial) 50 mcg PRN Q15MIN PRN IV PAIN GREATER THAN 3/10; Start 05/31/17 at 00:15; Stop 06/01/17 at 00:14 Ondansetron HCl (Zofran) 4 mg PRN Q8HRS PRN IV NAUSEA/VOMITING Last administered on 05/31/17 06:00; Start 05/31/17 at 05:45; Stop 06/01/17 at 05:44 Morphine Sulfate 4 mg PRN Q2HR PRN IV PAIN; Start 05/31/17 at 05:45; Stop 06/01 at 05:44 Magnesium Sulfate/ Dextrose 100 ml @ 100 mls/hr 1X ONCE IV ; Start 05/31/17 at 06:00; Stop 05/31/17 at 06:59; Status DC Fentanyl Citrate (Fentanyl 2ml Vial) 50 mcg PRN Q2HR PRN IV PAIN Last administered on 05/31/17 06:01; Start 05/31/17 at 05:45 Magnesium Sulfate/ Dextrose 100 ml @ 25 mls/hr 1X ONCE IV Last administered on 05/31/17 06:02; Start 05/31/17 at 06:00; Stop 05/31/17 at 09:59; Status DC Ondansetron HCl (Zofran) 4 mg PRN Q8HRS PRN IV NAUSEA/VOMITING; Start 05/31/17 at 05:45 Sodium Chloride (Normal Saline Flush) 3 ml PRN DAILY PRN IV AFTER MEDS AND BLOOD DRAWS; Start 05/31/17 at 09:00 Morphine Sulfate 2 mg PRN Q4HRS PRN IV PAIN; Start 05/31/17 at 09:00 Magnesium Hydroxide (Milk Of Magnesia) 2,400 mg PRN Q12HR PRN PO CONSTIPATION; Start 05/31/17 at 09:00 Heparin Sodium (Porcine) (Heparin Sq) 5,000 unit Q8HRS SQ ; Start 05/31/17 at 14 :00 Aspirin (Darlene Aspirin) 325 mg DAILY08 PO ; Start 05/31/17 at 10:00 Calcium Acetate (Phoslo) 1,334 mg TIDWMEALS PO ; Start 05/31/17 at 12:00 Docusate Sodium (Colace) 100 mg DAILY PO ; Start 05/31/17 at 09:00 Furosemide (Lasix) 80 mg TID PO ; Start 05/31/17 at 09:00 Labetalol HCl (Trandate) 100 mg BID PO ; Start 05/31/17 at 10:00 Lidocaine (Lidoderm) 1 patch DAILY TP ; Start 05/31/17 at 09:00 Metoclopramide HCl (Reglan) 10 mg TIDBFRMEAL PO ; Start 05/31/17 at 11:30 Oxycodone/ Acetaminophen (Percocet 5/325) 1 tab PRN Q6HRS PRN PO PAIN; Start 05/31/17 at 09:00 Tramadol HCl (Ultram) 50 mg PRN Q4HRS PRN PO PAIN; Start 05/31/17 at 09:00 Albuterol Sulfate (Ventolin Neb Soln) 2.5 mg PRN Q4HRS PRN NEB SOA; Start 05/31 at 10:00 Aripiprazole (Abilify) 10 mg QHS PO ; Start 05/31/17 at 21:00 Erythromycin (E-Mycin) 250 mg BIDAC PO ; Start 05/31/17 at 16:30 Citalopram Hydrobromide (CeleXA) 20 mg DAILYWSUP PO ; Start 05/31/17 at 17:00 Budesonide (Pulmicort) 0.5 mg RTBID NEB ; Start 05/31/17 at 20:00 Gabapentin (Neurontin) 300 mg TID PO ; Start 05/31/17 at 14:00 Multivitamins (Thera M Plus) 1 tab DAILY PO ; Start 05/31/17 at 10:00 Vitamin B Complex/ Vitamin C (Christelle-Robert) 1 tab DAILY PO ; Start 05/31/17 at 10: 00 Active Scripts Active Augmentin 875-125 Tablet (Amoxicillin/Potassium Clav) 1 Each Tablet 1 Tab PO BID Metoclopramide Hcl 10 Mg Tablet 10 Mg PO TIDBFRMEAL Reported [Humalog] Tramadol Hcl 50 Mg Tablet 1 Tab PO PRN Q4HRS PRN Lamictal (Lamotrigine) 200 Mg Tablet 1 Tab PO DAILY Lamictal (Lamotrigine) 100 Mg Tablet 1 Tab PO DAILY Saphris (Asenapine Maleate) 5 Mg Tab.subl 1 Tab SL QHS Aspirin 325 Mg Tablet 1 Tab PO DAILY Gabapentin 300 Mg Capsule 300 Mg PO TID [Fish Oil] PO TID Advair 250-50 Diskus (Fluticasone/Salmeterol) 1 Each Disk.w.dev 1 Puff IH BID Dionisio-Tab (Erythromycin Base) 250 Mg Tablet.dr 250 Mg PO BID Dialyvite 800 With Zinc (Vitamin B Comp W-C/Fa/Zinc) 0.8 Mg Tablet 0.8 Mg PO DAILY Escitalopram Oxalate 20 Mg Tablet 10 Mg PO DAILYWSUP Colace (Docusate Sodium) 100 Mg Capsule 1 Cap PO DAILY Cyclobenzaprine Hcl 10 Mg Tablet 1 Tab PO PRN Q4HRS PRN Abilify (Aripiprazole) 20 Mg Tablet 10 Mg PO HS Lidoderm (Lidocaine) 700 Mg Adh..patch 1 Patch TP DAILY Percocet 5-325 Mg Tablet (Oxycodone/Acetaminophen) 1 Each Tablet 1 Tab PO PRN Q4 -6HRS PRN Metolazone 5 Mg Tablet 5 Mg PO DAILY Lamotrigine 100 Mg Tablet 1 Tab PO BID Zofran (Ondansetron Hcl) 4 Mg Tablet 4 Mg PO TID PRN Essential Daily (Multivit With Calcium,Iron,Min) 1 Each Tablet 1 Each PO DAILY Lasix (Furosemide) 80 Mg Tablet 80 Mg PO TID Trinessa (Norgestimate-Ethinyl Estradiol) 1 Each Tablet 1 Tab PO DAILY Phoslo (Calcium Acetate) 667 Mg Capsule 1,334 Mg PO TIDWMEALS Proair Hfa Inhaler (Albuterol Sulfate) 8.5 Gm Hfa.aer.ad 1 Puff INH PRN Q4HRS PRN Tri-Sprintec (Norgestimate-Ethinyl Estradiol) 1 Each Tablet 1 Tab PO DAILY Labetalol Hcl 100 Mg Tablet 1 Tab PO BID Allergies Allergies: Coded Allergies: lurasidone (Verified Allergy, Severe, 04/15/16) Rash, seizure (due to combination with other medications per patient-does not take any longer due to reaction) ROS Review of System GEN: no Fevers no Chills EYES: no new Visual Complaints ENT: no EN Drainage no Hearing deficiets CVS: no Orthopnea + CP RESP: + subj SOB + CUI GI: no Nausea no Vomiting NO Diarrhea : no Dysuria no Urgency HEME: no easy bruising no Palp Ly Nodes NEURO no Focal Weakness no Sz PSYCH: no Suicidal Ideation ch Depression SKIN: no Rashes ENDO: no Polyuria or Polydipsia no Hot/Cold Intolerance MU SK: no Arthraigia no Myalgia Physical Exam Physical Exam General Appearance: Awake Alert Oriented x 3 In min Distress from CP Eyes: VIsion Unchanged Conjunctiva Normal EN: No EN Drainage Mucous Memb. moist Neck: no JVD no JVP Supple no Thyromegaly - short thick neck CVS: S1 S2 + Murmur No Gallop No Rub tr Edema Resp: no Rales no Rhonchi no Acc. Muscle use GI: BAS +ve NO Bruit Non Tender Non Distended - Obese : no CVA tenderness; no Suprapubic Tenderness SKIN: no visible Rashes Breast Exam deferred Mu.Sk: Adequate ROM no Muscle Atrophy Heme: Unable to palpate Obvious LAD no palp Splenomegaly NEURO: Good Strength and Tone Cranial Nerves II - XII grossly intact Psych: Ch Depressed no Active hallucination Vital Signs Vital Signs Date Time Temp Pulse Resp B/P (MAP) Pulse Ox O2 Delivery O2 Flow Rate FiO2 05/31/17 07:24 98.7 99 17 120/51 (74) 92 Room Air 98.7 Assessment & Plan ESRD.: Current FLuid and E-lyte status does not necessitate emergent need for Dialysis. Will re-evaluate for Dialysis in am after CP is adequately evaluated and angina/ PE is ruled out Subj SOB - no CHF on CXR - suspect asso with etio of CP Anemia: Epogen as ordered. Transfuse with next HD as needed. Sev HypoMAg - not sure if this is accurate. It is being rechecked. Supplementation if needed HTN: Current BP meds reviewed. See orders for changes. Bone & Mineral: follow phos and alter binder regimen as needed CP - consider LHC since she will need pre-Txp eval / clearance too Discussed Plan of Care and prognosis etc. at length with family () and Cardio [employer] Labs Labs Laboratory Tests Test 05/30/17 23:55 05/31/17 01:17 05/31/17 05:11 05/31/17 08:56 Glucose (Fingerstick) 161 mg/dL (70-99) 305 mg/dL (70-99) 198 mg/dL (70-99) White Blood Count 9.4 x10^3/uL (4.0-11.0) Red Blood Count 3.02 x10^6/uL (3.50-5.40) Hemoglobin 10.2 g/dL (12.0-15.5) Hematocrit 30.0 % (36.0-47.0) Mean Corpuscular Volume 99 fL (79-100) Mean Corpuscular Hemoglobin 34 pg (25-35) Mean Corpuscular Hemoglobin Concent 34 g/dL (31-37) Red Cell Distribution Width 14.9 % (11.5-14.5) Platelet Count 240 x10^3/uL (140-400) Neutrophils (%) (Auto) 79 % (31-73) Lymphocytes (%) (Auto) 14 % (24-48) Monocytes (%) (Auto) 5 % (0-9) Eosinophils (%) (Auto) 2 % (0-3) Basophils (%) (Auto) 1 % (0-3) Neutrophils # (Auto) 7.4 x10^3uL (1.8-7.7) Lymphocytes # (Auto) 1.3 x10^3/uL (1.0-4.8) Monocytes # (Auto) 0.5 x10^3/uL (0.0-1.1) Eosinophils # (Auto) 0.2 x10^3/uL (0.0-0.7) Basophils # (Auto) 0.0 x10^3/uL (0.0-0.2) Prothrombin Time 12.1 SEC (11.7-14.0) Prothromb Time International Ratio 1.0 (0.8-1.1) Sodium Level 135 mmol/L (136-145) Potassium Level 4.8 mmol/L (3.5-5.1) Chloride Level 96 mmol/L (98-107) Carbon Dioxide Level 27 mmol/L (21-32) Anion Gap 12 (6-14) Blood Urea Nitrogen 44 mg/dL (7-20) Creatinine 6.5 mg/dL (0.6-1.0) Estimated GFR (Cockcroft-Gault) 7.6 Glucose Level 209 mg/dL (70-99) Calcium Level 9.4 mg/dL (8.5-10.1) Magnesium Level 0.0 mg/dL (1.8-2.4) Total Bilirubin < 0.1 mg/dL (0.2-1.0) Direct Bilirubin 0.1 mg/dL (0.0-0.2) Aspartate Amino Transf (AST/SGOT) 5 U/L (15-37) Alanine Aminotransferase (ALT/SGPT) < 6 U/L (14-59) Alkaline Phosphatase 152 U/L (46-116) Creatine Kinase 39 U/L (26-192) Creatine Kinase MB (Mass) 2.1 ng/mL (0.0-3.6) Creatine Kinase MB Relative Index 5.4 % (0-4) Troponin I Quantitative < 0.017 ng/mL (0.000-0.055) SN-Ggh-Y-Type Natriuretic Peptide 1084 pg/mL (0-124) Total Protein 7.3 g/dL (6.4-8.2) Albumin 3.3 g/dL (3.4-5.0) Triglycerides Level 597 mg/dL (0-150) Cholesterol Level 249 mg/dL (0-200) LDL Cholesterol, Calculated mg/dL (0-100) VLDL Cholesterol, Calculated 119 mg/dL (0-40) Non-HDL Cholesterol Calculated 212 mg/dL (0-129) HDL Cholesterol 37 mg/dL (40-60) Cholesterol/HDL Ratio 6.7 Lipase 270 U/L (73-393) Thyroid Stimulating Hormone (TSH) 1.037 uIU/mL (0.358-3.74) Laboratory Tests Test 05/30/17 23:55 05/31/17 01:17 05/31/17 05:11 05/31/17 08:56 Glucose (Fingerstick) 161 mg/dL (70-99) 305 mg/dL (70-99) 198 mg/dL (70-99) White Blood Count 9.4 x10^3/uL (4.0-11.0) Red Blood Count 3.02 x10^6/uL (3.50-5.40) Hemoglobin 10.2 g/dL (12.0-15.5) Hematocrit 30.0 % (36.0-47.0) Mean Corpuscular Volume 99 fL (79-100) Mean Corpuscular Hemoglobin 34 pg (25-35) Mean Corpuscular Hemoglobin Concent 34 g/dL (31-37) Red Cell Distribution Width 14.9 % (11.5-14.5) Platelet Count 240 x10^3/uL (140-400) Neutrophils (%) (Auto) 79 % (31-73) Lymphocytes (%) (Auto) 14 % (24-48) Monocytes (%) (Auto) 5 % (0-9) Eosinophils (%) (Auto) 2 % (0-3) Basophils (%) (Auto) 1 % (0-3) Neutrophils # (Auto) 7.4 x10^3uL (1.8-7.7) Lymphocytes # (Auto) 1.3 x10^3/uL (1.0-4.8) Monocytes # (Auto) 0.5 x10^3/uL (0.0-1.1) Eosinophils # (Auto) 0.2 x10^3/uL (0.0-0.7) Basophils # (Auto) 0.0 x10^3/uL (0.0-0.2) Prothrombin Time 12.1 SEC (11.7-14.0) Prothromb Time International Ratio 1.0 (0.8-1.1) Sodium Level 135 mmol/L (136-145) Potassium Level 4.8 mmol/L (3.5-5.1) Chloride Level 96 mmol/L (98-107) Carbon Dioxide Level 27 mmol/L (21-32) Anion Gap 12 (6-14) Blood Urea Nitrogen 44 mg/dL (7-20) Creatinine 6.5 mg/dL (0.6-1.0) Estimated GFR (Cockcroft-Gault) 7.6 Glucose Level 209 mg/dL (70-99) Calcium Level 9.4 mg/dL (8.5-10.1) Magnesium Level 0.0 mg/dL (1.8-2.4) Total Bilirubin < 0.1 mg/dL (0.2-1.0) Direct Bilirubin 0.1 mg/dL (0.0-0.2) Aspartate Amino Transf (AST/SGOT) 5 U/L (15-37) Alanine Aminotransferase (ALT/SGPT) < 6 U/L (14-59) Alkaline Phosphatase 152 U/L (46-116) Creatine Kinase 39 U/L (26-192) Creatine Kinase MB (Mass) 2.1 ng/mL (0.0-3.6) Creatine Kinase MB Relative Index 5.4 % (0-4) Troponin I Quantitative < 0.017 ng/mL (0.000-0.055) CO-Pkx-T-Type Natriuretic Peptide 1084 pg/mL (0-124) Total Protein 7.3 g/dL (6.4-8.2) Albumin 3.3 g/dL (3.4-5.0) Triglycerides Level 597 mg/dL (0-150) Cholesterol Level 249 mg/dL (0-200) LDL Cholesterol, Calculated mg/dL (0-100) VLDL Cholesterol, Calculated 119 mg/dL (0-40) Non-HDL Cholesterol Calculated 212 mg/dL (0-129) HDL Cholesterol 37 mg/dL (40-60) Cholesterol/HDL Ratio 6.7 Lipase 270 U/L (73-393) Thyroid Stimulating Hormone (TSH) 1.037 uIU/mL (0.358-3.74) Images Images Most recent ECHO here. The left ventricle is normal size. Left ventricle systolic function is normal. The Ejection Fraction is 50-55%. There is no significant aortic valvular stenosis. Doppler and Color Flow revealed trace to mild mitral regurgitation. Doppler and Color Flow revealed mild tricuspid regurgitation. The PA pressure was estimated at 28 mmHg. There is no evidence of significant pericardial effusion. EDWARD MOTA MD May 31, 2017 10:53
[2017-05-31 11:14] LABS: CALCIUM 8.1 mg/dL (8.5-10.1); CREATININE 6.4 mg/dL (0.6-1.0); GFR 7.8; POTASSIUM 4.3 mmol/L (3.5-5.1)
[2017-05-31] MEDS ORDERED: METOCLOPRAMIDE 10 MG TABLET. PO SCH (11:30)
[2017-05-31] MEDS: CALCIUM ACETATE 667 MG CAPSULE PO SCH ×2 (12:05→16:45)
[2017-05-31] MEDS: LABETALOL HCL 100 MG TABLET. PO SCH ×2 (12:05→20:43)
[2017-05-31] MEDS ORDERED: ALPRAZolam 0.25 MG TABLET PO ONE (12:45)
[2017-05-31] MEDS ORDERED: IOHEXOL 300 MG/ML 100ML VIAL. IV ONE (13:15)
[2017-05-31] MEDS: GABAPENTIN 300 MG CAPSULE. PO SCH ×2 (13:19→20:44)
[2017-05-31] MEDS: HEPARIN PF for SUB-Q USE 5,000 UNIT/0.5 ML VIAL. SQ SCH ×2 (13:25→22:28)
[2017-05-31] MEDS ORDERED: CONTRAST GIVEN MC PRN (13:30)
--- NOTE | 2017-05-31 13:40 | CONS ---
DATE OF CONSULTATION: PRIMARY PHYSICIAN: Dr. Rodriguez. REASON FOR CONSULTATION: ESRD dialysis. HISTORY OF PRESENT ILLNESS: The patient is a 27-year-old female with what is felt to be type 1 diabetes, although she claims she was diagnosed as type 2. She recently was at [facility], diagnosed with DKA episode. She has been battling nausea, vomiting, diarrhea for quite sometime and possible history of colitis. This all appears to have improved significantly. She is known to have poor IV access had an Infusaport placed on the left side prior to her discharge. She was at home last night, doing home hemodialysis as she usually does with her supervising treatment. Towards the end of treatment, she developed chest pain and some cramps in her lower extremities also. She was immediately taken off of dialysis. After being off of dialysis, the thinks she may have had what he thought was a presyncopal episode. Sugars were 198 by his report. EMS was called. EKG was done in the field, results of which are not available to me for review. She was brought into the hospital for further evaluation. She has not had much diarrhea although her magnesium on labs were 0.0. She continues to have issues with chest pain and subjective shortness of breath. She is not using oxygen. Chest x-ray was clear. We were asked to see her for her ESRD status and possible need for dialysis. I have discussed her care with her . For rest of the details, please see electronic renal consult note. EDWARD MOTA MD DR: DEBI/raza JOB#: [id number] / [id number]
--- NOTE | 2017-05-31 14:45 | RAD ---
CTA of the chest with contrast, 05/31/2017: History: Chest pain, shortness of breath Multidetector CT imaging was performed following an IV bolus injection of iodinated contrast material. Multiplanar reconstructions were produced including coronal and sagittal MIP images. No filling defects are seen in the central pulmonary arteries to suggest pulmonary emboli. The thoracic aorta is of normal caliber. A left Port-A-Cath extends into the right atrium. No mediastinal or hilar adenopathy is seen. Mild patchy infiltrate has developed in the posterior aspect of the right upper lobe. There are additional mild scattered nonspecific groundglass opacities in the lungs, similar to those seen on 08/09/2016. This is likely related to the fact that CTA studies are performed in expiration rather than inspiration. Chronic lung disease is less likely. No pleural fluid is evident. The liver is enlarged and demonstrates fatty change. The gallbladder is surgically absent. The spleen is at the upper limits of normal in size. IMPRESSION: 1. No CT evidence of central pulmonary emboli. 2. Mild patchy infiltrate in the posterior aspect of the right upper lobe suggesting pneumonia. 3. Hepatic steatosis. 4. Borderline splenomegaly PQRS Compliance Statement: One or more of the following individualized dose reduction techniques were utilized for this examination: 1. Automated exposure control 2. Adjustment of the mA and/or kV according to patient size 3. Use of iterative reconstruction technique
[2017-05-31 14:49] VITALS: BP 124/56
[2017-05-31] MEDS: ERYTHROMYCIN BASE 250 MG TABLET PO SCH (16:46)
[2017-05-31] MEDS ORDERED: CITALOPRAM 20 MG TABLET. PO SCH (17:00)
[2017-05-31] MEDS ORDERED: AZITHROMYCIN 500 MG in IV NORMAL SALINE 250ML 250 ML IV ONE (18:00)
[2017-05-31] MEDS ORDERED: cefTRIAXone IV Push 1 GM VIAL. IVP SCH (18:00)
[2017-05-31 19:00] VITALS: BP 93/54
[2017-05-31] MEDS: BUDESONIDE 0.5 MG/2 ML NEBU. NEB SCH (20:00)
[2017-05-31] MEDS ORDERED: ARIPiprazole 5 MG TABLET PO SCH (21:00)
[2017-05-31] MEDS ORDERED: ATORVASTATIN CALCIUM 40 MG TABLET. PO SCH (21:00)
[2017-05-31] MEDS: oxyCODONE/APAP 5/325 1 TAB TABLET PO PRN (22:30)
[2017-05-31 23:00] VITALS: BP 102/42
[2017-06-01 03:00] VITALS: BP 117/53
[2017-06-01 03:06] LABS: BASO % 1 % (0-3); EOS % 3 % (0-3); HEMATOCRIT 26.3 % (36.0-47.0); HEMOGLOBIN 8.8 g/dL (12.0-15.5); LYMPH # 1.9 x10^3/uL (1.0-4.8); LYMPH % 27 % (24-48); MEAN CORPUSCULAR HEMOGLOBIN 34 pg (25-35); MEAN CORPUSCULAR HGB CONC 34 g/dL (31-37); MEAN CORPUSCULAR VOLUME 101 fL (79-100); MONO % 5 % (0-9); NEUT % 65 % (31-73); PLATELET COUNT 203 x10^3/uL (140-400); RED CELL DISTRIBUTION WIDTH 14.7 % (11.5-14.5); WHITE BLOOD COUNT 7.2 x10^3/uL (4.0-11.0)
[2017-06-01 03:13] LABS: CALCIUM 8.5 mg/dL (8.5-10.1); CREATININE 8.4 mg/dL (0.6-1.0); GFR 5.7; POTASSIUM 4.9 mmol/L (3.5-5.1)
[2017-06-01] MEDS: HEPARIN PF for SUB-Q USE 5,000 UNIT/0.5 ML VIAL. SQ SCH (06:06)
[2017-06-01 07:00] VITALS: BP 144/72
[2017-06-01] MEDS: ERYTHROMYCIN BASE 250 MG TABLET PO SCH (07:30)
[2017-06-01] MEDS: BUDESONIDE 0.5 MG/2 ML NEBU. NEB SCH (07:32)
[2017-06-01] MEDS: CALCIUM ACETATE 667 MG CAPSULE PO SCH ×2 (08:00→12:04)
[2017-06-01 08:10] VITALS: BP 144/72
[2017-06-01] MEDS: oxyCODONE/APAP 5/325 1 TAB TABLET PO PRN (08:45)
[2017-06-01] MEDS: FUROSEMIDE 80 MG TABLET. PO SCH (08:47)
[2017-06-01] MEDS: LABETALOL HCL 100 MG TABLET. PO SCH (08:47)
[2017-06-01] MEDS: GABAPENTIN 300 MG CAPSULE. PO SCH (08:47)
[2017-06-01] MEDS: LIDOCAINE (700MG/PATCH) PATCH. TP SCH (08:50)
[2017-06-01 11:24] VITALS: BP 130/48
--- NOTE | 2017-06-01 11:43 | DISCH ---
DISCHARGE INSTRUCTIONS Condition on Discharge Condition on Discharge: Stable Activity After Discharge Activity Instructions for Disc: No restrictions Diet after Discharge Diet after Discharge: Renal Dialysis, Diabetic No Calorie Level Contacting the [facility] after DC Call your doctor for: If your condition worsens Follow-Up Follow up with: Follow-up with PCP in 1 week KENDRICK ALEMAN MD Jun 01, 2017 11:43
[2017-06-01] MEDS ORDERED: AZIT500T PO (11:49)
[2017-06-01] MEDS ORDERED: HEPARIN PF 500 UNIT/5 ML DISP.SYRIN. IV ONE (12:45)
--- NOTE | 2017-06-01 18:44 | PDOC3 ---
Discharge Summary [facility] Date of Admission: May 31, 2017 Discharge Date: Jun 01, 2017 Admitting Diagnosis 1. Presyncope 2. Chest Pain Problems: Final Diagnosis Problems Medical Problems: (1) Chest pain Status: Acute CONSULTS Cardiology, Renal Brief Hospital Course Ms. Perez is a 27 old CF who was recently discharged from [facility] complained of shortness of breath and chest pain during her dialysis session at home and was about to pass out according to her . Patient was seen by cardiology with no further work-up, nephrology handled her dialysis. Patient had a CTA chest which showed right sided pneumonia and patient was discharged with PO antibiotics. Patient History: FH: hypertension FHx: diabetes mellitus Problems: Disposition Home CONDITION AT DISCHARGE: Improved, Stable Diet renal/ada Scheduled Aripiprazole (Abilify), 10 MG PO HS, (Reported) Asenapine Maleate (Saphris), 1 TAB SL QHS, (Reported) Aspirin (Aspirin), 1 TAB PO DAILY, (Reported) Azithromycin (Zithromax), 1 TAB PO DAILY Calcium Acetate (Phoslo), 1,334 MG PO TIDWMEALS, (Reported) Docusate Sodium (Colace), 1 CAP PO DAILY, (Reported) Erythromycin Base (Dioinsio-Tab), 250 MG PO BID, (Reported) Escitalopram Oxalate (Escitalopram Oxalate), 10 MG PO DAILYWSUP, (Reported) Fluticasone/Salmeterol (Advair 250-50 Diskus), 1 PUFF IH BID, (Reported) Furosemide (Lasix), 80 MG PO TID, (Reported) Gabapentin (Gabapentin), 300 MG PO TID, (Reported) Labetalol Hcl (Labetalol Hcl), 1 TAB PO BID, (Reported) Lamotrigine (Lamotrigine), 1 TAB PO BID, (Reported) Lamotrigine (Lamictal), 1 TAB PO DAILY, (Reported) Lamotrigine (Lamictal), 1 TAB PO DAILY, (Reported) Lidocaine (Lidoderm), 1 PATCH TP DAILY, (Reported) Metoclopramide Hcl (Metoclopramide Hcl), 10 MG PO TIDBFRMEAL Metolazone (Metolazone), 5 MG PO DAILY, (Reported) Multivit With Calcium,Iron,Min (Essential Daily), 1 EACH PO DAILY, (Reported) Norgestimate-Ethinyl Estradiol (Tri-Sprintec), 1 TAB PO DAILY, (Reported) Norgestimate-Ethinyl Estradiol (Trinessa), 1 TAB PO DAILY, (Reported) Vitamin B Comp W-C/Fa/Zinc (Dialyvite 800 With Zinc), 0.8 MG PO DAILY, (Reported ) [Fish Oil], PO TID, (Reported) Scheduled PRN Albuterol Sulfate (Proair Hfa Inhaler), 1 PUFF INH PRN Q4HRS PRN for SHORTNESS OF BREATH, (Reported) Cyclobenzaprine Hcl (Cyclobenzaprine Hcl), 1 TAB PO PRN Q4HRS PRN for MUSCLE SPASTICITY, (Reported) Ondansetron Hcl (Zofran), 4 MG PO TID PRN for NAUSEA/VOMITING, (Reported) Oxycodone/Apap 5-325 (Percocet 5-325 Mg Tablet), 1 TAB PO PRN Q4-6HRS PRN for PAIN, (Reported) Tramadol Hcl (Tramadol Hcl), 1 TAB PO PRN Q4HRS PRN for PAIN, (Reported) Miscellaneous Medications [Humalog], (Reported) Discontinued Medications Amoxicillin/Potassium Clav (Augmentin 875-125 Tablet), 1 TAB PO BID Insulin Aspart (Novolog), 20 UNIT SQ TIDWMEALS, (Reported) Insulin Glargine,Hum.rec.anlog (Lantus Solostar), 25 UNIT SQ QHS, (Reported) Insulin Npl/Insulin Lispro (Humalog Mix 75-25 Vial), 15 UNIT SQ TIDAC, (Reported ) Follow Up With pcp in 1 week KENDRICK ALEMAN MD Jun 01, 2017 18:44
== END 2017-06-01 13:30 | disposition home or self-care (01) | DRG 682 ==
LOC: ER 23:44 → 5 SOUTH 05-31 03:13
PROVIDERS: ADMIT Internal Medicine; ATTEND Internal Medicine
DX: I12.0 Hypertensive chronic kidney disease with stage 5 chronic kidney disease or end stage renal disease (principal); J18.9 Pneumonia, unspecified organism; E11.22 Type 2 diabetes mellitus with diabetic chronic kidney disease; E66.01 Morbid (severe) obesity due to excess calories; Q21.1 Atrial septal defect; E11.319 Type 2 diabetes mellitus with unspecified diabetic retinopathy without macular edema; N18.6 End stage renal disease; Z68.41 Body mass index [BMI] 40.0-44.9, adult; R07.89 Other chest pain; E78.5 Hyperlipidemia, unspecified; F17.210 Nicotine dependence, cigarettes, uncomplicated; G47.33 Obstructive sleep apnea (adult) (pediatric); F31.9 Bipolar disorder, unspecified; F41.9 Anxiety disorder, unspecified; J45.909 Unspecified asthma, uncomplicated; Z79.4 Long term (current) use of insulin; Z79.82 Long term (current) use of aspirin; Z82.49 Family history of ischemic heart disease and other diseases of the circulatory system; Z83.3 Family history of diabetes mellitus; Z99.2 Dependence on renal dialysis; Z90.49 Acquired absence of other specified parts of digestive tract; Z88.8 Allergy status to other drugs, medicaments and biological substances
CPT/HCPCS: 36415; 71010; 71275; 80048; 80061; 80076; 82553; 82962; 83690; 83735; 83880; 84443; 84484; 85025; 85379; 85610; 93005; 94250; 94640; 94760; J0456; J0696; J2405; J3010; J3475; J7050; J7626; 99285-25; J7030